=== PATIENT | female | born 1955 | race Caucasian/White ===

== ENCOUNTER → 2016-07-22 | Outpatient (CLI) | payer MEDICARE ==
[2016-03-20 11:00] VITALS: BP 94/52
[~2016-07-22] MED LIST: ASPI81TA2 PO; BACL20TA PO; BUTA1TAB23 PO; BUTA1TAB28 PO; CELE200C PO; CHOL5000 PO; DIAZEPAM10 MG PO; DOCU100C PO; FLUO40CA2 PO; FLUT16SP NS; GABA600T2 PO; GUAI-42 PO; IBUP-1060 PO; MULT-98 PO; MV-M1TAB8 PO; OXYB10TA PO; OXYB5TAB7 PO; OXYC15TA PO; VENTOLIN HFA18 GM INH; VIT1TABL65 PO; VIT1TABL81 PO; VIT500LI PO; Vitamin B 12; WARF-78 PO
--- NOTE | 2016-07-22 15:09 | EKG ---
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
[2016-07-22 15:57] LABS: BASO # 0.1 x10^3/uL (0.0-0.2); BASO % 1 % (0-3); EOS % 2 % (0-3); LYMPH # 2.3 x10^3/uL (1.0-4.8); LYMPH % 26 % (24-48); MEAN CORPUSCULAR HEMOGLOBIN 27 pg (25-35); MEAN CORPUSCULAR HGB CONC 33 g/dL (31-37); MEAN CORPUSCULAR VOLUME 81 fL (79-100); MONO % 8 % (0-9); NEUT % 64 % (31-73); PLATELET COUNT 210 x10^3/uL (140-400); RED BLOOD COUNT 5.55 x10^6/uL (3.50-5.40); RED CELL DISTRIBUTION WIDTH 17.3 % (11.5-14.5); WHITE BLOOD COUNT 8.7 x10^3/uL (4.0-11.0)
[2016-07-22 15:58] LABS: BILIRUBIN,URINE NEGATIVE (NEG); GLUCOSE,URINE NEGATIVE (NEG); NITRITE,URINE NEGATIVE (NEG); PROTEIN,URINE NEGATIVE (NEG-TRACE); UROBILINOGEN,URINE 0.2 mg/dL (0.2 mg/dL)
[2016-07-22 16:06] LABS: BACTERIA,URINE 0 /HPF (0-FEW); RBC,URINE OCC /HPF (0-2); SQUAMOUS EPITHELIAL CELL,UR MOD /LPF
[2016-07-22 16:07] LABS: PROTHROMBIN TIME PATIENT 12.8 SEC (11.7-14.0)
--- NOTE | 2016-07-22 16:08 | RAD ---
Exam: PA and lateral chest radiograph History: Preoperative for hip surgery. Comparison: 05/30/2015. Findings: Cardiomediastinal silhouette is within normal limits for size. Bilateral lung [place] are free of focal infiltrate. No pleural effusion is seen. Again seen is mild accentuation of interstitial markings, may indicate mild fibrotic change. ACDF changes are seen involving the lower cervical spine. Impression: 1. No acute cortical pulmonary process. 2. Mild fibrotic change. 3. ACDF changes of lower cervical spine.
[2016-07-22 16:15] LABS: ALBUMIN 3.9 g/dL (3.4-5.0); CALCIUM 10.4 mg/dL (8.5-10.1); CREATININE 0.5 mg/dL (0.6-1.0); GFR 125.9; POTASSIUM 4.4 mmol/L (3.5-5.1)
== END | disposition home or self-care (01) ==
LOC: SURGPAT 13:18
PROVIDERS: ATTEND Orthopaedic Surgery
DX: S72.112A Displaced fracture of greater trochanter of left femur, initial encounter for closed fracture (principal); W19.XXXA Unspecified fall, initial encounter; Y93.89 Activity, other specified; Y92.89 Other specified places as the place of occurrence of the external cause; Y99.8 Other external cause status
CPT/HCPCS: 36415; 71020; 80048; 81001; 82040; 85027; 85610; 85651; 85730; 87086; 87641; 93005

== ENCOUNTER 2016-08-22 15:23 | Emergency (ER) | payer MEDICARE ==
[~2016-08-22] VITALS: Ht 165.1 cm; Wt 46.7 kg
[~2016-08-22 15:23] MED LIST changes: +ASCO10002 PO; +WARF3TAB7 PO
--- NOTE | 2016-08-22 15:41 | EKG ---
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
--- NOTE | 2016-08-22 16:18 | PHYS DOC ---
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 She arrives by EMS stating that she had fallen and she was tried to get herself to the bathroom. She states that he she hit her head. She denies any loss of consciousness. Patient states that she is having altered mental status where she has forgotten her name and for and some dates and things that are going on. She states that she is aware of this because the nursing staff has told her. Patient states she is having thoracic and lumbar spine pain as well as left hip pain and discomfort. Patient states she is over at the [facility] because she had left hip surgery, although I do not see any surgical incisions on the left hip. Review of Systems Review of Systems Constitutional: Denies fever or chills [] Eyes: Denies change in visual acuity, redness, or eye pain [] HENT: Denies nasal congestion or sore throat [] Respiratory: Denies cough or shortness of breath [] Cardiovascular: No additional information not addressed in HPI [] GI: Denies abdominal pain, nausea, vomiting, bloody stools or diarrhea [] : Denies dysuria or hematuria [] Musculoskeletal: back pain left joint pain [] Integument: Denies rash or skin lesions [] Neurologic: Denies headache, focal weakness or sensory changes [] Endocrine: Denies polyuria or polydipsia [] Allergies Allergies Allergies Coded Allergies Type Severity Reaction Last Updated Verified No Known Drug Allergies 08/02/16 No Physical Exam Physical Exam Constitutional: Well developed, well nourished, no acute distress, non-toxic appearance. [] HENT: Normocephalic, atraumatic, bilateral external ears normal, oropharynx moist, no oral exudates, nose normal. Bilateral tympanic membranes appear to be normal. Eyes: PERRLA, EOMI, conjunctiva normal, no discharge. [] Neck: Normal range of motion, no tenderness, supple, no stridor. [] Cardiovascular:Heart rate regular rhythm, no murmur [] Lungs & Thorax: Bilateral breath sounds clear to auscultation [] Abdomen: Bowel sounds normal, soft, no tenderness, no masses, no pulsatile masses. [] Skin: Warm, dry, no erythema, no rash. [] Back: No cervical spine tenderness no step-offs no deformities no crepitus noted. Patient does have tenderness noted on the thoracic and lumbar spine area. Crepitus no deformities or step-offs noted. Extremities: Left hip tenderness, no cyanosis, no clubbing, ROM intact, no edema. No deformities no bruising and no discoloration noted. Peripheral pulses are 2+ cap refill brisk less than 2 seconds. Right leg appears to be shorter than the left. Neurologic: Alert and oriented X 3, normal motor function, normal sensory function, no focal deficits noted. Pleasant oriented to person place and time. Psychologic: Affect normal, judgement normal, mood normal. [] Current Patient Data Vital Signs Vital Signs Date Time Temp Pulse Resp B/P (MAP) Pulse Ox O2 Delivery O2 Flow Rate FiO2 08/22/16 18:14 72 18 144/90 (108) 95 Room Air 08/22/16 15:23 97.6 97.6 Lab Values Laboratory Tests Test 08/22/16 17:07 08/22/16 17:14 White Blood Count 9.2 x10^3/uL (4.0-11.0) Red Blood Count 4.20 x10^6/uL (3.50-5.40) Hemoglobin 11.3 g/dL (12.0-15.5) L Hematocrit 34.6 % (36.0-47.0) L Mean Corpuscular Volume 82 fL (79-100) Mean Corpuscular Hemoglobin 27 pg (25-35) Mean Corpuscular Hemoglobin Concent 33 g/dL (31-37) Red Cell Distribution Width 17.3 % (11.5-14.5) H Platelet Count 350 x10^3/uL (140-400) Neutrophils (%) (Auto) 71 % (31-73) Lymphocytes (%) (Auto) 19 % (24-48) L Monocytes (%) (Auto) 7 % (0-9) Eosinophils (%) (Auto) 3 % (0-3) Basophils (%) (Auto) 1 % (0-3) Neutrophils # (Auto) 6.5 x10^3uL (1.8-7.7) Lymphocytes # (Auto) 1.7 x10^3/uL (1.0-4.8) Monocytes # (Auto) 0.6 x10^3/uL (0.0-1.1) Eosinophils # (Auto) 0.3 x10^3/uL (0.0-0.7) Basophils # (Auto) 0.1 x10^3/uL (0.0-0.2) Prothrombin Time 24.3 SEC (11.7-14.0) H Prothrombin Time INR 2.4 (0.8-1.1) H Sodium Level 140 mmol/L (136-145) Potassium Level 4.5 mmol/L (3.5-5.1) Chloride Level 101 mmol/L (98-107) Carbon Dioxide Level 31 mmol/L (21-32) Anion Gap 8 (6-14) Blood Urea Nitrogen 17 mg/dL (7-20) Creatinine 0.7 mg/dL (0.6-1.0) Estimated GFR (Cockcroft-Gault) 85.4 BUN/Creatinine Ratio 24 (6-20) H Glucose Level 90 mg/dL (70-99) Calcium Level 9.5 mg/dL (8.5-10.1) Total Bilirubin 0.3 mg/dL (0.2-1.0) Aspartate Amino Transferase (AST) 25 U/L (15-37) Alanine Aminotransferase (ALT) 19 U/L (14-59) Alkaline Phosphatase 111 U/L (46-116) Troponin I Quantitative < 0.017 ng/mL (0.000-0.055) Total Protein 6.4 g/dL (6.4-8.2) Albumin 3.1 g/dL (3.4-5.0) L Albumin/Globulin Ratio 0.9 (1.0-1.7) L Urine Collection Type Unknown Urine Color Yellow Urine Clarity Clear Urine pH 6.5 Urine Specific [place] 1.010 Urine Protein Negative mg/dL (NEG-TRACE) Urine Glucose (UA) Negative mg/dL (NEG) Urine Ketones (Stick) Negative mg/dL (NEG) Urine Blood Negative (NEG) Urine Nitrite Negative (NEG) Urine Bilirubin Negative (NEG) Urine Urobilinogen Dipstick 1.0 mg/dL (0.2 mg/dL) Urine Leukocyte Esterase Trace (NEG) Urine RBC 0 /HPF (0-2) Urine WBC 0 /HPF (0-4) Urine Squamous Epithelial Cells Few /LPF Urine Transitional Epithelial Cells Few /LPF Urine Amorphous Sediment Present /HPF Urine Bacteria Moderate /HPF (0-FEW) Laboratory Tests 08/22/16 17:07 Laboratory Tests 08/22/16 17:07 EKG EKG [] Radiology/Procedures Radiology/Procedures [] Thoracic and lumbar x-rays reviewed by myself. Hip x-rays reviewed by radiology. Head neck CT negative for acute pathology. Course & Med Decision Making Course & Med Decision Making Pertinent Labs and Imaging studies reviewed. (See chart for details) Dr. Almeida is aware of the assessment obtained. He will also be assisting with patient's care. [] 60-year-old female presenting to the emergency department for reported confusion and reported low blood pressure however on arrival here the patient is GCS of 15 with a normal blood pressure. Her respiratory rate was recorded at 10 however during my examination the patient's respiratory rate was 20 and believe this to be an error. A loved one is here with the patient today and reports intermittent confusion over the past few days. Head CT unremarkable. GCS 15. Patient is nontoxic appearing. Normal vital signs. X-rays of the spine are unremarkable for acute pathology. Head CT unremarkable. A Shantz warfarin is within therapeutic range. Urine analysis showed moderate bacteriuria. We'll give the patient Keflex given the patient is on warfarin currently and have the patient recheck her INR over the next 2 days with her primary care doctor. The patient was in discharged back to her long-term care facility. They were to return if their symptoms worsened or if they were concerned for any reason. Face -to-face discharge instructions and return precautions were given. Patient's questions were answered to their satisfaction. Patient is comfortable plan. Dragon Disclaimer Dragon Disclaimer This electronic medical record was generated, in whole or in part, using a voice recognition dictation system. Departure Departure Impression: Primary Impression: Fatigue Additional Impression: Malaise Disposition: HOME, SELF-CARE Condition: STABLE Referrals: WILLOW GANDHI MD (PCP) Patient Instructions: Warfarin, Bacz-[id number] Additional Instructions: Thank you for allowing us to participate in your care today. 1. You will need your INR checked in 2 days. This will be done through your primary care doctor 2. Come back for any new or concerning findings. Followup with your primary care physician in 2 days if your symptoms do not improve. If you do not have a primary care provider you can ask for a list of our primary care providers. Return to the emergency department you have any new or concerning findings. This should be evaluated by the primary care physician and any necessary consulting services for continued management within a few days after discharge. Return to emergency room if you have any new or concerning symptoms including but not limited to fever, chills, nausea, vomiting, intractable pain, any new rashes, chest pain, shortness of air, uncontrolled bleeding, difficulty breathing, and/or vision loss. You may have been prescribed medication that can change in your level of thinking and ability to operate machinery. These medications include hydrocodone and Ativan. Also, Benadryl has been known to do this as well. Be sure to check with your pharmacist and ask if the medications you've prescribed can affect your level of consciousness. I recommend not operating heavy machinery or driving while on medication such as these. Scripts Cephalexin (KEFLEX) 250 Mg Capsule 1 CAP PO QID, #28 CAP Prov: CINDY ALMEIDA MD 08/22/16 Problem Qualifiers ZONIA NORRIS APRN August 22, 2016 16:18 CINDY ALMEIDA MD August 22, 2016 18:12
--- NOTE | 2016-08-22 16:45 | RAD ---
EXAM: Head and cervical spine CT without contrast. HISTORY: Fall. TECHNIQUE: Computed tomography head and cervical spine were obtained without contrast. One or more of the following individualized dose reduction techniques were utilized for this examination: 1. Automated exposure control. 2. Adjustment of the mA and/or kV according to patient size. 3. Use of iterative reconstruction technique. COMPARISON: 10/03/2006. FINDINGS: Head: There is no acute or subacute hemorrhage. There is no mass effect or midline shift. There is no hydrocephalus. There are scattered areas of hypodensity within the cerebral white matter, likely due to chronic small vessel disease. There is mild age-appropriate cerebral volume loss. There is no fracture. There is moderate ethmoid sinus mucosal thickening. There is complete opacification of the right frontal sinus with associated wall thickening due to chronic sinusitis. There are findings consistent with maxillary antrostomy/uncinectomy surgery and turbinate resection. The mastoid air cells are clear. Cervical spine: There is instrumented anterior spinal fusion and interbody fusion and C4-C6. There is posterior spinal fusion instrumentation traversing the right C3 and C4 lamina. There is mild anterolisthesis of C7 on T1. There is bulky osteophyte formation at the craniocervical junction. There is surrounding pannus which may be due to the sequela of rheumatoid arthritis. There is no suspicious lytic or sclerotic osseous lesion. No fracture is seen. There is calcified plaque within the carotid bifurcations. The thyroid is enlarged. No discrete thyroid lesion is seen. At C2-C3, there is a disc bulge and endplate remodeling. There is no stenosis. At C3-C4, there is a broad-based posterior central disc osteophyte complex bulge and a disc bulge and endplate remodeling. There is uncovertebral arthropathy. There is mild bilateral foraminal stenosis. There is mild central canal stenosis. At C4-C5, there is a right paracentral disc osteophyte complex. There is instrumented fusion. There is mild right foraminal stenosis. There is mild central canal stenosis. At C5-C6, there is a broad-based posterior central to right paracentral osteophyte superimposed on endplate remodeling. There is mild right foraminal stenosis. There is mild central canal stenosis. At C6-C7, there is a disc bulge and endplate remodeling. There is bilateral uncovertebral arthropathy. There is moderate right and mild left foraminal stenosis. There is mild central canal stenosis. IMPRESSION: 1. No acute intracranial finding or evidence of acute cervical spine trauma. 2. Decreased attenuation within the cerebral white matter, a nonspecific finding likely due to chronic small vessel disease. 3. Multilevel degenerative changes involving the cervical spine, described in detail above. 4. Instrumented fusion at C4-C6 and involving the right C3 and C4 lamina.
[2016-08-22 17:15] LABS: BASO # 0.1 x10^3/uL (0.0-0.2); BASO % 1 % (0-3); EOS % 3 % (0-3); HEMATOCRIT 34.6 % (36.0-47.0); HEMOGLOBIN 11.3 g/dL (12.0-15.5); LYMPH # 1.7 x10^3/uL (1.0-4.8); LYMPH % 19 % (24-48); MEAN CORPUSCULAR HEMOGLOBIN 27 pg (25-35); MEAN CORPUSCULAR HGB CONC 33 g/dL (31-37); MEAN CORPUSCULAR VOLUME 82 fL (79-100); MONO % 7 % (0-9); NEUT % 71 % (31-73); PLATELET COUNT 350 x10^3/uL (140-400); RED CELL DISTRIBUTION WIDTH 17.3 % (11.5-14.5); WHITE BLOOD COUNT 9.2 x10^3/uL (4.0-11.0)
[2016-08-22 17:20] LABS: BILIRUBIN,URINE NEGATIVE (NEG); GLUCOSE,URINE NEGATIVE (NEG); NITRITE,URINE NEGATIVE (NEG); PH,URINE 6.5; PROTEIN,URINE NEGATIVE (NEG-TRACE)
[2016-08-22 17:22] LABS: CALCIUM 9.5 mg/dL (8.5-10.1); CREATININE 0.7 mg/dL (0.6-1.0); GFR 85.4; POTASSIUM 4.5 mmol/L (3.5-5.1)
[2016-08-22 17:24] LABS: INR 2.4 (0.8-1.1); PROTHROMBIN TIME PATIENT 24.3 SEC (11.7-14.0)
[2016-08-22 17:28] LABS: ALBUMIN 3.1 g/dL (3.4-5.0); ALBUMIN/GLOBULIN RATIO 0.9 (1.0-1.7); TOTAL BILIRUBIN 0.3 mg/dL (0.2-1.0); TOTAL PROTEIN 6.4 g/dL (6.4-8.2)
--- NOTE | 2016-08-22 17:33 | RAD ---
EXAM: Pelvis and lateral hips, 5 views. HISTORY: Pain. COMPARISON: 08/17/2016. FINDINGS: A frontal view of the pelvis and frontal and frog-leg views of both hips are obtained. There is a left hip arthroplasty in expected position. There is a lateral plate and cerclage wires traversing the femoral stem component likely due to a prior periprosthetic fracture. The right hip is unremarkable. There is degenerative change at the lower lumbar levels, incompletely a vaginal the current exam. There is bone demineralization. IMPRESSION: 1. Left hip arthroplasty with lateral femoral internal fixation and cerclage wires. 2. Degenerative change involving the lumbar spine. 3. Bone demineralization.
--- NOTE | 2016-08-22 17:33 | RAD ---
EXAM: Lumbar spine, 3 views; thoracic spine, 3 views. HISTORY: Pain. COMPARISON: MRI dated 11/05/2015. FINDINGS: Lumbar spine: There is mild lumbar levoscoliosis. There is a mild anterior wedge compression deformity of L1, chronic in appearance. There is endplate remodeling and facet arthropathy at all levels, predominantly L4-L5 and L5-S1. There is bone demineralization. There is partial visual lesion of the left hip arthroplasty. Thoracic spine: There is no listhesis. The vertebral bodies are normal in height and the disc spaces are preserved. There is partial visualization of anterior cervical spinal fusion instrumentation. IMPRESSION: 1. No acute osseous finding. 2. Mild chronic anterior wedge compression deformity of L1, stable compared to the prior MRI dated 11/05/2015. 3. Multilevel degenerative change throughout the lumbar spine, predominantly at the lower lumbar levels. 4. Lumbar scoliosis.
[2016-08-22 17:36] LABS: BACTERIA,URINE MODERATE /HPF (0-FEW); RBC,URINE 0 /HPF (0-2); SQUAMOUS EPITHELIAL CELL,UR FEW /LPF; WBC,URINE 0 /HPF (0-4)
[2016-08-22 18:14] VITALS: BP 144/90
[2016-08-22] MEDS ORDERED: CEPH-263 PO (18:14)
== END 2016-08-22 18:33 | disposition home or self-care (01) ==
LOC: ER 16:59
DX: R53.83 Other fatigue (principal); R53.81 Other malaise; M54.6 Pain in thoracic spine; M54.5 Low back pain; R41.82 Altered mental status, unspecified; M25.552 Pain in left hip; I95.9 Hypotension, unspecified; F41.9 Anxiety disorder, unspecified; J44.9 Chronic obstructive pulmonary disease, unspecified; F32.9 Major depressive disorder, single episode, unspecified; G62.9 Polyneuropathy, unspecified; F17.200 Nicotine dependence, unspecified, uncomplicated; Z98.890 Other specified postprocedural states; W18.39XA Other fall on same level, initial encounter; Y93.89 Activity, other specified; Y92.89 Other specified places as the place of occurrence of the external cause; Y99.8 Other external cause status
CPT/HCPCS: 36415; 70450; 72072; 72100; 72125; 73521; 80053; 81001; 84484; 85027; 85610; 87086; 93005; 99285-25

== ENCOUNTER → 2016-11-16 | Outpatient (CLI) | payer MEDICARE ==
[~2016-11-16] MED LIST changes: +ASPI-630 PO; -ASPI81TA2 PO; +CEPH-263 PO; +DOCU-150 PO; -DOCU100C PO; +GUAI-107 PO; -GUAI-42 PO
--- NOTE | 2016-11-16 12:42 | KCIC ---
Bone mineral density exam History: Postmenopausal, takes calcium supplement, hysterectomy, history of eating disorder Comparison: None Findings: Bone mineral density examination utilizing DEXA was performed. Right hip bone mineral density of 0.503 g/cm2 corresponds with a T score -3.6, Z score -2.6. The bone mineral density of the lumbar spine was 0.662 g/cm2 which corresponds with a T-score of -3.5, Z score -2.0. By World Congress on Osteoporosis criteria, a T score of 0 to-1 SD is considered to be within normal limits. A T score of -1 to -2.5 SD is considered osteopenia. A T score less than -2.5 SD is considered osteoporosis Impression: 1. There is osteoporosis of the lumbar spine and the right hip. Electronically signed by: Júnior Valentino MD (11/16/2016 12:39 PM) [facility]-KC[facility]
== END | disposition home or self-care (01) ==
LOC: KCIC DEXA 10:37
PROVIDERS: ATTEND Family Medicine
DX: M81.0 Age-related osteoporosis without current pathological fracture (principal); Z78.0 Asymptomatic menopausal state
CPT/HCPCS: 77080

== ENCOUNTER → 2016-11-25 | Outpatient (CLI) | payer MEDICARE ==
--- NOTE | 2016-11-25 11:22 | KCIC ---
Examination: MRI of the left ankle without contrast HISTORY: History of left ankle stress fracture, Comparison: None available TECHNIQUE: Multiplanar, multisequence MR imaging of the left ankle is performed without contrast FINDINGS: The attachment of the Achilles tendon to the calcaneus grossly appears intact. The attachment of the plantar fascia to inferior aspect of the calcaneus grossly appears intact. Fat is present within the sinus tarsi. The ankle mortise appears intact. Mild degenerative changes identified in the ankle joint. The visualized flexor tendons, anterior extensor compartment tendons, peroneal tendons grossly appears unremarkable. The visualized anterior talofibular ligament, superior talofibular ligament, anterior tibiofibular ligament and posterior tibiofibular ligament grossly appears intact. The deltoid ligament is intact. The visualized skeleton fibular ligament is intact. There is mild trabecular edema identified in the distal tip of the lateral malleolus. Minimal soft tissue edema identified posterior to the calcaneus in the soft tissue. No acute fracture identified. Minimal fluid identified in the posterior subtalar joint. IMPRESSION: 1. Mild trabecular edema identified in the distal tip of the lateral malleolus, nonspecific could be stress reactive change. 2. Mild degenerative changes ankle joint. 3. Minimal amount of fluid identified in the posterior subtalar joint, nonspecific. Electronically signed by: Ray Hayden MD (11/25/2016 11:19 AM) [facility]-KC[facility]
== END | disposition home or self-care (01) ==
LOC: KCIC MRI 08:58
PROVIDERS: ATTEND Orthopaedic Surgery Foot and Ankle Surgery
DX: M19.072 Primary osteoarthritis, left ankle and foot (principal)
CPT/HCPCS: 73721

== ENCOUNTER 2017-09-05 16:47 | Emergency (ER) | payer MEDICARE ==
[2017-09-05] MEDS: HYDROcodone/APAP 5/325MG 1 TAB TABLET PO (17:43)
== END 2017-09-05 19:09 | disposition home or self-care (01) ==
LOC: ER 16:47
DX: S09.90XA Unspecified injury of head, initial encounter (principal); S43.401A Unspecified sprain of right shoulder joint, initial encounter; M54.2 Cervicalgia; J44.9 Chronic obstructive pulmonary disease, unspecified; M81.0 Age-related osteoporosis without current pathological fracture; R42 Dizziness and giddiness; Z90.710 Acquired absence of both cervix and uterus; W18.39XA Other fall on same level, initial encounter; Y93.89 Activity, other specified; Y92.89 Other specified places as the place of occurrence of the external cause; Y99.8 Other external cause status
CPT/HCPCS: 70450; 70486; 72125; 73030; 99284

== ENCOUNTER → 2018-01-17 | Outpatient (CLI) | payer MEDICARE ==
[2017-09-05 17:16] VITALS: BP 178/106
[~2018-01-17] MED LIST changes: +ACET-704 PO; +ALEN70TA5 PO; +AMLO2.5T3 PO; -GUAI-107 PO; +GUAI-108 PO; +HYDR-971 PO; +IOHEXOL 180 MG/ML 10 ML VIAL. ONE; +LIDOCAINE 1% PF 2 ML VIAL. ONE; +ONDA4TAB11 PO; +POLY2500 PO; +SERT100T PO; +WARF3TAB50 PO; -WARF3TAB7 PO; +methylPREDNISolone ACETATE 40 MG/ML VIAL. ONE; +methylPREDNISolone ACETATE 80 MG/ML VIAL. ONE; +vitamin b 6 PO
--- NOTE | 2018-01-17 13:25 | PAIN ---
DATE OF SERVICE: 01/17/2018 DIAGNOSES: Lumbar radiculopathy with lumbar degenerative disk disease, does wake up. HISTORY OF PRESENT ILLNESS: The patient is a 62-year-old female who returns for followup, last seen 01/21/2016, underwent lumbar epidural steroid injections at that time. The patient did well, but only temporarily for about 3-4 weeks following the injections. The patient reports it is only about 50% better at that time. The patient has been [facility] since this time with a foot surgery on her left foot since her last visit and also revision of her left hip surgery with new instrumentation. The patient reports significant pain in the low back, bilateral lower extremities, mostly in the left leg, mostly at lateral anterior aspect of the thigh, anterior medial thigh, medial lower leg, posterior lower leg into the left foot, aching, sharp, tight, tingling, cramping and becoming radiating more constant, more unbearable, worse with walking, standing, changing positions, also wakens her from sleep on and off, but not every night. The patient reports pain is 7 on a scale of 10 at all times, worst, average and its least and is a 7 today. The patient reports no new motor or sensory deficits, but significant pain, which has been managed recently with oxycodone as well as tramadol and then most recently Tylenol No. 3, which she is taking currently and also taking gabapentin, meloxicam, Celebrex. The patient reports still significant pain despite the medicine management that she has been undergoing and was not happy with the management that she is receiving and returns here on the recommendation of her orthopedic surgeon to consider other options and possible even a spinal cord stimulator in the future. PHYSICAL EXAMINATION: VITAL SIGNS: The patient's blood pressure 192/105, pulse 69, respirations 18, temperature 98.8 degrees Fahrenheit, weight is 98 pounds. GENERAL: The patient is awake, alert, oriented, appropriate, very pleasant demeanor. HEENT: Head is normocephalic, atraumatic. Extraocular movements are intact, symmetrical. Oral cavity: Mucous membranes moist and pink. Dentition is intact. NECK: Shows anterior throat supple without palpable lymphadenopathy noted. Swallow reflex is symmetrical. CHEST: Shows normal with inspection. Breath sounds are clear to auscultation bilaterally. HEART: Shows S1, S2 clear. No murmurs auscultated. ABDOMEN: Soft, nontender, nondistended. No palpable organomegaly is noted. No rebound or guarding demonstrated. BACK: Shows spine grossly in the midline. Normal appearing thoracic kyphosis and minor flattening of lumbar lordotic curvature. Lumbar paraspinous muscle shows symmetrical on inspection and palpation shows some moderate tenderness diffusely bilaterally, but only diffusely without radiation. The patient has good rotational motion of the lumbar spine, both laterally as well as extension and flexion without significant difficulty. EXTREMITIES: Lower extremities show deep tendon reflexes at 1+ in the patellar and tendo calcaneus tendons. Motor is approximately 3-4 on a scale of 5 on the left and 4/5 on the right with dorsiflexion, extension, quadriceps and hamstring flexion. The patient has well-healed surgical scarring over the left hip as well as the left anterior aspect of the foot. Peripheral pulses are 1+, however, about posteriorly in the posterior tibial without any edema that is bilaterally. Straight leg raising noted to be positive on the left, but it is difficult to establish secondary to the patient's recent extensive hip surgery. Options were discussed with the patient. The patient's old chart was reviewed as her medication regimen updated. Current review of systems updated today as well. We will proceed with a lumbar epidural steroid injection today with fluoroscopic guidance. She has done fairly well with these in the past. Risks were again discussed including, but not limited to bleeding, infection, possibility of epidural hematoma, subsequent neurologic compromise, dural puncture, headaches, spinal cord and/or nerve damage, side effects of steroid medication and poor results regarding pain control. The patient understands and wished to proceed. The patient will return to clinic in approximately 2 weeks for followup, was counseled on return appointment, activity level and side effects to be aware of. The patient also given information regarding spinal cord stimulator to look into this as well. DIAGNOSES: Lumbar radiculopathy with lumbar degenerative disk disease. PROCEDURE: Lumbar epidural steroid injection, translaminar approach L4-L5 level using C-arm fluoroscopic guidance under sterile prep and drape using local anesthetic. MEDICATION INJECTED: A total of 120 mg of Depo-Medrol plus 10 mL of preservative-free normal saline and 2 mL of Isovue for contrast. CONDITION AT DISCHARGE: Stable. The patient tolerated the procedure well, had no complications. ELLIS NEWMAN MD DR: John JOB#: [id number] / [id number]
== END | disposition home or self-care (01) ==
LOC: PNCL 09:55
PROVIDERS: ATTEND Anesthesiology
DX: M51.16 Intervertebral disc disorders with radiculopathy, lumbar region (principal); Z79.899 Other long term (current) drug therapy; Z90.710 Acquired absence of both cervix and uterus; J44.9 Chronic obstructive pulmonary disease, unspecified; Z98.49 Cataract extraction status, unspecified eye; Z90.721 Acquired absence of ovaries, unilateral; M19.90 Unspecified osteoarthritis, unspecified site; Z96.642 Presence of left artificial hip joint; F41.9 Anxiety disorder, unspecified; F32.9 Major depressive disorder, single episode, unspecified; F17.210 Nicotine dependence, cigarettes, uncomplicated; Z98.890 Other specified postprocedural states; Z80.8 Family history of malignant neoplasm of other organs or systems
CPT/HCPCS: 62323; J1030; J1040; Q9965

== ENCOUNTER → 2018-02-01 | Outpatient (CLI) | payer MEDICARE ==
[2017-09-05 17:16] VITALS: BP 178/106
[~2018-02-01] MED LIST changes: -LIDOCAINE 1% PF 2 ML VIAL. ONE
--- NOTE | 2018-02-02 01:38 | PAIN ---
DATE OF SERVICE: 02/01/2018 PROGRESS NOTE FOR PAIN CLINIC DIAGNOSIS: Lumbar radiculopathy with lumbar degenerative disk disease. HISTORY OF PRESENT ILLNESS: The patient is a 62-year-old female who returns for followup status post lumbar epidural steroid injection x 1. The patient reports about 50% improvement overall with pain in the low back and bilateral lower extremities, left greater than right. The patient reports it is tingling, cramping, aching, sharp, shooting, radiating, becoming more constant with time. It was much better initially, was increasing her distance walking and activity around the house, traveling with greater ease and comfort. The patient reports sporadically it awakens her from sleep, but not every night. The patient reports pain is 9 on a scale of 10 at its worst average and at its least it is 9 today. The patient reports no new motor or sensory deficits, no new bowel or bladder incontinence or other complaints. PHYSICAL EXAMINATION: VITAL SIGNS: The patient's blood pressure is 180/103, pulse 96, respirations 16, temperature 98.3 degrees Fahrenheit, height is 5 feet 4 inches, weight is 99 pounds. GENERAL: The patient is awake, alert, oriented, appropriate, very pleasant demeanor. HEENT: Head is normocephalic, atraumatic. Extraocular movements are intact and symmetrical. Oral cavity: Mucous membranes moist and pink. Dentition intact. NECK: Shows anterior throat supple without palpable lymphadenopathy noted. Swallow reflex is symmetrical. CHEST: Shows normal with inspection. Breath sounds clear to auscultation bilaterally. HEART: Shows S1, S2 clear. No murmurs auscultated. ABDOMEN: Soft, nontender, nondistended. No palpable organomegaly is noted. No rebound or guarding demonstrated. BACK: The patient's back shows spine grossly in the midline. Normal-appearing thoracic kyphosis and some slight flattening of lumbar lordotic curvature. Lumbar paraspinous muscle shows symmetrical on inspection; with palpation moderate tenderness bilaterally, but only diffusely in the upper, middle and lower distribution of the paraspinous muscles. EXTREMITIES: Lower extremities show deep tendon reflexes 1+ in the patella and tendo calcaneus tendons. Motor exam is 3/4 on a scale of 5 on the left and 4/5 on the right. Peripheral pulses are 1+ posterior tibia. No peripheral edema is noted bilaterally. Options were discussed with the patient, the patient's old chart was reviewed and her current medication regimen updated, current review of systems updated today as well and we will proceed with a second lumbar epidural steroid injection in this series with fluoroscopic guidance. Risks were again discussed including, but not limited to bleeding, infection, possibility of epidural hematoma, subsequent neurological compromise, dural puncture, headaches, spinal cord and/or nerve damage, side effects of steroid medication and poor results regarding pain control. The patient understands and wished to proceed. The patient to return to clinic in approximately 2 weeks for followup, was counseled on return appointment, activity level and side effects to be aware of. DIAGNOSIS: Lumbar radiculopathy with lumbar degenerative disk disease. PROCEDURE: Lumbar epidural steroid injection, translaminar approach at L4-L5 level using C-arm fluoroscopic under sterile prep and drape using local anesthetic. MEDICATION INJECTED: A total of 120 mg Depo-Medrol plus 10 mL of preservative-free normal saline and 2 mL of Isovue for contrast. CONDITION AT DISCHARGE: Stable. The patient tolerated the procedure well, had no complications. ELLIS NEWMAN MD DR: LINDEN/vianca JOB#: [id number] / [id number]
== END | disposition home or self-care (01) ==
LOC: PNCL 10:36
PROVIDERS: ATTEND Anesthesiology
DX: M51.16 Intervertebral disc disorders with radiculopathy, lumbar region (principal); F41.9 Anxiety disorder, unspecified; J44.9 Chronic obstructive pulmonary disease, unspecified; F32.9 Major depressive disorder, single episode, unspecified; F17.210 Nicotine dependence, cigarettes, uncomplicated; M19.90 Unspecified osteoarthritis, unspecified site; Z98.49 Cataract extraction status, unspecified eye; Z85.89 Personal history of malignant neoplasm of other organs and systems; Z98.890 Other specified postprocedural states; Z79.899 Other long term (current) drug therapy; Z90.710 Acquired absence of both cervix and uterus; Z90.721 Acquired absence of ovaries, unilateral; Z96.642 Presence of left artificial hip joint
CPT/HCPCS: 62323; J1030; J1040; Q9965

== ENCOUNTER → 2018-02-15 | Outpatient (CLI) | payer MEDICARE ==
[2017-09-05 17:16] VITALS: BP 178/106
[~2018-02-15] MED LIST changes: +HYDR-3164 PO; -HYDR-971 PO; +LIDOCAINE 1% PF 2 ML VIAL. ONE
--- NOTE | 2018-02-15 20:34 | PAIN ---
DATE OF SERVICE: 02/15/2018 PROGRESS NOTE FOR PAIN CLINIC DIAGNOSIS: Lumbar radiculopathy with lumbar degenerative disk disease. HISTORY OF PRESENT ILLNESS: The patient is a 62-year-old female who returns for followup status post lumbar epidural steroid injection x 2. The patient reports only about 20% improvement after the last injection with about 50% improvement from the first injection and still pain in the low back, bilateral lower extremities, somewhat worse on the left lower extremity with some numbness and tingling as well. The patient reports it is aching, dull across the low back, sharp and shooting, also burning and tingling in the lower extremities, radiating, becoming more unbearable, more severe. The patient reports it is an 8 on a scale of 10 at all times, worst, average and at its least and is an 8 on a scale of 10 today. The patient reports it awakens her from sleep at night at least once or twice and reports no new motor or sensory deficits and no bowel or bladder incontinence or other complaints. PHYSICAL EXAMINATION: VITAL SIGNS: The patient's blood pressure 155/78, pulse 73, respirations 16 and temperature is 98.3 degrees Fahrenheit. Height is 5 feet 4 inches and weight is 97 pounds. GENERAL: The patient is awake, alert, oriented, appropriate and very pleasant demeanor. HEENT: Head shows normocephalic and atraumatic. The patient wears eye glasses. Extraocular movements are intact and symmetrical. Oral cavity, mucous membranes are moist and pink. Dentition is intact. NECK: Shows anterior throat supple without palpable lymphadenopathy noted. Swallow reflex is symmetrical. CHEST: Shows normal on inspection. Breath sounds clear to auscultation bilaterally. HEART: Shows S1 and S2 clear. No murmurs auscultated. ABDOMEN: Soft, nontender and nondistended. No palpable organomegaly is noted. No rebound or guarding demonstrated. BACK: Shows spine grossly in the midline. Slight exaggeration of the thoracic kyphosis and flattening of lumbar lordotic curvature. Lumbar paraspinous muscle shows symmetrical on inspection, on palpation shows very firm tenderness throughout the upper, middle and lower distribution of the paraspinous muscles diffusely bilaterally without specific radiation. The patient has good rotational motion of lumbar spine, both laterally as well as extension and flexion with only minor tenderness in all planes of rotation and extension and flexion. EXTREMITIES: The patient's lower extremities show deep tendon reflexes at 1+ in the patellar and tendo-calcaneus tendons. Motor exam is approximately 3-4 on a scale 5 on the left, 4/5 on the right with dorsiflexion, extension, quadriceps and hamstring flexion. Peripheral pulses are 1+ posterior tibial. No peripheral edema is noted bilaterally. Options were discussed with the patient and the patient's who accompanies her to visit today and her old chart was reviewed as well as her current medication regimen updated. Current review of systems updated today as well. We will proceed with a third in the series of the lumbar epidural steroid injection today with fluoroscopic guidance. Risks were again discussed including, but not limited to bleeding, infection, possibility of epidural hematoma, subsequent neurologic compromise, dural puncture, headaches, spinal cord and/or nerve damage, side effects of steroid medication and poor results regarding pain control. The patient understands and wished to proceed. The patient will return to the clinic in approximately 2 weeks for followup, was counseled as to return appointment, activity level and side effects to be aware of. Also discussed spinal cord stimulation. The patient was given information regarding this and would like to proceed. We will make the arrangements for a psychiatric evaluation and preauthorization as well. DIAGNOSIS: Lumbar radiculopathy with lumbar degenerative disk disease. PROCEDURE: Lumbar epidural steroid injection, translaminar approach, L4-L5 level using C-arm fluoroscopic guidance under sterile prep and drape using local anesthetic. MEDICATION INJECTED: A total of 120 mg Depo-Medrol plus 10 mL of preservative-free normal saline and 2 mL of Isovue for contrast. CONDITION AT DISCHARGE: Stable. The patient tolerated the procedure well and had no complications. ELLIS NEWMAN MD DR: LINDEN/vianca JOB#: [id number] / [id number]
== END | disposition home or self-care (01) ==
LOC: PNCL 10:46
PROVIDERS: ATTEND Anesthesiology
DX: M51.16 Intervertebral disc disorders with radiculopathy, lumbar region (principal)
CPT/HCPCS: 62323; J1030; J1040; Q9965

== ENCOUNTER → 2018-05-17 | Outpatient (CLI) | payer MEDICARE ==
[2017-09-05 17:16] VITALS: BP 178/106
[~2018-05-17] MED LIST changes: -ALEN70TA5 PO; +ALEN70TA6 PO; -AMLO2.5T3 PO; +AMLO2.5T5 PO; -GABA600T2 PO; +GABA600T7 PO; -IOHEXOL 180 MG/ML 10 ML VIAL. ONE; -LIDOCAINE 1% PF 2 ML VIAL. ONE; -methylPREDNISolone ACETATE 40 MG/ML VIAL. ONE; -methylPREDNISolone ACETATE 80 MG/ML VIAL. ONE
--- NOTE | 2018-05-17 12:30 | PAIN ---
DATE OF SERVICE: 05/17/2018 DIAGNOSES: Lumbar radiculopathy with lumbar degenerative disk disease. HISTORY OF PRESENT ILLNESS: The patient is a 62-year-old female who returns for followup status post lumbar epidural steroid injections x 3, most recently on 02/15/2018. The patient reports about 70% improvement for about 6 weeks after that, with pain still returning in the low back, bilateral lower extremities, posterior gluteus, posterior thighs, posterior calf, lateral thigh, lateral anterior medial calf and feet. The patient reports the pain is getting worse now with time, rated 9 on a scale of 10 at its worst, average and at its least and is a 9 today. The patient reports it is a sharp pain, tingling, cramping, radiating, becoming more constant, more unbearable in the lower extremities. The patient reports it is better with sitting or lying down, but awakens her from sleep occasionally, not every night. The patient reports no new motor or sensory deficits, no new bowel or bladder incontinence or other complaints. Initially, she was doing better with distance walking and doing household activities and work activities at home and traveling with greater ease and comfort, now is returning to his baseline. PHYSICAL EXAMINATION: VITAL SIGNS: The patient's blood pressure 150/100, pulse 101, respirations 18, temperature 98.2 degrees Fahrenheit. Height is 5 feet 4 inches, weight is 91 pounds. GENERAL: The patient is awake, alert, oriented, appropriate, very pleasant demeanor. The patient is accompanied by her spouse. HEENT: Shows normocephalic, atraumatic. Extraocular movements intact and symmetrical. Oral cavity: Mucous membranes moist and pink. Dentition is intact. NECK: Shows anterior throat supple without palpable lymphadenopathy noted. Swallow reflex symmetrical. CHEST: Shows normal with inspection. Breath sounds clear to auscultation bilaterally. HEART: Shows S1, S2 clear. No murmurs auscultated. ABDOMEN: Soft, nontender, nondistended. No palpable organomegaly is noted. No rebound or guarding demonstrated. BACK: Shows spine grossly in the midline. Normal appearing thoracic kyphosis and flattened lumbar lordotic curvature. Lumbar paraspinous muscle shows well-healed surgical scar in the midline. With palpation shows some moderate tenderness diffusely bilaterally with bilateral upper, middle and lower distribution of the paraspinous muscles. The patient's back shows good rotation of motion, however, both laterally as well as extension and flexion without significant difficulty. EXTREMITIES: The patient's lower extremities show deep tendon reflexes 1+ in the patellar and tendo-calcaneus tendons. Motor exam is approximately 3-4 on a scale of 5 with left dorsiflexion, extension, 5/5 on the right. Peripheral pulses are 1+ posterior tibial. No peripheral edema is noted bilaterally. Options were discussed with the patient. The patient's old chart was reviewed as her current medication regimen updated. Current review of systems updated today as well. We will plan on the spinal cord stimulator temporary lead placement. The patient is pending psychiatric evaluation with Dr. Fabby Garsia which is scheduled for 1 week from today. We asked her to inform us when this is completed, and we will get a spinal cord stimulator trial scheduled. The patient will try Medrol Dosepak in the meantime, was given prescription as well as instructions and side effects to be aware of discussed with the patient, and we will follow up as scheduled. ELLIS NEWMAN MD DR: LINDEN/vianca JOB#: [id number] / [id number]
== END | disposition home or self-care (01) ==
LOC: PNCL 08:22
PROVIDERS: ATTEND Anesthesiology
DX: M51.16 Intervertebral disc disorders with radiculopathy, lumbar region (principal)
CPT/HCPCS: G0463

== ENCOUNTER → 2018-06-06 | Outpatient (CLI) | payer MEDICARE ==
[2017-09-05 17:16] VITALS: BP 178/106
--- NOTE | 2018-06-07 05:55 | PAIN ---
DATE OF SERVICE: 06/06/2018 DIAGNOSES: Lumbar radiculopathy with lumbar degenerative disk disease. HISTORY OF PRESENT ILLNESS: The patient is a 62-year-old female who returns for followup status post preauthorization for a spinal cord stimulator temporary lead placement. The patient has obtained this and would like to proceed now as well as psychiatric evaluation, which she was put in a good category for implantable devices and spinal surgeries. The patient reports still significant pain in the low back, bilateral lower extremities, posterior lateral anterior aspect of the thighs and lower legs into the ankles and feet, described as sharp and tight, tingling, becoming more constant, worse with walking, standing, changing positions, especially with stooping and lying on her left side. The patient reports it is a 9 on a scale of 10 at its average, worst and its least and is a 9 on a scale of 10 today. The patient reports no new motor or sensory deficits, no new changes and would like to proceed. PHYSICAL EXAMINATION: VITAL SIGNS: The patient's blood pressure 126/74, pulse 79, respirations are 18, temperature 98.3 degrees Fahrenheit, weight is 90.6 pounds. GENERAL: The patient is awake, alert, oriented, appropriate, very pleasant demeanor. The patient is accompanied by her spouse. HEENT: Exam shows normocephalic, atraumatic. Extraocular movements are intact and symmetrical. Oral cavity: Mucous membranes moist and pink. Dentition is intact. NECK: Shows anterior throat supple without palpable lymphadenopathy noted. Swallow reflex symmetrical. CHEST: Shows normal on inspection. Breath sounds clear to auscultation bilaterally. HEART: Shows S1, S2 clear. No murmurs auscultated. ABDOMEN: Soft, nontender, nondistended. No palpable organomegaly is noted. No rebound or guarding demonstrated. BACK: Shows spine grossly in the midline, normal appearing thoracic kyphosis and lumbar lordotic curvature is slightly flattened. Lumbar paraspinous musculature shows symmetrical on inspection, very tender with palpation in the low lumbar distribution, only moderately so in the upper and middle distribution of paraspinous muscles. The patient has good rotational motion of lumbar spine as well as extension and flexion without exacerbation of pain. EXTREMITIES: Lower extremities show deep tendon reflexes 1+ in the patellar and tendo calcaneus tendons. Motor exam is approximately 3/4 on a scale of 5 with left dorsiflexion and extension and 5/5 on the right. Peripheral pulses are 1+ posterior tibia. No peripheral edema is noted. Options were discussed with the patient. The patient's old chart was reviewed as was her current medication regimen updated. Current review of systems is updated today as well and we will proceed with a spinal cord stimulator temporary lead placement x 2 with fluoroscopic guidance today. Risks were again discussed including, but not limited to bleeding, infection, possibility of epidural hematoma, subsequent neurologic compromise, dural puncture, headaches, spinal cord and/or nerve damage, side effects of steroid medication and poor results regarding pain control. The patient understands and wished to proceed. The patient will return to the clinic in approximately 1 week for removal of the temporary leads and assessment of the pain level with stimulation at that time. DIAGNOSES: Lumbar radiculopathy with lumbar degenerative disk disease. PROCEDURE: Temporary spinal cord stimulator lead placement x 2 under sterile prep and drape using local anesthetic and fluoroscopic guidance under local infiltration of lidocaine. The patient's spine was identified and external marker placed at the T8 vertebral level under sterile prep and drape and then fluoroscopic guidance insertion of the spinal cord stimulator leads was accomplished through insertion site at the L1-L2 interspace, both right and left and midline, right side first using a 14-gauge Tachyus curved epidural needle with stylet for each wire using preservative-free normal saline loss of resistance technique with negative aspiration. Spinal cord stimulator leads were then threaded under direct visualization with both AP and lateral views without difficulty or significant resistance with the right-sided paramedian stimulator lead to lie with the superior tip of the lead at the superior endplate of the T8 vertebral level and the left more paramedian to lie with the superior tip of the lead at the superior endplate of T9 and juxtaposed each wire as well. Lateral radiographs were taken to verify posterior placement in the epidural space and this indeed was verified with each lead. At this time, the needles were removed, stylets were removed. Suture was used to secure the leads x 2 and sterile Tegaderm and bandages were then placed. The patient tolerated the procedure well, had no complications in the immediate postop period. Stimulation programming was carried out with Mr. Stuart Hernandez with [employer]. The patient will follow up throughout the week if any concerns or conditions arise and we will have her back in 1 week for removal and assessment of the stimulation at that time. ELLIS NEWMAN MD DR: LINDEN/vianca JOB#: [id number] / [id number]
== END | disposition home or self-care (01) ==
LOC: PNCL 12:42
PROVIDERS: ATTEND Anesthesiology
DX: M51.16 Intervertebral disc disorders with radiculopathy, lumbar region (principal)
CPT/HCPCS: 63650; C1897

== ENCOUNTER → 2018-06-13 | Outpatient (CLI) | payer MEDICARE ==
[2017-09-05 17:16] VITALS: BP 178/106
--- NOTE | 2018-06-13 18:56 | PAIN ---
DATE OF SERVICE: 06/13/2018 PROGRESS NOTE FOR PAIN CLINIC DIAGNOSES: Lumbar radiculopathy with lumbar degenerative disk disease. HISTORY OF PRESENT ILLNESS: The patient is a 62-year-old female who returns for followup status post spinal cord stimulator temporary lead placement x 1 week. 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 The patient reports she really was not certain that she would like to keep this and would like to think about it further; however, was not getting good significant decrease in pain from the stimulator over the past week. The patient reports it is an aching, sharp, shooting, stabbing, cramping, burning, tingling, radiating pain in the low back and the legs as it was previously the patient reports the pain still on the last week was a 9 on a scale of 9, on average, at worst and at its least and is a 9 today. The patient reports also she has been having difficulty with nausea, has been eating as well and has had some balance issues over the past week and feels that she is still not quite doing well. She did just with some epidural injections. The patient reports no new motor or sensory deficits, no new changes. PHYSICAL EXAMINATION: VITAL SIGNS: The patient's blood pressure is 85/56, pulse 93, respirations 18, temperature 98.2 degrees Fahrenheit. GENERAL: The patient is awake, alert, oriented, appropriate, very pleasant demeanor. The patient is accompanied by her spouse. HEENT: Shows normocephalic, atraumatic. Extraocular movements are intact and symmetrical. The patient wears eye glasses. Oral cavity: Mucous membranes moist and pink. Dentition is intact. NECK: Shows anterior throat supple without palpable lymphadenopathy noted. Swallow reflex is symmetrical. CHEST: Shows normal with inspection. Breath sounds clear to auscultation bilaterally. HEART: Shows S1, S2 clear. No murmurs auscultated. ABDOMEN: Soft, nontender, nondistended. BACK: Shows spine grossly in the midline. Well-healed and well-bandaged area of spinal cord stimulator insertion. Tape was then taken down and bandages. She did have some apparent fecal staining from her depends undergarments on the inferior aspect of the bandages posteriorly. This was taken down and indeed that seem to be some stool contamination underneath the bandages. The sutures were cut under sterile prep and drape and spinal cord stimulator leads were removed with tips intact x 2 with some induration around the area of the insertion site bilaterally with each spinal cord stimulator lead without significant purulence or fluctuance, but raised and somewhat erythematous around the area of the stimulator leads and mildly tender with palpation, but only very mildly. The patient's wound sites were cleaned with sterile alcohol prep and sterile bandage was applied. Options were discussed with the patient and patient's spouse and we will have her follow up in approximately 3 days with a progress report at that time, but again not doing significantly well with the spinal cord stimulator temporary leads and the patient at this time is not interested in pursuing a permanent implant. We will also have the patient take Keflex 500 mg twice daily for the next 10 days as she did have some mild erythema and induration around the areas of the spinal cord stimulator lead insertions potentially from fecal contamination from the bandages over the week. The patient was given instruction as well as side effects to be aware of with the medication and again will follow up in about 3 days with a progress report at that time or sooner as necessary. ELLIS NEWMAN MD DR: LINDEN/nts JOB#: [id number] / [id number]
== END | disposition home or self-care (01) ==
LOC: PNCL 10:32
PROVIDERS: ATTEND Anesthesiology
DX: M51.16 Intervertebral disc disorders with radiculopathy, lumbar region (principal); R11.0 Nausea
CPT/HCPCS: G0463

== ENCOUNTER 2018-06-14 18:18 | Inpatient (IN) | payer MEDICARE ==
[~2018-06-14] VITALS: Ht 162.6 cm; Wt 43.7 kg
[2018-06-14] MEDS ORDERED: VANCOMYCIN PER PHARMACY MC ONE (19:45)
[2018-06-14] MEDS ORDERED: PIPERACILLIN/TAZOBACTAM 4.5 GM in IV NORMAL SALINE 100ML 100 ML IV ONE (20:00)
[2018-06-14] MEDS ORDERED: VANCOMYCIN 1GM IVPB FOR OMNI 250 ML IV ONE (20:30)
[2018-06-14] MEDS: IV NORMAL SALINE 1000ML BAG 1,000 ML IV SCH ×2 (20:50→22:18)
[2018-06-14 20:54] LABS: BASO # 0.1 x10^3/uL (0.0-0.2); BASO % 1 % (0-3); EOS % 0 % (0-3); HEMATOCRIT 45.4 % (36.0-47.0); HEMOGLOBIN 15.1 g/dL (12.0-15.5); LYMPH # 1.6 x10^3/uL (1.0-4.8); LYMPH % 15 % (24-48); MEAN CORPUSCULAR HEMOGLOBIN 30 pg (25-35); MEAN CORPUSCULAR HGB CONC 33 g/dL (31-37); MEAN CORPUSCULAR VOLUME 90 fL (79-100); MONO # 1.1 x10^3/uL (0.0-1.1); MONO % 10 % (0-9); NEUT # 8.2 x10^3uL (1.8-7.7); NEUT % 74 % (31-73); PLATELET COUNT 308 x10^3/uL (140-400); RED BLOOD COUNT 5.04 x10^6/uL (3.50-5.40); RED CELL DISTRIBUTION WIDTH 15.7 % (11.5-14.5)
[2018-06-14 21:04] LABS: BILIRUBIN,URINE MODERATE (NEG); CLARITY,URINE CLEAR; COLOR,URINE AMBER; NITRITE,URINE NEGATIVE (NEG); PH,URINE 6.5; PROTEIN,URINE 30 mg/dL (NEG-TRACE)
[2018-06-14 21:04] LABS: PROTHROMBIN TIME PATIENT 13.3 SEC (11.7-14.0)
[2018-06-14] MEDS: MORPHINE SULFATE 4 MG/ML VIAL. IV/SQ PRN ×2 (21:06→23:15)
[2018-06-14 21:07] LABS: CALCIUM 10.6 mg/dL (8.5-10.1); CREATININE 0.7 mg/dL (0.6-1.0); GFR 84.8; POTASSIUM 3.2 mmol/L (3.5-5.1)
[2018-06-14 21:10] LABS: HYALINE CASTS, URINE FEW /HPF; SQUAMOUS EPITHELIAL CELL,UR MOD /LPF
[2018-06-14 21:12] LABS: BACTERIA,URINE 0 /HPF (0-FEW)
[2018-06-14] MEDS ORDERED: CONTRAST GIVEN. MC PRN (21:15)
[2018-06-14] MEDS ORDERED: POTASSIUM CHLORIDE 20 MEQ TABLET.ER. PO ONE (21:15)
[2018-06-14] MEDS ORDERED: IOHEXOL 300 MG/ML 100ML VIAL. IV ONE (21:15)
[2018-06-14 21:17] LABS: ALBUMIN 3.7 g/dL (3.4-5.0); TOTAL BILIRUBIN 0.9 mg/dL (0.2-1.0); TOTAL PROTEIN 7.4 g/dL (6.4-8.2)
--- NOTE | 2018-06-14 22:44 | RAD ---
CT thoracic and lumbar spine exam with contact History:severe back pain and abscess, s/p temporary spine stimulator was placed and removed within one week Technique: Postcontrast CT imaging was performed of the thoracic and lumbar spine. Multiplanar reconstruction images are submitted. Exposure: One or more of the following individualized dose reduction techniques were utilized for this examination: 1. Automated exposure control 2. Adjustment of the mA and/or kV according to patient size 3. Use of iterative reconstruction technique. Comparison: MRI lumbar spine exam November 05, 2015 Thoracic spine: FINDINGS: Evaluation for spinal abscess is limited by CT. There are likely some nonspecific vessels along the surface of the more inferior thoracic cord. There is questionable tiny posterior epidural collection at the T11 level, greatest dimension about 0.2 to 0.3 cm AP if this is a real finding. Thoracic vertebral body AP alignment is maintained. There is very mild superior height loss of T12 anteriorly and also L1 superior L1 compression deformity as seen on previous lumbar spine MRI exam. Facet degenerative change contributes to fairly severe narrowing of the left T7-8 neural foramen, lesser degree of narrowing such as on the left at T2-3 and on the right at T1-T2 and T7-T8. There is hypodense lesion of the right aspect of the isthmus of the thyroid gland about 1.3 cm. There are some other smaller hypodense foci of the bilateral thyroid gland. There is emphysema of the visualized lungs. IMPRESSION: 1. There are nonspecific vessels along the surface of the more inferior thoracic cord. There could be a very small posterior epidural fluid collection at the T11-12 level otherwise difficult to characterize, tiny epidural fluid collection/abscess not excluded. Findings would be better characterized with MRI if patient is able to perform. 2. There is old compression deformity of L1 and to lesser degree of T12. 3. There is more significant narrowing of the left T7-8 neural foramen by facet degenerative change. 4. There is emphysema. 5. There are hypodense thyroid lesions, largest of the right isthmus, better characterized with nonemergent ultrasound. Lumbar spine: FINDINGS: There is again old L1 compression deformity. There may be dural enhancement more eccentric to the right lateral recess at the L3-4 level, also possible bulge/protrusion at the L3-4 level more eccentric to the right lateral recess, difficult to further characterize as no precontrast images available. There is at least mild narrowing of the far right lateral recess at L3-4. No acute lumbar spine fracture is identified. There is facet degenerative change greater inferiorly of the lumbar spine. There is atherosclerotic calcification of the abdominal aorta as well as iliac arteries. Impression: 1. There is possible nonspecific dural enhancement more eccentric to the right lateral recess at L3-4 level although difficult to characterize without any precontrast images, would be more accurately characterized with MRI if patient is able to perform. There is at least mild narrowing of the right lateral recess at L3-4. 3. There is old L1 compression deformity. Electronically signed by: Júnior Valentino MD (06/14/2018 10:41 PM) [facility]
[2018-06-15] VITALS (24 sets, daily range): BP systolic 103–175; BP diastolic 63–92
[2018-06-15] MEDS ORDERED: diazePAM 5 MG TABLET PO ONE (00:15)
[2018-06-15] MEDS ORDERED: MORPHINE SULFATE 4 MG/ML VIAL. IV ONE (00:15)
--- NOTE | 2018-06-15 01:17 | PHYS DOC ---
Past Medical History Past Medical History: Anxiety, COPD, Depression, Other Additional Past Medical Histor: Neuropathic pain,Cervical Myelopathy Balance disturbance,SPINAL STENOSIS Past Surgical History: Hysterectomy Additional Past Surgical Histo: Spinal surgery, left shoulder repair,L HIP X 3 Alcohol Use: None Drug Use: None Adult General Chief Complaint Chief Complaint: LOWER BACK PAIN OR INJURY HPI HPI Patient is a 62 year old female with history of anxiety, depression, COPD, who presents to the ED today complaining of a possible abscess to the thoracic spine. Patient states she had a spinal cord stimulator placed on June 06, [address] [facility], patient states she felt they spinal stimulator was not giving her any relief for her chronic back pain, she states she went back to the clinic yesterday and they took the stimulator. She states they noted the area was red and were concerned it could be getting infected and started on cephalexin. Patient presents today stating she is feeling more pain and warmth to the area and is concerned she could be developing an abscess. Denies any fever, denies any nausea vomiting. She is able to move her extremities with no difficulties. Denies any loss of bowel bladder function. Denies any new numbness or tingling to bilateral lower extremities Review of Systems Review of Systems Constitutional: Denies fever or chills [] Eyes: Denies change in visual acuity, redness, or eye pain [] HENT: Denies nasal congestion or sore throat [] Respiratory: Denies cough or shortness of breath [] Cardiovascular: No additional information not addressed in HPI [] GI: Denies abdominal pain, nausea, vomiting, bloody stools or diarrhea [] : Denies dysuria or hematuria [] Musculoskeletal: Reports thoracic infection Integument: Denies rash or skin lesions [] Neurologic: Denies headache, focal weakness or sensory changes [] All other systems were reviewed and found to be within normal limits, except as documented in this note. Current Medications Current Medications Current Medications Medications (Trade) Dose Ordered Sig/Jeanine Start Time Stop Time Status Last Admin Dose Admin Diazepam (Valium) 5 mg 1X ONCE 06/15/18 00:15 06/15/18 00:16 DC Info (CONTRAST GIVEN -- Rx MONITORING) 1 each PRN DAILY PRN 06/14/18 21:15 06/16/18 21:14 Iohexol (Omnipaque 300 Mg/ml) 75 ml 1X ONCE 06/14/18 21:15 06/14/18 21:16 DC 06/14/18 21:15 75 ML Morphine Sulfate (Morphine Sulfate) 4 mg 1X ONCE 06/15/18 00:15 06/15/18 00:16 DC Piperacillin Sod/ Tazobactam Sod 4.5 gm/Sodium Chloride 100 ml @ 200 mls/hr 1X ONCE 06/14/18 20:00 06/14/18 20:29 DC 06/14/18 21:06 200 MLS/HR Potassium Chloride (Klor-Con) 40 meq 1X ONCE 06/14/18 21:15 06/14/18 21:16 DC 06/14/18 22:18 40 MEQ Sodium Chloride 1,000 ml @ 1,200 mls/hr Q50M 06/14/18 20:00 06/14/18 20:59 DC 06/14/18 22:18 1,200 MLS/HR Vancomycin HCl 250 ml @ 250 mls/hr 1X ONCE 06/14/18 20:30 06/14/18 21:29 DC 06/14/18 22:19 250 MLS/HR Vancomycin HCl (Vanco Per Pharmacy) 1 each 1X ONCE 06/14/18 19:45 06/14/18 19:46 DC Allergies Allergies Allergies Coded Allergies Type Severity Reaction Last Updated Verified No Known Drug Allergies 08/02/16 No Physical Exam Physical Exam Constitutional: Well developed, well nourished, no acute distress, non-toxic appearance. [] HENT: Normocephalic, atraumatic, bilateral external ears normal, oropharynx moist, no oral exudates, nose normal. [] Eyes: PERRLA, EOMI, conjunctiva normal, no discharge. [] Neck: Normal range of motion, no tenderness, supple, no stridor. [] Cardiovascular:Heart rate regular rhythm, no murmur [] Lungs & Thorax: Bilateral breath sounds clear to auscultation [] Abdomen: Bowel sounds normal, soft, no tenderness, no masses, no pulsatile masses. [] Skin: Warm, dry, no erythema, no rash. [] Back: Thoracic spine with 2 open wounds 1 laying directly on the spine, is approximately 0.3 x 0.3 cm, there is another one the same side on the left side of this wound. Both of them are surrounded with approximately 4 cm of cellulitis. There is yellow drainage from the area. The area feels warm and is tender to touch. No CVA tenderness. [] Extremities: No tenderness, no cyanosis, no clubbing, ROM intact, no edema. [] Neurologic: Alert and oriented X 3, normal motor function, normal sensory function, no focal deficits noted. [] Psychologic: Affect normal, judgement normal, mood normal. [] Current Patient Data Vital Signs Vital Signs Date Time Temp Pulse Resp B/P (MAP) Pulse Ox O2 Delivery O2 Flow Rate FiO2 06/14/18 23:17 71 145/72 (96) 98 Room Air 06/14/18 19:00 98.9 16 98.9 Lab Values Laboratory Tests Test 06/14/18 20:40 06/14/18 20:55 White Blood Count 11.0 x10^3/uL (4.0-11.0) Red Blood Count 5.04 x10^6/uL (3.50-5.40) Hemoglobin 15.1 g/dL (12.0-15.5) Hematocrit 45.4 % (36.0-47.0) Mean Corpuscular Volume 90 fL (79-100) Mean Corpuscular Hemoglobin 30 pg (25-35) Mean Corpuscular Hemoglobin Concent 33 g/dL (31-37) Red Cell Distribution Width 15.7 % (11.5-14.5) H Platelet Count 308 x10^3/uL (140-400) Neutrophils (%) (Auto) 74 % (31-73) H Lymphocytes (%) (Auto) 15 % (24-48) L Monocytes (%) (Auto) 10 % (0-9) H Eosinophils (%) (Auto) 0 % (0-3) Basophils (%) (Auto) 1 % (0-3) Neutrophils # (Auto) 8.2 x10^3uL (1.8-7.7) H Lymphocytes # (Auto) 1.6 x10^3/uL (1.0-4.8) Monocytes # (Auto) 1.1 x10^3/uL (0.0-1.1) Eosinophils # (Auto) 0.0 x10^3/uL (0.0-0.7) Basophils # (Auto) 0.1 x10^3/uL (0.0-0.2) Prothrombin Time 13.3 SEC (11.7-14.0) Prothrombin Time INR 1.0 (0.8-1.1) PTT 39 SEC (24-38) H Sodium Level 140 mmol/L (136-145) Potassium Level 3.2 mmol/L (3.5-5.1) L Chloride Level 97 mmol/L (98-107) L Carbon Dioxide Level 30 mmol/L (21-32) Anion Gap 13 (6-14) Blood Urea Nitrogen 23 mg/dL (7-20) H Creatinine 0.7 mg/dL (0.6-1.0) Estimated GFR (Cockcroft-Gault) 84.8 BUN/Creatinine Ratio 33 (6-20) H Glucose Level 107 mg/dL (70-99) H Lactic Acid Level 1.1 mmol/L (0.4-2.0) Calcium Level 10.6 mg/dL (8.5-10.1) H Total Bilirubin 0.9 mg/dL (0.2-1.0) Aspartate Amino Transferase (AST) 26 U/L (15-37) Alanine Aminotransferase (ALT) 25 U/L (14-59) Alkaline Phosphatase 110 U/L (46-116) Total Protein 7.4 g/dL (6.4-8.2) Albumin 3.7 g/dL (3.4-5.0) Albumin/Globulin Ratio 1.0 (1.0-1.7) Procalcitonin < 0.10 ng/mL (0.00-0.10) Urine Collection Type U cath Urine Color Freda Urine Clarity Clear Urine pH 6.5 Urine Specific [place] 1.020 Urine Protein 30 mg/dL (NEG-TRACE) Urine Glucose (UA) Negative mg/dL (NEG) Urine Ketones (Stick) 40 mg/dL (NEG) Urine Blood Negative (NEG) Urine Nitrite Negative (NEG) Urine Bilirubin Moderate (NEG) Urine Urobilinogen Dipstick 1.0 mg/dL (0.2 mg/dL) Urine Leukocyte Esterase Trace (NEG) Urine RBC 11-20 /HPF (0-2) Urine WBC 1-4 /HPF (0-4) Urine Squamous Epithelial Cells Mod /LPF Urine Transitional Epithelial Cells Mod /LPF Urine Bacteria 0 /HPF (0-FEW) Urine Hyaline Casts Few /HPF Urine Mucus Marked /LPF Laboratory Tests 3/20/19 20:40 Laboratory Tests 06/14/18 20:40 EKG EKG [] Radiology/Procedures Radiology/Procedures []PROCEDURE: CT LUMBAR SPINE W/CONTRAST CT thoracic and lumbar spine exam with contact History:severe back pain and abscess, s/p temporary spine stimulator was placed and removed within one week Technique: Postcontrast CT imaging was performed of the thoracic and lumbar spine. Multiplanar reconstruction images are submitted. Exposure: One or more of the following individualized dose reduction techniques were utilized for this examination: 1. Automated exposure control 2. Adjustment of the mA and/or kV according to patient size 3. Use of iterative reconstruction technique. Comparison: MRI lumbar spine exam November 05, 2015 Thoracic spine: FINDINGS: Evaluation for spinal abscess is limited by CT. There are likely some nonspecific vessels along the surface of the more inferior thoracic cord. There is questionable tiny posterior epidural collection at the T11 level, greatest dimension about 0.2 to 0.3 cm AP if this is a real finding. Thoracic vertebral body AP alignment is maintained. There is very mild superior height loss of T12 anteriorly and also L1 superior L1 compression deformity as seen on previous lumbar spine MRI exam. Facet degenerative change contributes to fairly severe narrowing of the left T7-8 neural foramen, lesser degree of narrowing such as on the left at T2-3 and on the right at T1-T2 and T7-T8. There is hypodense lesion of the right aspect of the isthmus of the thyroid gland about 1.3 cm. There are some other smaller hypodense foci of the bilateral thyroid gland. There is emphysema of the visualized lungs. IMPRESSION: 1. There are nonspecific vessels along the surface of the more inferior thoracic cord. There could be a very small posterior epidural fluid collection at the T11-12 level otherwise difficult to characterize, tiny epidural fluid collection/abscess not excluded. Findings would be better characterized with MRI if patient is able to perform. 2. There is old compression deformity of L1 and to lesser degree of T12. 3. There is more significant narrowing of the left T7-8 neural foramen by facet degenerative change. 4. There is emphysema. 5. There are hypodense thyroid lesions, largest of the right isthmus, better characterized with nonemergent ultrasound. Lumbar spine: FINDINGS: There is again old L1 compression deformity. There may be dural enhancement more eccentric to the right lateral recess at the L3-4 level, also possible bulge/protrusion at the L3-4 level more eccentric to the right lateral recess, difficult to further characterize as no precontrast images available. There is at least mild narrowing of the far right lateral recess at L3-4. No acute lumbar spine fracture is identified. There is facet degenerative change greater inferiorly of the lumbar spine. There is atherosclerotic calcification of the abdominal aorta as well as iliac arteries. Impression: 1. There is possible nonspecific dural enhancement more eccentric to the right lateral recess at L3-4 level although difficult to characterize without any precontrast images, would be more accurately characterized with MRI if patient is able to perform. There is at least mild narrowing of the right lateral recess at L3-4. 3. There is old L1 compression deformity. Electronically signed by: Carson Cee MD (06/14/2018 10:41 PM) [facility] DICTATED and SIGNED BY: CARSON CEE MD DATE: 06/14/182240 Course & Med Decision Making Course & Med Decision Making Pertinent Labs and Imaging studies reviewed. (See chart for details) This is a 62-year-old female patient presenting to the ED today with possible abscess to the thoracic spine, she had a spinal cord stimulator placed on June 06, 2018 and removed yesterday, the pain clinic doctor noted the area was starting to get infected and placed patient on cephalexin. Patient was started on sepsis protocol on arrival to the ED. Temperature 98.8 on arrival, blood pressure 123/80, heart rate 98, respirations 16 on room air. O2 sats 98% on room air. CBC with a normal WBC neutrophils 8.2%. Lactic is normal. CMP with potassium of 3.2, patient was given oral potassium replacement. Wound cultures were obtained. Patient was already started on Zosyn and vancomycin on arrival. CT of the thoracic spine FINDINGS: There is again old L1 compression deformity. There may be dural enhancement more eccentric to the right lateral recess at the L3-4 level, also possible bulge/protrusion at the L3-4 level more eccentric to the right lateral recess, difficult to further characterize as no precontrast images available. There is at least mild narrowing of the far right lateral recess at L3-4. No acute lumbar spine fracture is identified. There is facet degenerative change greater inferiorly of the lumbar spine. Initially consulted with Dr. Hernandez for admission then found out later this patient belongs to Dr. Hernandez, spoke to Dr. pruitt who accepted patient for admission. Consulted with Kaycee OLIVERA for neurosurgery, she requested we consult infectious disease. Put patient in ICU. Informed nursing staff to do neuro checks every hour. She also requested we order an MRI of the thoracic spine with and without contrast and it has to be done stat because Dr. Saab was concerned about spinal cord injury, she also requested we consult infectious disease Spoke with Dr. Long infectious disease who requested we don't give patient any antibiotics and ensure we obtain wound cultures and blood cultures. Patient was admitted in stable condition. Dragon Disclaimer Dragon Disclaimer This electronic medical record was generated, in whole or in part, using a voice recognition dictation system. Departure Departure Impression: Primary Impression: Thoracic abscess Disposition: ADMITTED INPATIENT Condition: STABLE Referrals: WILLOW HERNANDEZ MD (PCP) PORFIRIO ORTIZ APRN Jun 15, 2018 01:17
[2018-06-15] MEDS ORDERED: IV NORMAL SALINE 1000ML BAG 1,000 ML IV ONE (01:30)
[2018-06-15] MEDS ORDERED: ONDANSETRON PF 4 MG/2 ML VIAL. IV PRN (01:30)
[2018-06-15] MEDS ORDERED: MORPHINE SULFATE 4 MG/ML VIAL. IV PRN (01:30)
[2018-06-15] MEDS ORDERED: GADOBUTROL 7.5 MMOL/7.5 ML VIAL IV ONE (02:00)
--- NOTE | 2018-06-15 02:30 | NUR ---
Patient arrived to room 104 via gurney accompanied by ED RN. Patient hooked up to ICU monitors. Patient A&Ox4/talkative, febrile, SR on monitor, complaining of 10/10 pain in back, IV patent and fluids started. Abcess on back photographed for chart--oozing pus. Patient attempted to use bedpan but was unsuccessful. Patient oriented to unit routines, activity (BR), diet (NPO), call light, bed controls, and tv controls. Will continue to monitor. Reassessments of NS, vanc, zosyn, and morphine not completed by ED RN--documented as "not done" by this RN.
--- NOTE | 2018-06-15 02:44 | RAD ---
INDICATION: LOWER THORACIC ABCESS, HX OF SPINAL STIMULATOR IMLANT WITH REMOVAL 2 DAYS AGO, INCREASED BACK PAIN, PRIOR CT, 4ML GADAVIST COMPARISON: CT from June 14, 2018 TECHNIQUE: Axial CT images obtained through the thoracic spine with and without intravenous contrast. One or more of the following individualized dose reduction techniques were utilized for this examination: 1. Automated exposure control; 2. Adjustment of the mA and/or kV according to patient size; 3. Use of iterative reconstruction technique. FINDINGS: At the partially visualized cervical spine there is suspicion of central canal stenosis with disc protrusion at C3-4 but not formally evaluated. There may be some high T2 signal within the cord at this region but not well evaluated. Motion degrades some of the sequences. There is some enhancement of the soft tissues within the central canal posteriorly within the mid to lower thoracic spine. This region measures up to approximately 7 mm anterior to posterior with craniocaudal extent of approximately 10-11 cm. This region appears predominantly high T2 signal. There is some enhancement also seen within the adjacent soft tissues as well. IMPRESSION: 1. Along the posterior aspect of the central canal there is a region of enhancement identified within the mid to lower thoracic region which appears predominantly high T2 signal. This can be seen with some inflammatory changes postoperatively which could be reactive to the patient's regions recent surgery with sterile edema and inflammation to the region but infectious causes are within the differential given this finding and it may be helpful to obtain a follow-up examination to ensure that there is no increase in this finding given that infectious causes are within the differential. This does not appear very organized at this point however infectious etiology with early phlegmon is not excluded. 2. At the partially visualized cervical spine on the chain offbearer images there is apparent narrowing of central canal with questionable high T2 signal within the spinal cord which could be artifactual but a region of gliosis or edema is not excluded. Electronically signed by: Juan Hernandez MD (06/15/2018 2:41 AM) [facility]
--- NOTE | 2018-06-15 08:01 | PDOC ---
Infectious Disease Note Vital Sign Vital Signs Vital Signs Date Time Temp Pulse Resp B/P (MAP) Pulse Ox O2 Delivery O2 Flow Rate FiO2 06/15/18 06:00 67 20 163/87 (112) 94 Room Air 06/15/18 02:15 100.4 100.4 Labs Lab Laboratory Tests Test 06/14/18 20:40 06/14/18 20:55 White Blood Count 11.0 x10^3/uL (4.0-11.0) Red Blood Count 5.04 x10^6/uL (3.50-5.40) Hemoglobin 15.1 g/dL (12.0-15.5) Hematocrit 45.4 % (36.0-47.0) Mean Corpuscular Volume 90 fL (79-100) Mean Corpuscular Hemoglobin 30 pg (25-35) Mean Corpuscular Hemoglobin Concent 33 g/dL (31-37) Red Cell Distribution Width 15.7 % (11.5-14.5) Platelet Count 308 x10^3/uL (140-400) Neutrophils (%) (Auto) 74 % (31-73) Lymphocytes (%) (Auto) 15 % (24-48) Monocytes (%) (Auto) 10 % (0-9) Eosinophils (%) (Auto) 0 % (0-3) Basophils (%) (Auto) 1 % (0-3) Neutrophils # (Auto) 8.2 x10^3uL (1.8-7.7) Lymphocytes # (Auto) 1.6 x10^3/uL (1.0-4.8) Monocytes # (Auto) 1.1 x10^3/uL (0.0-1.1) Eosinophils # (Auto) 0.0 x10^3/uL (0.0-0.7) Basophils # (Auto) 0.1 x10^3/uL (0.0-0.2) Prothrombin Time 13.3 SEC (11.7-14.0) Prothromb Time International Ratio 1.0 (0.8-1.1) Activated Partial Thromboplast Time 39 SEC (24-38) Sodium Level 140 mmol/L (136-145) Potassium Level 3.2 mmol/L (3.5-5.1) Chloride Level 97 mmol/L (98-107) Carbon Dioxide Level 30 mmol/L (21-32) Anion Gap 13 (6-14) Blood Urea Nitrogen 23 mg/dL (7-20) Creatinine 0.7 mg/dL (0.6-1.0) Estimated GFR (Cockcroft-Gault) 84.8 BUN/Creatinine Ratio 33 (6-20) Glucose Level 107 mg/dL (70-99) Lactic Acid Level 1.1 mmol/L (0.4-2.0) Calcium Level 10.6 mg/dL (8.5-10.1) Total Bilirubin 0.9 mg/dL (0.2-1.0) Aspartate Amino Transf (AST/SGOT) 26 U/L (15-37) Alanine Aminotransferase (ALT/SGPT) 25 U/L (14-59) Alkaline Phosphatase 110 U/L (46-116) Total Protein 7.4 g/dL (6.4-8.2) Albumin 3.7 g/dL (3.4-5.0) Albumin/Globulin Ratio 1.0 (1.0-1.7) Procalcitonin < 0.10 ng/mL (0.00-0.10) Urine Collection Type U cath Urine Color Freda Urine Clarity Clear Urine pH 6.5 Urine Specific [place] 1.020 Urine Protein 30 mg/dL (NEG-TRACE) Urine Glucose (UA) Negative mg/dL (NEG) Urine Ketones (Stick) 40 mg/dL (NEG) Urine Blood Negative (NEG) Urine Nitrite Negative (NEG) Urine Bilirubin Moderate (NEG) Urine Urobilinogen Dipstick 1.0 mg/dL (0.2 mg/dL) Urine Leukocyte Esterase Trace (NEG) Urine RBC 11-20 /HPF (0-2) Urine WBC 1-4 /HPF (0-4) Urine Squamous Epithelial Cells Mod /LPF Urine Transitional Epithelial Cells Mod /LPF Urine Bacteria 0 /HPF (0-FEW) Urine Hyaline Casts Few /HPF Urine Mucus Marked /LPF Objective Assessment Spinal cord stimulator infection s/p removal on 06/13/18 Fever N/V Leukocytosis Spinal stenosis COPD Plan Plan of Care vanc and zosyn check cultures Dr Salazar input pending BRANT VERNON MD Jun 15, 2018 08:01
[2018-06-15] MEDS ORDERED: VANCOMYCIN 1 GM in IV NORMAL SALINE 250ML 250 ML IV SCH (08:15)
--- NOTE | 2018-06-15 08:17 | PDOC1 ---
H & P. HPI: Ms. Michele is a 62-year-old female with past medical history of COPD, degenerative lumbar spinal stenosis, nicotine dependence, depression, anxiety, peripheral artery disease, hypertension, osteoporosis, and chronic pain disorder. She presented to the emergency room yesterday evening for concern of a possible thoracic spine infection/abscess. She reportedly had a spinal stimulator placed on June 06, 2018 and was seen yesterday in clinic with Dr. Robb Sarabia and noted to have increased pain, redness around the placement site and concern for possible infection. Stability was removed and the patient was placed on Keflex. She presented to the emergency room for increased pain. Imaging is concerning for possible thoracic spine abscess. Labs are significant for normal white blood cell count with moderate left shift, mild hypokalemia that has been replaced orally, normal lactic acid and normal peripheral calcitonin. She was pancultured including wound site cultures and was given a dose of Vanco and Zosyn. Infectious disease and neurosurgery were consulted and the patient was admitted to the ICU for close monitoring with neuro checks every hour. ROS: Constitutional: Admits fever, fatigue, chills HEENT: Denies sore throat, vision changes Cardio: Denies chest pain, edema Pulmonary: Admits some shortness of breath at baseline, denies cough, wheezing GI: Denies nausea, vomiting MSK: Admits back pain : Denies dysuria, frequency, urgency, incontinence Skin: Purulent drainage from spinal stimulator placement site with surrounding redness Neuro: Denies weakness, paresthesias, change in bowel/bladder function PMH: As above. FAMILY HX: Father and mother . Father had emphysema. Mother had cancer, unknown primary source. Otherwise noncontributory. SOCIAL HX: 1/2-1 ppd smoker for many years. No significant alcohol or drug use. SURGICAL HX: Reports a cervical fusion May 2004 as well as surgery to C6 and C7 in September 2006. She is also had a R hip replacement, tonsillectomy, hysterectomy with bilateral salpingo-oophorectomy. MEDS: Reviewed and reconciled ALLERGIES: Reviewed PE: Alert, oriented, no acute distress EOMI, sclera non-icteric Neck supple RRR Decreased to auscultation, but otherwise CTAB, no wheezes, crackles or rhonchi ~3-4 cm of erythema and swelling noted on the lower thoracic spine with purulent drainage from two puncture sites Grossly normal sensation/motor of lower extremities No edema, cyanosis. Calm, cooperative, mood/affect within normal limits ASSESSMENT & PLAN: Sepsis secondary to cellulitis/concern for thoracic spine abscess Chronic back pain and degenerative lumbar spinal stenosis Mild hypercalcemia, worked up previously with normal PTH, improved from previous COPD Nicotine dependence Peripheral artery disease Hypertension Osteoporosis Depression Anxiety Cachexia Neurosurgery and infectious disease have been consulted Abx per ID Await cultures Possible intervention pending neurosurg DYLLAN Roy MD Jun 15, 2018 08:17
[2018-06-15] MEDS: ALBUTEROL SULFATE 2.5 MG/3 ML NEBU. NEB SCH ×3 (08:30→15:32)
[2018-06-15] MEDS: amLODIPine BESYLATE 5 MG TABLET PO SCH (09:07)
[2018-06-15] MEDS: SERTRALINE 50 MG TABLET. PO SCH (09:07)
[2018-06-15] MEDS: GABAPENTIN 300 MG CAPSULE. PO SCH ×3 (09:08→20:30)
[2018-06-15] MEDS: FLUTICASONE 50MCG/NASAL SPRAY 16GM BOTTLE. NS SCH (09:08)
[2018-06-15] MEDS: PIPERACILLIN/TAZOBACTAM 3.375 GM in IV NORMAL SALINE 50ML 50 ML IV SCH ×4 (09:15→23:39)
[2018-06-15] MEDS: VANCOMYCIN 750 MG in IV NORMAL SALINE 250ML 250 ML IV SCH ×2 (09:15→21:32)
[2018-06-15] MEDS: diazePAM 5 MG TABLET PO PRN (09:47)
[2018-06-15] MEDS: MORPHINE SULFATE 4 MG/ML VIAL. IV PRN ×5 (09:48→23:40)
--- NOTE | 2018-06-15 09:59 | PDOC ---
Provider Note Provider Note Patient seen and examined in ICU recent SCS trial c/o thoracic back pain neuro intact Thoracic MRI with some enhancement of the soft tissues within the central canal posteriorly within the mid to lower thoracic spine. This region measures up to approximately 7 mm anterior to posterior with craniocaudal extent of approximately 10-11 cm. This region appears predominantly high T2 signal. There is some enhancement also seen within the adjacent soft tissues as well. keep in ICU today with neuro checks ID consulted D/W RN D/W Dr. Sarabia ok to be out of bed with PT will follow full consult to follow LUCILLE ROMERO MD Jun 15, 2018 09:58
[2018-06-15] MEDS ORDERED: ACETAMINOPHEN 325 MG TABLET. PO PRN (10:30)
--- NOTE | 2018-06-15 11:53 | CONS ---
DATE OF CONSULTATION: 06/15/2018 REQUESTING PHYSICIAN: Dr. Hernandez. REASON FOR CONSULTATION: Spinal stimulator infection. HISTORY OF PRESENT ILLNESS: This is a 62-year-old female with multiple surgeries and multiple problems who has been disabled for quite some time, had a spinal stimulator put in about 10 days ago and then she had severe pain at the site and says stimulator was taken out on . The patient had stimulator in for 1 week. The patient then started having severe weakness, unable to stand, some nausea, vomiting. Hence, the brought her in and the patient was admitted. The patient had extensive CAT scan and MRI done. The patient had fever and the CAT scan and MRI showed an infection. The patient has a pocket infection with the purulence coming out. All the wires and the stimulator has been removed now as my understanding. The patient was given vancomycin and Zosyn in the ER. The patient is in the ICU now, she is feeling okay. Denies any nausea, vomiting. Denies any chest pain, shortness of breath, abdominal pain, urinary symptoms or bowel symptoms. Denies any headache or visual symptoms. PAST MEDICAL HISTORY: Positive for multiple hip surgeries done after the fracture, spinal stenosis, neuropathy pain, cervical myelopathy, COPD, anxiety disorder, depression, spinal surgery done, shoulder surgery done. SOCIAL HISTORY: Negative for alcohol use or drug use. The patient continues to smoke. ALLERGIES: No known drug allergies. CURRENT MEDICATIONS: Reviewed. REVIEW OF SYSTEMS: As per HPI. All other systems reviewed are negative. PHYSICAL EXAMINATION: GENERAL: Alert, oriented female, not in distress. VITAL SIGNS: Stable with T-max 100.4. HEENT: NAD. NECK: Supple, no JVP, no lymphadenopathy. LUNGS: Clear. HEART: S1, S2 regular. ABDOMEN: Benign. EXTREMITIES: No edema, cyanosis. SKIN: Unremarkable. The patient's backside, patient's mid thoracic area besides the spine, where the pocket is draining purulent stuff. Rest of the skin examination is unremarkable. NEUROLOGIC: The patient is neurologically alert, awake, able to move all the extremities. No focal deficit. LABORATORY DATA: White count is 11,000. BUN and creatinine is 23 and 0.7. Lactic acid 1.1. Urinalysis unremarkable for infection. Thoracic spine, lumbar spine CT and thoracic spine MRI reviewed, appears to have some fluid collection and infection/abscess, although probably very small at around T11, epidural fluid collection at T11-T12 level. IMPRESSION: 1. Spinal cord stimulator infection, status post removal. 2. Small T11-T12 epidural abscess. 3. Fever. 4. Leukocytosis. 5. Chronic obstructive pulmonary disease. 6. Spinal stenosis. RECOMMENDATIONS: Blood cultures have been taken. Wound culture has been taken. We will use vancomycin and Zosyn, supportive care. We will check the cultures and neurosurgery input is pending. Supportive care and we will continue to follow. Thank you very much, Dr. Hernandez, for giving me the opportunity to participate in this patient's care. BRANT VERNON MD DR: ABIGAIL/vianca JOB#: [id number] / [id number]
[2018-06-15] MEDS ORDERED: NON FORMULARY ITEM (Albuterol Sulfate (Ventolin Hfa Inhaler) 2 PUFF) INH SCH (12:00)
--- NOTE | 2018-06-15 12:47 | NUR ---
Wound Care Note Pt has abscess on back along spine. WC team had no Aquacel AG on hand and ICU has none on unit. WC team dressed wound with ABD and covered with hypafix. WC team asked floor nurse to dress with Aquacel Ag (and cover with foam) once [facility] delivers to unit. WC called down to ICU to ensure AG has arrived. RN states that they did get it. Wound can be dressed with Aquacel AG and covered with a foam. No other wounds found in head to toe assessment. [place] recommendation paper filled out and left in pt's room.
--- NOTE | 2018-06-15 13:06 | NUR ---
SS following up with discharge planning. SS reviewed pt chart. Pt is from home with spouse and is currently on room air. No discharge needs noted at this time. SS will continue to follow for pending discharge needs.
--- NOTE | 2018-06-15 14:10 | NUR ---
Pharmacy Vancomycin Dosing Note S:Consulted to monitor and dose vancomycin started 06/14/18. O:BERTHA ZUÑIGA is a 62 year old F with a thoracic epidural abscess. Height: 5 feet, 4 inches Weight: 43.2 kg Dosing Weight: Actual Other Antibiotics: ZOSYN 3.375G IV Q6HRS LABS: Last BUN: 23 Last Creatinine: 0.7 Creatinine Clearance: 56 mL/min Last WBC: 11 Tmax (past 24 hours): 102 Microbiology: BLOOD, URINE, ABSCESS CX PENDING I/O: 1550/800 A: Patient requires vancomycin for an epidural abscess, aim for higher trough goal of 15-20 mcg/ml. Patient's SCr is 0.7 with an eCrCl of 56 ml/min. Patient receivine a loading dose of vancomycin 1000 mg IV x 1 dose in the ER. Due to higher trough goal, will initiate patient on q12hr dosing. P: 1. Initiate Vancomycin 750 mg IV q12h 2. Follow up Trough level on 06/16/18 at 0930 3. Pharmacy will continue to monitor, follow and adjust therapy as needed. [facility], 06/15/18 0587
--- NOTE | 2018-06-15 14:22 | PDOC ---
SUBJECTIVE Subjective back pain OBJECTIVE Objective 62 yo female c/o/mid low back pain seen and examined in ICU recent SCS trial c/o back pain neuro intact Thoracic MRI with some enhancement of the soft tissues within the central canal posteriorly within the mid to lower thoracic spine. There is some enhancement also seen within the adjacent soft tissues as well. Vital Signs Vital Signs Date Time Temp Pulse Resp B/P (MAP) Pulse Ox O2 Delivery O2 Flow Rate FiO2 06/15/18 14:12 18 93 Room Air 06/15/18 13:00 94 18 151/80 (103) 93 Room Air 06/15/18 12:00 Room Air 06/15/18 12:00 75 18 137/77 (97) 96 Room Air 06/15/18 11:00 72 18 137/78 (97) 92 Room Air 06/15/18 10:20 16 94 Room Air 06/15/18 10:00 102.0 88 18 132/81 (98) 94 Room Air 102.0 06/15/18 09:48 16 94 Room Air 06/15/18 09:07 81 170/84 06/15/18 09:00 83 16 175/88 (117) 94 Room Air 06/15/18 08:00 82 20 172/88 (116) 95 Room Air 06/15/18 07:50 Room Air 06/15/18 07:00 100.8 81 18 170/84 (112) 94 Room Air 100.8 06/15/18 06:00 67 20 163/87 (112) 94 Room Air 06/15/18 05:00 66 26 157/81 (106) 95 Room Air 06/15/18 04:00 64 22 157/78 (104) 92 Room Air 06/15/18 03:00 60 20 144/74 (97) 97 Room Air 06/15/18 02:45 58 20 146/77 (100) 96 Room Air 06/15/18 02:30 66 18 123/90 (101) 98 Room Air 06/15/18 02:30 Room Air 06/15/18 02:15 100.4 70 18 165/92 (116) 97 Room Air 100.4 06/15/18 00:47 70 138/88 (105) Room Air 06/15/18 00:17 69 142/81 (101) Room Air 06/14/18 23:47 70 138/78 (98) Room Air 06/14/18 23:17 71 145/72 (96) 98 Room Air 06/14/18 23:15 97 Room Air 06/14/18 22:47 71 166/84 (111) 97 Room Air 06/14/18 22:17 89 114/75 (88) 98 Room Air 06/14/18 21:38 77 122/78 (93) Room Air 06/14/18 21:13 86 123/76 (92) 98 Room Air 06/14/18 21:06 Room Air 06/14/18 20:38 83 123/83 (96) 97 Room Air 06/14/18 20:08 94 114/76 (89) 94 Room Air 06/14/18 19:38 92 119/70 (86) 95 Room Air 06/14/18 19:10 98 123/80 (94) Room Air 06/14/18 19:00 98.9 98 16 123/80 (94) 98 Room Air 98.9 I & O Intake and Output 06/15/18 07:00 Intake Total 1550 ml Output Total 800 ml Balance 750 ml IV Total 1550 ml Output Urine Total 800 ml ASSESSMENT/PLAN Assessment/Plan Post temporary SCS leads removal and infection Neurologically intact, currently afebrile Appreciate Dr. Lnog, and Dr. Saab input and expertise COMMENT Lab Laboratory Tests Test 06/14/18 20:40 06/14/18 20:55 White Blood Count 11.0 x10^3/uL (4.0-11.0) Red Blood Count 5.04 x10^6/uL (3.50-5.40) Hemoglobin 15.1 g/dL (12.0-15.5) Hematocrit 45.4 % (36.0-47.0) Mean Corpuscular Volume 90 fL (79-100) Mean Corpuscular Hemoglobin 30 pg (25-35) Mean Corpuscular Hemoglobin Concent 33 g/dL (31-37) Red Cell Distribution Width 15.7 % (11.5-14.5) Platelet Count 308 x10^3/uL (140-400) Neutrophils (%) (Auto) 74 % (31-73) Lymphocytes (%) (Auto) 15 % (24-48) Monocytes (%) (Auto) 10 % (0-9) Eosinophils (%) (Auto) 0 % (0-3) Basophils (%) (Auto) 1 % (0-3) Neutrophils # (Auto) 8.2 x10^3uL (1.8-7.7) Lymphocytes # (Auto) 1.6 x10^3/uL (1.0-4.8) Monocytes # (Auto) 1.1 x10^3/uL (0.0-1.1) Eosinophils # (Auto) 0.0 x10^3/uL (0.0-0.7) Basophils # (Auto) 0.1 x10^3/uL (0.0-0.2) Prothrombin Time 13.3 SEC (11.7-14.0) Prothromb Time International Ratio 1.0 (0.8-1.1) Activated Partial Thromboplast Time 39 SEC (24-38) Sodium Level 140 mmol/L (136-145) Potassium Level 3.2 mmol/L (3.5-5.1) Chloride Level 97 mmol/L (98-107) Carbon Dioxide Level 30 mmol/L (21-32) Anion Gap 13 (6-14) Blood Urea Nitrogen 23 mg/dL (7-20) Creatinine 0.7 mg/dL (0.6-1.0) Estimated GFR (Cockcroft-Gault) 84.8 BUN/Creatinine Ratio 33 (6-20) Glucose Level 107 mg/dL (70-99) Lactic Acid Level 1.1 mmol/L (0.4-2.0) Calcium Level 10.6 mg/dL (8.5-10.1) Total Bilirubin 0.9 mg/dL (0.2-1.0) Aspartate Amino Transf (AST/SGOT) 26 U/L (15-37) Alanine Aminotransferase (ALT/SGPT) 25 U/L (14-59) Alkaline Phosphatase 110 U/L (46-116) Total Protein 7.4 g/dL (6.4-8.2) Albumin 3.7 g/dL (3.4-5.0) Albumin/Globulin Ratio 1.0 (1.0-1.7) Procalcitonin < 0.10 ng/mL (0.00-0.10) Urine Collection Type U cath Urine Color Freda Urine Clarity Clear Urine pH 6.5 Urine Specific [place] 1.020 Urine Protein 30 mg/dL (NEG-TRACE) Urine Glucose (UA) Negative mg/dL (NEG) Urine Ketones (Stick) 40 mg/dL (NEG) Urine Blood Negative (NEG) Urine Nitrite Negative (NEG) Urine Bilirubin Moderate (NEG) Urine Urobilinogen Dipstick 1.0 mg/dL (0.2 mg/dL) Urine Leukocyte Esterase Trace (NEG) Urine RBC 11-20 /HPF (0-2) Urine WBC 1-4 /HPF (0-4) Urine Squamous Epithelial Cells Mod /LPF Urine Transitional Epithelial Cells Mod /LPF Urine Bacteria 0 /HPF (0-FEW) Urine Hyaline Casts Few /HPF Urine Mucus Marked /LPF Nutrition Consultation Dietary Evaluation: Recommendations by RD: Protein supplementation Comments: Recommend cardiac diet per pt PMHx Recommend Ensure TID Expected Outcomes/Goals: P.O. intake to meet >75% estimated needs Interpretation of weight loss: >10% in 6 months Malnutrition Findings: Muscle Mass (Severe): Severe Depletion Food and Nutrition Intake (Sev: <50% est energy req 5days Body Fat Depletion (Non Severe: Mod to Severe Weight Status: Underweight ELLIS NEWMAN MD Jun 15, 2018 14:22
--- NOTE | 2018-06-15 15:32 | NUR ---
pt wants albuterokl tx prn
--- NOTE | 2018-06-15 17:45 | NUR ---
pt given morphine iv 4mg as ordered for lower back pain at 1720. pt currently sitting up in bed at 90 degree position eating supper. pt now rating pain a 5/10. t max of day 102 degrees F orally. temp now 99.3 degrees F orally.
[2018-06-15] MEDS: LACTOBACILLUS RHAMNOSUS GG 1 CAPSULE. PO SCH (20:30)
[2018-06-16] VITALS (14 sets, daily range): BP systolic 107–168; BP diastolic 69–92
[2018-06-16] MEDS: MORPHINE SULFATE 4 MG/ML VIAL. IV PRN ×4 (06:13→21:21)
[2018-06-16] MEDS: PIPERACILLIN/TAZOBACTAM 3.375 GM in IV NORMAL SALINE 50ML 50 ML IV SCH ×4 (06:13→23:59)
--- NOTE | 2018-06-16 08:06 | PDOC ---
Infectious Disease Note Subjective Subjective pt is feeling ok, cont back pain ROS ROS no n/v/d/sob/fever Vital Sign Vital Signs Vital Signs Date Time Temp Pulse Resp B/P (MAP) Pulse Ox O2 Delivery O2 Flow Rate FiO2 06/16/18 07:41 Room Air 06/16/18 07:02 74 20 128/76 (93) 97 06/16/18 04:00 99.8 99.8 Physical Exam PHYSICAL EXAM GENERAL: Alert, oriented female, not in distress. VITAL SIGNS: Stable HEENT: NAD. NECK: Supple, no JVP, no lymphadenopathy. LUNGS: Clear. HEART: S1, S2 regular. ABDOMEN: Benign. EXTREMITIES: No edema, cyanosis. SKIN: Unremarkable. The patient's backside, patient's mid thoracic area besides the spine, where the pocket is draining purulent stuff. Rest of the skin examination is unremarkable. NEUROLOGIC: The patient is neurologically alert, awake, able to move all the extremities. No focal deficit. Labs Micro ANAEROBIC-AEROBIC CULTURE PENDING ANAEROBIC RES 1 PENDING AEROBIC CULT PENDING AEROBIC RES 1 PENDING GRAM STAIN Final Final report GRAM STAIN RES 1 Final Comment No white blood cells seen. GRAM STAIN RES 2 Final Comment Few gram positive cocci Performed at: [facility] - [facility] [address], [place], [place] [id number] [employer] Systems Engineer: GEMMA Munguia MD, Phone: [phone] Objective Assessment Spinal cord stimulator infection s/p removal on 06/13/18 Fever N/V Leukocytosis Spinal stenosis COPD Plan Plan of Care vanc and zosyn check cultures supportive care BRANT VERNON MD Jun 16, 2018 08:06
[2018-06-16] MEDS: diazePAM 5 MG TABLET PO PRN ×3 (08:33→21:20)
[2018-06-16] MEDS: LACTOBACILLUS RHAMNOSUS GG 1 CAPSULE. PO SCH ×2 (08:33→21:20)
[2018-06-16] MEDS: GABAPENTIN 300 MG CAPSULE. PO SCH ×3 (08:33→21:20)
[2018-06-16] MEDS: amLODIPine BESYLATE 5 MG TABLET PO SCH (08:33)
[2018-06-16] MEDS: SERTRALINE 50 MG TABLET. PO SCH (08:33)
--- NOTE | 2018-06-16 08:33 | PDOC ---
SUBJECTIVE Subjective Doing better this AM. Afebrile since 1000 06/15. Denies nausea. Pain adequately controlled. OBJECTIVE Objective Reviewed Vital Signs Vital Signs Date Time Temp Pulse Resp B/P (MAP) Pulse Ox O2 Delivery O2 Flow Rate FiO2 06/16/18 08:00 65 20 107/71 (83) 97 Room Air 06/16/18 07:41 Room Air 06/16/18 07:02 74 20 128/76 (93) 97 Room Air 06/16/18 06:00 79 22 167/92 (117) 92 Room Air 06/16/18 05:00 71 19 166/80 (108) 90 Room Air 06/16/18 04:00 Room Air 06/16/18 04:00 99.8 73 22 168/80 (109) 90 Room Air 99.8 06/16/18 03:00 70 21 157/73 (101) 94 Room Air 06/16/18 02:00 71 20 150/74 (99) 93 Room Air 06/16/18 01:00 66 18 159/80 (106) 91 Room Air 06/16/18 00:00 99.6 67 19 150/75 (100) 92 Room Air 99.6 06/15/18 23:57 Room Air 06/15/18 23:00 64 17 148/75 (99) 93 Room Air 06/15/18 22:00 69 18 139/81 (100) 95 Room Air 06/15/18 21:00 79 19 103/65 (78) 96 Room Air 06/15/18 20:00 Room Air 06/15/18 20:00 99.4 70 16 109/70 (83) 93 Room Air 99.4 06/15/18 19:00 78 20 127/86 (100) 95 Room Air 06/15/18 18:03 85 18 140/77 (98) 93 Room Air 06/15/18 17:54 16 94 Room Air 06/15/18 17:18 16 94 Room Air 06/15/18 17:00 82 18 137/73 (94) 93 Room Air 06/15/18 16:00 99.3 73 18 118/74 (89) 94 Room Air 99.3 06/15/18 16:00 Room Air 06/15/18 15:00 79 18 119/63 (81) 94 Room Air 06/15/18 14:12 18 93 Room Air 06/15/18 14:00 99.5 90 18 133/79 (97) 95 Room Air 99.5 06/15/18 13:00 94 18 151/80 (103) 93 Room Air 06/15/18 12:00 Room Air 06/15/18 12:00 75 18 137/77 (97) 96 Room Air 06/15/18 11:00 72 18 137/78 (97) 92 Room Air 06/15/18 10:00 102.0 88 18 132/81 (98) 94 Room Air 102.0 06/15/18 09:48 16 94 Room Air 06/15/18 09:07 81 170/84 06/15/18 09:00 83 16 175/88 (117) 94 Room Air I & O Intake and Output 06/16/18 07:00 Intake Total 2330 ml Output Total 1815 ml Balance 515 ml Intake Oral 580 ml IV Total 1750 ml Output Urine Total 1815 ml # Bowel Movements 1 PHYSICAL EXAM Physical Exam Alert, oriented, no acute distress EOMI, sclera non-icteric Neck supple RRR Decreased to auscultation, but otherwise CTAB, no wheezes, crackles or rhonchi ~3-4 cm of erythema and swelling noted on the lower thoracic spine with purulent drainage from two puncture sites Grossly normal sensation/motor of lower extremities No edema, cyanosis. Calm, cooperative, mood/affect within normal limits ASSESSMENT/PLAN Assessment/Plan Sepsis secondary to cellulitis/concern for thoracic spine abscess Chronic back pain and degenerative lumbar spinal stenosis Mild hypercalcemia, worked up previously with normal PTH, improved from previous COPD Nicotine dependence Peripheral artery disease Hypertension Osteoporosis Depression Anxiety Cachexia Neurosurgery and infectious disease following Abx per ID Await cultures and AM labs OK to transfer to floor if ok with Neurosurg Nutrition Consultation Dietary Evaluation: Recommendations by RD: Protein supplementation Comments: Recommend cardiac diet per pt PMHx Recommend Ensure TID Expected Outcomes/Goals: P.O. intake to meet >75% estimated needs Interpretation of weight loss: >10% in 6 months Malnutrition Findings: Muscle Mass (Severe): Severe Depletion Food and Nutrition Intake (Sev: <50% est energy req 5days Body Fat Depletion (Non Severe: Mod to Severe Weight Status: Underweight DYLLAN RUBALCAVA MD Jun 16, 2018 08:33
[2018-06-16] MEDS: FLUTICASONE 50MCG/NASAL SPRAY 16GM BOTTLE. NS SCH (08:35)
[2018-06-16] MEDS: HYDROcodone/APAP 5/325MG 1 TAB TABLET PO PRN (09:30)
--- NOTE | 2018-06-16 09:45 | NUR ---
PT/OT request for orders: Screen indicates possible need for PT and OT. Please order if you agree. Thanks, Will Jiménez PT
[2018-06-16] MEDS: VANCOMYCIN 750 MG in IV NORMAL SALINE 250ML 250 ML IV SCH (10:00)
[2018-06-16 10:22] LABS: BASO # 0.1 x10^3/uL (0.0-0.2); BASO % 1 % (0-3); EOS # 0.1 x10^3/uL (0.0-0.7); EOS % 1 % (0-3); HEMATOCRIT 39.3 % (36.0-47.0); HEMOGLOBIN 13.2 g/dL (12.0-15.5); LYMPH # 1.4 x10^3/uL (1.0-4.8); LYMPH % 15 % (24-48); MEAN CORPUSCULAR HEMOGLOBIN 30 pg (25-35); MEAN CORPUSCULAR HGB CONC 34 g/dL (31-37); MEAN CORPUSCULAR VOLUME 90 fL (79-100); MONO # 0.8 x10^3/uL (0.0-1.1); MONO % 8 % (0-9); NEUT # 6.7 x10^3uL (1.8-7.7); NEUT % 74 % (31-73); PLATELET COUNT 273 x10^3/uL (140-400); RED BLOOD COUNT 4.36 x10^6/uL (3.50-5.40); RED CELL DISTRIBUTION WIDTH 15.8 % (11.5-14.5); WHITE BLOOD COUNT 9.1 x10^3/uL (4.0-11.0)
[2018-06-16 10:38] LABS: CALCIUM 9.1 mg/dL (8.5-10.1); CREATININE 0.5 mg/dL (0.6-1.0); POTASSIUM 3.2 mmol/L (3.5-5.1)
[2018-06-16 10:44] LABS: VANC TR 6.7 mcg/mL (10.0-20.0)
[2018-06-16] MEDS ORDERED: VANCOMYCIN 1 GM in IV NORMAL SALINE 250ML 250 ML IV ONE (11:00)
[2018-06-16] MEDS: VANCOMYCIN PER PHARMACY MC PRN ×3 (13:21→13:24)
--- NOTE | 2018-06-16 13:22 | NUR ---
Pharmacy Vancomycin Dosing Note S: Consulted to monitor and dose vancomycin started 06/14/18. O: BERTHA ZUÑIGA is a 62 year old F with a thoracic epidural abscess. Other Antibiotics: ZOSYN 3.375G IV Q6HRS LABS: Last BUN: 9 Last Creatinine: 0.5 Creatinine Clearance: 80 mL/min Last WBC: 9.1 Last Procalcitonin: - Tmax (past 24 hours): 99.8 Microbiology: BLOOD CX(06/14): NGTD ABSCESS CX (06/14):GPC URINE CX (06/14): IN PROCESS I/O: 2330/1815 Drug Levels: Last Trough level: 6.7 on 06/16/18 at 1000 Last dose given 06/15/18 at 2133 Vancomycin Dosing: Dosing Weight: Actual Target Trough: 15-20 A: Patient is receiving vancomycin 750 mg IV q8hrs. A trough of 6.7 is below goal range. Currently aiming for a higher trough goal due to location of abscess. Patient's SCr is improved from admission with an eCrCl of 80 ml/min. Change to the following: P: 1. Change to Vancomycin 1000 mg IV q8h 2. Follow up Trough level on 06/17/18 at 1130 3. Pharmacy will continue to monitor, follow and adjust therapy as needed. [facility], 06/16/18 [id number]
[2018-06-16] MEDS ORDERED: POTASSIUM CHLORIDE 20 MEQ TABLET.ER. PO ONE (14:00)
--- NOTE | 2018-06-16 14:15 | NUR ---
SS following for discharge planning. SS reviewed pt chart. Pt is from home with spouse and is currently on room air. No discharge needs noted at this time. SS will continue to follow for pending discharge needs.
--- NOTE | 2018-06-16 15:50 | PDOC ---
PROGRESS NOTES Subjective Subjective Patient was seen at 1215 resting in bed, easily awakens back pain, controlled with medication Objective Objective Vital Signs Date Time Temp Pulse Resp B/P (MAP) Pulse Ox O2 Delivery O2 Flow Rate FiO2 06/16/18 15:27 Room Air 06/16/18 15:00 99.1 56 16 145/77 (99) 94 99.1 Intake and Output 06/16/18 07:00 Intake Total 2330 ml Output Total 1815 ml Balance 515 ml Intake Oral 580 ml IV Total 1750 ml Output Urine Total 1815 ml # Bowel Movements 1 Physical Exam General: Oriented X3, Cooperative MUSCULOSKELETAL: Other (HAWKINS) Neuro: Other (strength 5/5 in BLE) Plan Plan of Care 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 Labs Laboratory Tests Test 06/14/18 20:40 06/14/18 20:55 06/15/18 03:30 06/16/18 10:04 White Blood Count 11.0 x10^3/uL (4.0-11.0) 9.1 x10^3/uL (4.0-11.0) Red Blood Count 5.04 x10^6/uL (3.50-5.40) 4.36 x10^6/uL (3.50-5.40) Hemoglobin 15.1 g/dL (12.0-15.5) 13.2 g/dL (12.0-15.5) Hematocrit 45.4 % (36.0-47.0) 39.3 % (36.0-47.0) Mean Corpuscular Volume 90 fL (79-100) 90 fL (79-100) Mean Corpuscular Hemoglobin 30 pg (25-35) 30 pg (25-35) Mean Corpuscular Hemoglobin Concent 33 g/dL (31-37) 34 g/dL (31-37) Red Cell Distribution Width 15.7 % (11.5-14.5) 15.8 % (11.5-14.5) Platelet Count 308 x10^3/uL (140-400) 273 x10^3/uL (140-400) Neutrophils (%) (Auto) 74 % (31-73) 74 % (31-73) Lymphocytes (%) (Auto) 15 % (24-48) 15 % (24-48) Monocytes (%) (Auto) 10 % (0-9) 8 % (0-9) Eosinophils (%) (Auto) 0 % (0-3) 1 % (0-3) Basophils (%) (Auto) 1 % (0-3) 1 % (0-3) Neutrophils # (Auto) 8.2 x10^3uL (1.8-7.7) 6.7 x10^3uL (1.8-7.7) Lymphocytes # (Auto) 1.6 x10^3/uL (1.0-4.8) 1.4 x10^3/uL (1.0-4.8) Monocytes # (Auto) 1.1 x10^3/uL (0.0-1.1) 0.8 x10^3/uL (0.0-1.1) Eosinophils # (Auto) 0.0 x10^3/uL (0.0-0.7) 0.1 x10^3/uL (0.0-0.7) Basophils # (Auto) 0.1 x10^3/uL (0.0-0.2) 0.1 x10^3/uL (0.0-0.2) Prothrombin Time 13.3 SEC (11.7-14.0) Prothromb Time International Ratio 1.0 (0.8-1.1) Activated Partial Thromboplast Time 39 SEC (24-38) Sodium Level 140 mmol/L (136-145) 136 mmol/L (136-145) Potassium Level 3.2 mmol/L (3.5-5.1) 3.2 mmol/L (3.5-5.1) Chloride Level 97 mmol/L (98-107) 99 mmol/L (98-107) Carbon Dioxide Level 30 mmol/L (21-32) 30 mmol/L (21-32) Anion Gap 13 (6-14) 7 (6-14) Blood Urea Nitrogen 23 mg/dL (7-20) 9 mg/dL (7-20) Creatinine 0.7 mg/dL (0.6-1.0) 0.5 mg/dL (0.6-1.0) Estimated GFR (Cockcroft-Gault) 84.8 125.0 BUN/Creatinine Ratio 33 (6-20) Glucose Level 107 mg/dL (70-99) 133 mg/dL (70-99) Lactic Acid Level 1.1 mmol/L (0.4-2.0) Calcium Level 10.6 mg/dL (8.5-10.1) 9.1 mg/dL (8.5-10.1) Total Bilirubin 0.9 mg/dL (0.2-1.0) Aspartate Amino Transf (AST/SGOT) 26 U/L (15-37) Alanine Aminotransferase (ALT/SGPT) 25 U/L (14-59) Alkaline Phosphatase 110 U/L (46-116) Total Protein 7.4 g/dL (6.4-8.2) Albumin 3.7 g/dL (3.4-5.0) Albumin/Globulin Ratio 1.0 (1.0-1.7) Procalcitonin < 0.10 ng/mL (0.00-0.10) Urine Collection Type U cath Urine Color Freda Urine Clarity Clear Urine pH 6.5 Urine Specific Eugene 1.020 Urine Protein 30 mg/dL (NEG-TRACE) Urine Glucose (UA) Negative mg/dL (NEG) Urine Ketones (Stick) 40 mg/dL (NEG) Urine Blood Negative (NEG) Urine Nitrite Negative (NEG) Urine Bilirubin Moderate (NEG) Urine Urobilinogen Dipstick 1.0 mg/dL (0.2 mg/dL) Urine Leukocyte Esterase Trace (NEG) Urine RBC 11-20 /HPF (0-2) Urine WBC 1-4 /HPF (0-4) Urine Squamous Epithelial Cells Mod /LPF Urine Transitional Epithelial Cells Mod /LPF Urine Bacteria 0 /HPF (0-FEW) Urine Hyaline Casts Few /HPF Urine Mucus Marked /LPF Nasal Screen MRSA (PCR) Negative (Negative) Vancomycin Level Trough 6.7 mcg/mL (10.0-20.0) Vancomycin Last Dose Date 06/15/18 Vancomycin Last Dose Time 2100 Laboratory Tests Test 06/16/18 10:04 White Blood Count 9.1 x10^3/uL (4.0-11.0) Red Blood Count 4.36 x10^6/uL (3.50-5.40) Hemoglobin 13.2 g/dL (12.0-15.5) Hematocrit 39.3 % (36.0-47.0) Mean Corpuscular Volume 90 fL (79-100) Mean Corpuscular Hemoglobin 30 pg (25-35) Mean Corpuscular Hemoglobin Concent 34 g/dL (31-37) Red Cell Distribution Width 15.8 % (11.5-14.5) Platelet Count 273 x10^3/uL (140-400) Neutrophils (%) (Auto) 74 % (31-73) Lymphocytes (%) (Auto) 15 % (24-48) Monocytes (%) (Auto) 8 % (0-9) Eosinophils (%) (Auto) 1 % (0-3) Basophils (%) (Auto) 1 % (0-3) Neutrophils # (Auto) 6.7 x10^3uL (1.8-7.7) Lymphocytes # (Auto) 1.4 x10^3/uL (1.0-4.8) Monocytes # (Auto) 0.8 x10^3/uL (0.0-1.1) Eosinophils # (Auto) 0.1 x10^3/uL (0.0-0.7) Basophils # (Auto) 0.1 x10^3/uL (0.0-0.2) Sodium Level 136 mmol/L (136-145) Potassium Level 3.2 mmol/L (3.5-5.1) Chloride Level 99 mmol/L (98-107) Carbon Dioxide Level 30 mmol/L (21-32) Anion Gap 7 (6-14) Blood Urea Nitrogen 9 mg/dL (7-20) Creatinine 0.5 mg/dL (0.6-1.0) Estimated GFR (Cockcroft-Gault) 125.0 Glucose Level 133 mg/dL (70-99) Calcium Level 9.1 mg/dL (8.5-10.1) Vancomycin Level Trough 6.7 mcg/mL (10.0-20.0) Vancomycin Last Dose Date 06/15/18 Vancomycin Last Dose Time 2100 Microbiology 06/14/18 Blood Culture - Preliminary, Resulted NO GROWTH AFTER 1 DAY 06/15/18 Anaerobic/Aerobic Culture, Resulted Pending 06/15/18 Anaerobic Culture Result 1 (PALLAVI), Resulted Pending 06/15/18 Aerobic Culture, Resulted Pending 06/15/18 Aerobic Culture Result 1 (PALLAVI), Resulted Pending 06/15/18 Gram Stain - Final, Resulted 06/15/18 Gram Stain Result 1 (PALLAVI) - Final, Resulted 06/15/18 Gram Stain Result 2 (PALLAVI) - Final, Resulted Medications Current Medications Sodium Chloride 1,000 ml @ 1,200 mls/hr Q50M IV Last administered on at 22:18; Start 06/14/18 at 20:00; Stop 06/14/18 at 20:59; Status DC Piperacillin Sod/ Tazobactam Sod 4.5 gm/Sodium Chloride 100 ml @ 200 mls/hr 1X ONCE IV Last administered on 06/14/18at 21:06; Start 06/14/18 at 20:00; Stop 06/14/18 at 20:29; Status DC Vancomycin HCl (Vanco Per Pharmacy) 1 each 1X ONCE MC Last administered on at 19:45; Start 06/14/18 at 19:45; Stop 06/14/18 at 19:46; Status DC Morphine Sulfate (Morphine Sulfate) 4 mg PRN Q15MIN PRN IV/SQ PAIN GREATER THAN 3/10 Last administered on 06/14/18at 23:15; Start 06/14/18 at 19:45; Stop at 03:36; Status DC Vancomycin HCl 250 ml @ 250 mls/hr 1X ONCE IV Last administered on 06/14/18at 22:19; Start 06/14/18 at 20:30; Stop 06/14/18 at 21:29; Status DC Iohexol (Omnipaque 300 Mg/ml) 75 ml 1X ONCE IV Last administered on 06/14/18at 21:15; Start 06/14/18 at 21:15; Stop 06/14/18 at 21:16; Status DC Info (CONTRAST GIVEN -- Rx MONITORING) 1 each PRN DAILY PRN MC SEE COMMENTS; Start 06/14/18 at 21:15; Stop 06/16/18 at 21:14 Potassium Chloride (Klor-Con) 40 meq 1X ONCE PO Last administered on at 22:18; Start 06/14/18 at 21:15; Stop 06/14/18 at 21:16; Status DC Diazepam (Valium) 5 mg 1X ONCE PO Last administered on 06/15/18at 01:00; Start 06/15/18 at 00:15; Stop 06/15/18 at 00:16; Status DC Morphine Sulfate (Morphine Sulfate) 4 mg 1X ONCE IV ; Start 06/15/18 at 00:15; Stop 06/15/18 at 00:16; Status DC Gadobutrol (Gadavist) 4 mmol 1X ONCE IV Last administered on 06/15/18at 01:52; Start 06/15/18 at 02:00; Stop 06/15/18 at 02:01; Status DC Ondansetron HCl (Zofran) 4 mg PRN Q8HRS PRN IV NAUSEA/VOMITING; Start 06/15/18 at 01:30; Stop 06/17/18 at 01:28 Morphine Sulfate (Morphine Sulfate) 4 mg PRN Q2HR PRN IV PAIN Last administered on 06/15/18at 02:13; Start 06/15/18 at 01:30; Stop 06/15/18 at 09:30 ; Status DC Sodium Chloride 1,000 ml @ 100 mls/hr 1X ONCE IV Last administered on at 02:32; Start 06/15/18 at 01:30; Stop 06/15/18 at 11:29; Status DC Vancomycin HCl 1 gm/Sodium Chloride 250 ml @ 250 mls/hr Q12H IV ; Start at 08:15; Status UNV Piperacillin Sod/ Tazobactam Sod 3.375 gm/Sodium Chloride 50 ml @ 100 mls/hr Q6HRS IV Last administered on 06/16/18at 11:04; Start 06/15/18 at 09:00 Vancomycin HCl 750 mg/Sodium Chloride 250 ml @ 250 mls/hr Q12H IV Last administered on 06/15/18at 21:32; Start 06/15/18 at 10:00; Stop 06/16/18 at 10:58 ; Status DC Vancomycin HCl (Vanco Per Pharmacy) 1 each PRN DAILY PRN MC SEE COMMENTS Last administered on 06/16/18at 13:24; Start 06/15/18 at 08:15 Fluticasone Propionate (Flonase) 2 spray DAILY NS Last administered on at 08:35; Start 06/15/18 at 09:00 Non-Formulary Medication (Albuterol Sulfate (Ventolin Hfa Inhaler)) 2 puff Q4HRS INH ; Start 06/15/18 at 12:00; Status UNV Amlodipine Besylate (Norvasc) 5 mg DAILY PO Last administered on 06/16/18 08: 33; Start 06/15/18 at 09:00 Gabapentin (Neurontin) 600 mg TID PO Last administered on 06/16/18 12:21; Start 06/15/18 at 09:00 Sertraline HCl (Zoloft) 100 mg DAILY PO Last administered on 06/16/18 08:33; Start 06/15/18 at 09:00 Diazepam (Valium) 10 mg TID PRN PRN PO ANXIETY Last administered on 06/16/18 14:55; Start 06/15/18 at 08:15 Albuterol Sulfate (Ventolin Neb Soln) 2.5 mg Q4HRS NEB ; Start 06/15/18 at 08:30 ; Stop 06/15/18 at 16:52; Status DC Morphine Sulfate (Morphine Sulfate) 4 mg PRN Q2HR PRN IV PAIN Last administered on 06/16/18 14:55; Start 06/15/18 at 09:15 Vancomycin HCl (Vancomycin Trough Level) 1 each 1X ONCE MC ; Start 06/16/18 at 09:30; Stop 06/16/18 at 09:31; Status DC Lactobacillus Rhamnosus (Culturelle) 1 cap BID PO Last administered on 08:33; Start 06/15/18 at 21:00 Acetaminophen (Tylenol) 650 mg PRN Q4HRS PRN PO FEVER > 100.5'F Last administered on 06/15/18at 10:26; Start 06/15/18 at 10:30 Albuterol Sulfate (Ventolin Neb Soln) 2.5 mg PRN Q4HRS PRN NEB WHEEZING; Start 06/15/18 at 17:00 Acetaminophen/ Hydrocodone Bitart (Lortab 5/325) 1 tab PRN Q4HRS PRN PO PAIN Last administered on 06/16/18 09:30; Start 06/16/18 at 09:00 Vancomycin HCl 1 gm/Sodium Chloride 250 ml @ 250 mls/hr 1X ONCE IV Last administered on 06/16/18at 12:22; Start 06/16/18 at 11:00; Stop 06/16/18 at 11:59 ; Status DC Vancomycin HCl 1 gm/Sodium Chloride 250 ml @ 250 mls/hr Q8H IV ; Start at 20:00 Vancomycin HCl (Vancomycin Trough Level) 1 each 1X ONCE MC ; Start 06/17/18 at 11:30; Stop 06/17/18 at 11:31 Potassium Chloride (Klor-Con) 40 meq 1X ONCE PO Last administered on at 13:45; Start 06/16/18 at 14:00; Stop 06/16/18 at 14:01; Status DC Active Scripts Active Reported [vitamin b 6] PO Polyethylene Glycol 3350 2,500 Gm Powder 17 Gm PO DAILY Ondansetron Hcl 4 Mg Tablet 1 Tab PO PRN Q4HRS PRN Zoloft (Sertraline Hcl) 100 Mg Tablet 1 Tab PO DAILY Amlodipine Besylate 2.5 Mg Tablet 5 Mg PO DAILY Vitamin C (Ascorbic Acid) 1,000 Mg Tablet 1,000 Mg PO Oxybutynin Chloride Er (Oxybutynin Chloride) 10 Mg Tab.er.24 1 Tab PO DAILY Celebrex (Celecoxib) 200 Mg Capsule 1 Cap PO ONCE Vitamin D3 (Cholecalciferol (Vitamin D3)) 5,000 Unit Capsule 5,000 Unit PO DAILY [Vitamin B 12] 5,000 Mg DAILY Women's Daily Formula (Multivit With Calcium,Iron,Min) 1 Each Tablet 1 Each PO DAILY Aspirin 81 Mg Tab.chew 1 Tab PO DAILY Fluticasone Propionate Nasal [place] (Fluticasone Propionate) 16 Gm [place].susp 2 [place] NS DAILY Gabapentin 600 Mg Tablet 600 Mg PO TID Diazepam 10 Mg Tablet 10 Mg PO TID Ventolin Hfa Inhaler (Albuterol Sulfate) 18 Gm Hfa.aer.ad 2 Puff INH Q4HRS Vitals/I & O Vital Sign - Last 24 Hours 06/15/18 06/15/18 06/15/18 06/15/18 16:00 16:00 17:00 17:18 Temp 99.3 99.3 Pulse 73 82 Resp 18 18 16 B/P (MAP) 118/74 (89) 137/73 (94) Pulse Ox 94 93 94 O2 Delivery Room Air Room Air Room Air Room Air 06/15/18 06/15/18 06/15/18 06/15/18 18:03 19:00 20:00 20:00 Temp 99.4 99.4 Pulse 85 78 70 Resp 18 20 16 B/P (MAP) 140/77 (98) 127/86 (100) 109/70 (83) Pulse Ox 93 95 93 O2 Delivery Room Air Room Air Room Air Room Air 06/15/18 06/15/18 06/15/18 06/15/18 21:00 22:00 23:00 23:57 Pulse 79 69 64 Resp 19 18 17 B/P (MAP) 103/65 (78) 139/81 (100) 148/75 (99) Pulse Ox 96 95 93 O2 Delivery Room Air Room Air Room Air Room Air 06/16/18 06/16/18 06/16/18 06/16/18 00:00 01:00 02:00 03:00 Temp 99.6 99.6 Pulse 67 66 71 70 Resp 19 18 20 21 B/P (MAP) 150/75 (100) 159/80 (106) 150/74 (99) 157/73 (101) Pulse Ox 92 91 93 94 O2 Delivery Room Air Room Air Room Air Room Air 06/16/18 06/16/18 06/16/18 06/16/18 04:00 04:00 05:00 06:00 Temp 99.8 99.8 Pulse 73 71 79 Resp 22 19 22 B/P (MAP) 168/80 (109) 166/80 (108) 167/92 (117) Pulse Ox 90 90 92 O2 Delivery Room Air Room Air Room Air Room Air 06/16/18 06/16/18 06/16/18 06/16/18 07:02 07:41 08:00 08:33 Pulse 74 65 65 Resp 20 20 B/P (MAP) 128/76 (93) 107/71 (83) 107/71 Pulse Ox 97 97 O2 Delivery Room Air Room Air Room Air 06/16/18 06/16/18 06/16/18 06/16/18 09:00 09:01 09:30 09:30 Temp 99.1 99.1 Pulse 79 Resp 20 16 16 B/P (MAP) 134/79 (97) Pulse Ox 97 94 93 O2 Delivery Room Air Room Air Room Air 06/16/18 06/16/18 06/16/18 06/16/18 10:00 10:21 11:00 14:55 Temp 99.2 99.2 Pulse 68 Resp 16 16 20 B/P (MAP) 138/69 (92) Pulse Ox 93 93 94 O2 Delivery Room Air Room Air Room Air 06/16/18 06/16/18 15:00 15:27 Temp 99.1 99.1 Pulse 56 Resp 16 B/P (MAP) 145/77 (99) Pulse Ox 94 O2 Delivery Room Air Room Air Intake and Output 06/15/18 06/15/18 06/16/18 15:00 23:00 07:00 Intake Total 640 ml 1340 ml 350 ml Output Total 1010 ml 250 ml 555 ml Balance -370 ml 1090 ml -205 ml Nutrition Consultation Dietary Evaluation: Recommendations by RD: Protein supplementation Comments: Recommend cardiac diet per pt PMHx Recommend Ensure TID Expected Outcomes/Goals: P.O. intake to meet >75% estimated needs Interpretation of weight loss: >10% in 6 months Malnutrition Findings: Muscle Mass (Severe): Severe Depletion Food and Nutrition Intake (Sev: <50% est energy req 5days Body Fat Depletion (Non Severe: Mod to Severe Weight Status: Underweight DEVORA GONZALEZ BUNDLE SHAKER Jun 16, 2018 15:50
[2018-06-16] MEDS: ALBUTEROL SULFATE 2.5 MG/3 ML NEBU. NEB PRN ×2 (19:58→20:01)
[2018-06-16] MEDS: VANCOMYCIN 1 GM in IV NORMAL SALINE 250ML 250 ML IV SCH (20:18)
[2018-06-17] MEDS: MORPHINE SULFATE 4 MG/ML VIAL. IV PRN ×3 (00:04→09:28)
[2018-06-17 03:00] VITALS: BP 113/68
[2018-06-17] MEDS: VANCOMYCIN 1 GM in IV NORMAL SALINE 250ML 250 ML IV SCH ×3 (04:05→20:59)
[2018-06-17] MEDS: PIPERACILLIN/TAZOBACTAM 3.375 GM in IV NORMAL SALINE 50ML 50 ML IV SCH ×3 (05:53→18:08)
[2018-06-17 07:00] VITALS: BP 137/77
[2018-06-17] MEDS: FLUTICASONE 50MCG/NASAL SPRAY 16GM BOTTLE. NS SCH (09:00)
[2018-06-17] MEDS: amLODIPine BESYLATE 5 MG TABLET PO SCH (09:29)
[2018-06-17] MEDS: SERTRALINE 50 MG TABLET. PO SCH (09:29)
[2018-06-17] MEDS: LACTOBACILLUS RHAMNOSUS GG 1 CAPSULE. PO SCH ×2 (09:29→20:58)
[2018-06-17] MEDS: diazePAM 5 MG TABLET PO PRN ×2 (09:29→18:08)
[2018-06-17] MEDS: HYDROcodone/APAP 5/325MG 1 TAB TABLET PO PRN ×2 (09:29→20:58)
[2018-06-17] MEDS: GABAPENTIN 300 MG CAPSULE. PO SCH ×3 (09:29→20:58)
[2018-06-17] MEDS ORDERED: POTASSIUM CHLORIDE 20 MEQ TABLET.ER. PO ONE (09:30)
--- NOTE | 2018-06-17 10:46 | PDOC ---
PROGRESS NOTES Subjective Subjective up ambulating continued back pain Objective Objective Vital Signs Date Time Temp Pulse Resp B/P (MAP) Pulse Ox O2 Delivery O2 Flow Rate FiO2 06/17/18 09:29 92 Room Air 06/17/18 09:29 63 137/77 06/17/18 07:00 98.8 18 98.8 Intake and Output 06/17/18 07:00 Intake Total 660 ml Output Total 1775 ml Balance -1115 ml Intake Oral 360 ml IV Total 300 ml Output Urine Total 1775 ml Physical Exam General: Alert, Oriented X3, Cooperative MUSCULOSKELETAL: Other (HAWKINS) Plan Plan of Care continue antibiotics per ID increase activity as tolerated will follow Comment Review of Relevant I have reviewed the following items willam (where applicable) has been applied. Labs Laboratory Tests Test 06/16/18 10:04 White Blood Count 9.1 x10^3/uL (4.0-11.0) Red Blood Count 4.36 x10^6/uL (3.50-5.40) Hemoglobin 13.2 g/dL (12.0-15.5) Hematocrit 39.3 % (36.0-47.0) Mean Corpuscular Volume 90 fL (79-100) Mean Corpuscular Hemoglobin 30 pg (25-35) Mean Corpuscular Hemoglobin Concent 34 g/dL (31-37) Red Cell Distribution Width 15.8 % (11.5-14.5) Platelet Count 273 x10^3/uL (140-400) Neutrophils (%) (Auto) 74 % (31-73) Lymphocytes (%) (Auto) 15 % (24-48) Monocytes (%) (Auto) 8 % (0-9) Eosinophils (%) (Auto) 1 % (0-3) Basophils (%) (Auto) 1 % (0-3) Neutrophils # (Auto) 6.7 x10^3uL (1.8-7.7) Lymphocytes # (Auto) 1.4 x10^3/uL (1.0-4.8) Monocytes # (Auto) 0.8 x10^3/uL (0.0-1.1) Eosinophils # (Auto) 0.1 x10^3/uL (0.0-0.7) Basophils # (Auto) 0.1 x10^3/uL (0.0-0.2) Sodium Level 136 mmol/L (136-145) Potassium Level 3.2 mmol/L (3.5-5.1) Chloride Level 99 mmol/L (98-107) Carbon Dioxide Level 30 mmol/L (21-32) Anion Gap 7 (6-14) Blood Urea Nitrogen 9 mg/dL (7-20) Creatinine 0.5 mg/dL (0.6-1.0) Estimated GFR (Cockcroft-Gault) 125.0 Glucose Level 133 mg/dL (70-99) Calcium Level 9.1 mg/dL (8.5-10.1) Vancomycin Level Trough 6.7 mcg/mL (10.0-20.0) Vancomycin Last Dose Date 06/15/18 Vancomycin Last Dose Time 2100 Microbiology 06/14/18 Blood Culture - Preliminary, Resulted NO GROWTH AFTER 2 DAYS 06/14/18 Urine Culture - Final, Complete 06/14/18 Urine Culture Result 1 (PALLAVI) - Final, Complete 06/15/18 Anaerobic/Aerobic Culture, Resulted Pending 06/15/18 Anaerobic Culture Result 1 (PALLAVI), Resulted Pending 06/15/18 Aerobic Culture, Resulted Pending 06/15/18 Aerobic Culture Result 1 (PALLAVI), Resulted Pending 06/15/18 Gram Stain - Final, Resulted 06/15/18 Gram Stain Result 1 (PALLAVI) - Final, Resulted 06/15/18 Gram Stain Result 2 (PALLAVI) - Final, Resulted Medications Current Medications Sodium Chloride 1,000 ml @ 1,200 mls/hr Q50M IV Last administered on at 22:18; Start 06/14/18 at 20:00; Stop 06/14/18 at 20:59; Status DC Piperacillin Sod/ Tazobactam Sod 4.5 gm/Sodium Chloride 100 ml @ 200 mls/hr 1X ONCE IV Last administered on 06/14/18at 21:06; Start 06/14/18 at 20:00; Stop 06/14/18 at 20:29; Status DC Vancomycin HCl (Vanco Per Pharmacy) 1 each 1X ONCE MC Last administered on at 19:45; Start 06/14/18 at 19:45; Stop 06/14/18 at 19:46; Status DC Morphine Sulfate (Morphine Sulfate) 4 mg PRN Q15MIN PRN IV/SQ PAIN GREATER THAN 3/10 Last administered on 06/14/18at 23:15; Start 06/14/18 at 19:45; Stop at 03:36; Status DC Vancomycin HCl 250 ml @ 250 mls/hr 1X ONCE IV Last administered on 06/14/18at 22:19; Start 06/14/18 at 20:30; Stop 06/14/18 at 21:29; Status DC Iohexol (Omnipaque 300 Mg/ml) 75 ml 1X ONCE IV Last administered on 06/14/18at 21:15; Start 06/14/18 at 21:15; Stop 06/14/18 at 21:16; Status DC Info (CONTRAST GIVEN -- Rx MONITORING) 1 each PRN DAILY PRN MC SEE COMMENTS; Start 06/14/18 at 21:15; Stop 06/16/18 at 21:14; Status DC Potassium Chloride (Klor-Con) 40 meq 1X ONCE PO Last administered on at 22:18; Start 06/14/18 at 21:15; Stop 06/14/18 at 21:16; Status DC Diazepam (Valium) 5 mg 1X ONCE PO Last administered on 06/15/18at 01:00; Start 06/15/18 at 00:15; Stop 06/15/18 at 00:16; Status DC Morphine Sulfate (Morphine Sulfate) 4 mg 1X ONCE IV ; Start 06/15/18 at 00:15; Stop 06/15/18 at 00:16; Status DC Gadobutrol (Gadavist) 4 mmol 1X ONCE IV Last administered on 06/15/18at 01:52; Start 06/15/18 at 02:00; Stop 06/15/18 at 02:01; Status DC Ondansetron HCl (Zofran) 4 mg PRN Q8HRS PRN IV NAUSEA/VOMITING; Start 06/15/18 at 01:30; Stop 06/17/18 at 01:28; Status DC Morphine Sulfate (Morphine Sulfate) 4 mg PRN Q2HR PRN IV PAIN Last administered on 06/15/18at 02:13; Start 06/15/18 at 01:30; Stop 06/15/18 at 09:30 ; Status DC Sodium Chloride 1,000 ml @ 100 mls/hr 1X ONCE IV Last administered on at 02:32; Start 06/15/18 at 01:30; Stop 06/15/18 at 11:29; Status DC Vancomycin HCl 1 gm/Sodium Chloride 250 ml @ 250 mls/hr Q12H IV ; Start at 08:15; Status UNV Piperacillin Sod/ Tazobactam Sod 3.375 gm/Sodium Chloride 50 ml @ 100 mls/hr Q6HRS IV Last administered on 06/17/18 05:53; Start 06/15/18 at 09:00 Vancomycin HCl 750 mg/Sodium Chloride 250 ml @ 250 mls/hr Q12H IV Last administered on 06/15/18at 21:32; Start 06/15/18 at 10:00; Stop 06/16/18 at 10:58 ; Status DC Vancomycin HCl (Vanco Per Pharmacy) 1 each PRN DAILY PRN MC SEE COMMENTS Last administered on 06/16/18 13:24; Start 06/15/18 at 08:15 Fluticasone Propionate (Flonase) 2 spray DAILY NS Last administered on 09:00; Start 06/15/18 at 09:00 Non-Formulary Medication (Albuterol Sulfate (Ventolin Hfa Inhaler)) 2 puff Q4HRS INH ; Start 06/15/18 at 12:00; Status UNV Amlodipine Besylate (Norvasc) 5 mg DAILY PO Last administered on 06/17/18 09: 29; Start 06/15/18 at 09:00 Gabapentin (Neurontin) 600 mg TID PO Last administered on 06/17/18 09:29; Start 06/15/18 at 09:00 Sertraline HCl (Zoloft) 100 mg DAILY PO Last administered on 06/17/18 09:29; Start 06/15/18 at 09:00 Diazepam (Valium) 10 mg TID PRN PRN PO ANXIETY Last administered on 06/17/18 09:29; Start 06/15/18 at 08:15 Albuterol Sulfate (Ventolin Neb Soln) 2.5 mg Q4HRS NEB ; Start 06/15/18 at 08:30 ; Stop 06/15/18 at 16:52; Status DC Morphine Sulfate (Morphine Sulfate) 4 mg PRN Q2HR PRN IV PAIN Last administered on 3/23/19at 09:28; Start 06/15/18 at 09:15 Vancomycin HCl (Vancomycin Trough Level) 1 each 1X ONCE MC ; Start 06/16/18 at 09:30; Stop 06/16/18 at 09:31; Status DC Lactobacillus Rhamnosus (Culturelle) 1 cap BID PO Last administered on at 09:29; Start 06/15/18 at 21:00 Acetaminophen (Tylenol) 650 mg PRN Q4HRS PRN PO FEVER > 100.5'F Last administered on 06/15/18at 10:26; Start 06/15/18 at 10:30 Albuterol Sulfate (Ventolin Neb Soln) 2.5 mg PRN Q4HRS PRN NEB WHEEZING Last administered on 06/16/18at 20:01; Start 06/15/18 at 17:00 Acetaminophen/ Hydrocodone Bitart (Lortab 5/325) 1 tab PRN Q4HRS PRN PO PAIN Last administered on 06/17/18at 09:29; Start 06/16/18 at 09:00 Vancomycin HCl 1 gm/Sodium Chloride 250 ml @ 250 mls/hr 1X ONCE IV Last administered on 06/16/18at 12:22; Start 06/16/18 at 11:00; Stop 06/16/18 at 11:59 ; Status DC Vancomycin HCl 1 gm/Sodium Chloride 250 ml @ 250 mls/hr Q8H IV Last administered on 06/17/18at 04:05; Start 06/16/18 at 20:00 Vancomycin HCl (Vancomycin Trough Level) 1 each 1X ONCE MC ; Start 06/17/18 at 11:30; Stop 06/17/18 at 11:31 Potassium Chloride (Klor-Con) 40 meq 1X ONCE PO Last administered on at 13:45; Start 06/16/18 at 14:00; Stop 06/16/18 at 14:01; Status DC Oxycodone HCl (Roxicodone) 10 mg PRN Q4HRS PRN PO PAIN; Start 06/17/18 at 09:30 Potassium Chloride (Klor-Con) 20 meq 1X ONCE PO Last administered on at 09:36; Start 06/17/18 at 09:30; Stop 06/17/18 at 09:31; Status DC Albuterol Sulfate (Ventolin Neb Soln) 2.5 mg RTQID NEB ; Start 06/17/18 at 12:00 Active Scripts Active Reported [vitamin b 6] PO Polyethylene Glycol 3350 2,500 Gm Powder 17 Gm PO DAILY Ondansetron Hcl 4 Mg Tablet 1 Tab PO PRN Q4HRS PRN Zoloft (Sertraline Hcl) 100 Mg Tablet 1 Tab PO DAILY Amlodipine Besylate 2.5 Mg Tablet 5 Mg PO DAILY Vitamin C (Ascorbic Acid) 1,000 Mg Tablet 1,000 Mg PO Oxybutynin Chloride Er (Oxybutynin Chloride) 10 Mg Tab.er.24 1 Tab PO DAILY Celebrex (Celecoxib) 200 Mg Capsule 1 Cap PO ONCE Vitamin D3 (Cholecalciferol (Vitamin D3)) 5,000 Unit Capsule 5,000 Unit PO DAILY [Vitamin B 12] 5,000 Mg DAILY Women's Daily Formula (Multivit With Calcium,Iron,Min) 1 Each Tablet 1 Each PO DAILY Aspirin 81 Mg Tab.chew 1 Tab PO DAILY Fluticasone Propionate Nasal Cubero (Fluticasone Propionate) 16 Gm Cubero.susp 2 Cubero NS DAILY Gabapentin 600 Mg Tablet 600 Mg PO TID Diazepam 10 Mg Tablet 10 Mg PO TID Ventolin Hfa Inhaler (Albuterol Sulfate) 18 Gm Hfa.aer.ad 2 Puff INH Q4HRS Vitals/I & O Vital Sign - Last 24 Hours 06/16/18 06/16/18 06/16/18 06/16/18 11:00 14:55 15:00 19:00 Temp 99.2 99.1 99.3 99.2 99.1 99.3 Pulse 68 56 59 Resp 20 16 18 B/P (MAP) 138/69 (92) 145/77 (99) 160/77 (104) Pulse Ox 94 94 94 O2 Delivery Room Air Room Air Room Air Room Air 06/16/18 06/16/18 06/16/18 06/16/18 20:08 21:21 21:51 23:00 Temp 99.0 99.0 Pulse 71 Resp 18 18 B/P (MAP) 130/71 (90) Pulse Ox 94 94 O2 Delivery Room Air Room Air Room Air 06/17/18 06/17/18 06/17/18 06/17/18 00:04 02:54 03:00 03:24 Temp 98.1 98.1 Pulse 53 Resp 16 16 18 16 B/P (MAP) 113/68 (83) Pulse Ox 94 O2 Delivery Room Air Room Air Room Air 06/17/18 06/17/18 06/17/18 06/17/18 07:00 09:28 09:29 09:29 Temp 98.8 98.8 Pulse 63 63 Resp 18 B/P (MAP) 137/77 (97) 137/77 Pulse Ox 92 92 92 O2 Delivery Room Air Room Air Room Air Intake and Output 06/16/18 06/16/18 06/17/18 15:00 23:00 07:00 Intake Total 660 ml Output Total 225 ml 600 ml 950 ml Balance 435 ml -600 ml -950 ml Nutrition Consultation Dietary Evaluation: Recommendations by RD: Protein supplementation Comments: Recommend cardiac diet per pt PMHx Recommend Ensure TID Expected Outcomes/Goals: P.O. intake to meet >75% estimated needs Interpretation of weight loss: >10% in 6 months Malnutrition Findings: Muscle Mass (Severe): Severe Depletion Food and Nutrition Intake (Sev: <50% est energy req 5days Body Fat Depletion (Non Severe: Mod to Severe Weight Status: Underweight LUCILLE ROMERO MD Jun 17, 2018 10:46
[2018-06-17 11:00] VITALS: BP 137/70
[2018-06-17] MEDS: ALBUTEROL SULFATE 2.5 MG/3 ML NEBU. NEB SCH ×3 (11:03→20:00)
--- NOTE | 2018-06-17 11:19 | PDOC ---
Infectious Disease Note Subjective Subjective Back is sore, legs feel week and incontinent bowel and bladder Wearing depends and Kam in place Denies F/C/S/N/V/D ROS ROS per HPI Vital Sign Vital Signs Vital Signs Date Time Temp Pulse Resp B/P (MAP) Pulse Ox O2 Delivery O2 Flow Rate FiO2 06/17/18 09:29 92 Room Air 06/17/18 09:29 63 137/77 06/17/18 07:00 98.8 18 98.8 Physical Exam PHYSICAL EXAM GENERAL: Propped up in bed, alert, smiling NECK: Supple LUNGS: Clear. HEART: S1, S2 ABDOMEN: Soft and nontender EXTREMITIES: No edema, no cyanosis. SKIN: No rash. mid thoracic area swollen, tender, + drainage NEUROLOGIC: Alert and oriented, Humberto PIV ok Labs Micro 06/14/18 Blood Culture - Preliminary, Resulted NO GROWTH AFTER 2 DAYS URINE CULTURE RES 1 Final No growth Back abscess GRAM STAIN RES 2 Final Few gram positive cocci Objective Assessment Spinal cord stimulator infection s/p removal on 06/13/18. GPC -temporary stimulator was removed on 06/13 in pain clinic, then took Keflex OP Fever,,,improved N/V,,,improved Leukocytosis,,,improved Spinal stenosis COPD Plan Plan of Care Vancomycin and Zosyn Trough 6.7 f/u cultures supportive care Patient seen, examined, I agree with above. Assessment and plan was formulated with MERCHANDISING REPRESENTATIVE. JUANY PATTON APRN Jun 17, 2018 11:19 EKATERINA VERNON MD Jun 17, 2018 15:11
[2018-06-17 12:02] LABS: CALCIUM 9.2 mg/dL (8.5-10.1); CREATININE 0.6 mg/dL (0.6-1.0); GFR 101.3; POTASSIUM 3.7 mmol/L (3.5-5.1)
[2018-06-17 12:08] LABS: VANC TR 19.6 mcg/mL (10.0-20.0)
[2018-06-17] MEDS: VANCOMYCIN PER PHARMACY MC PRN (12:45)
--- NOTE | 2018-06-17 12:46 | NUR ---
Pharmacy Vancomycin Dosing Note S:Consulted to monitor and dose vancomycin started 06/14/18. O:BERTHA ZUÑIGA is a 62 year old F with thoracic epidural abscess . Height: 5 feet, 4 inches Weight: 43.979936 kg [place] Body Weight: 54.70 Adjusted Body Weight: 50.02 Dosing Weight: Actual Other Antibiotics: ZOSYN 3.375G IV Q6HRS LABS: Last BUN: 7 Last Creatinine: 0.6 Creatinine Clearance: 80 mL/min Last WBC: 9.1 Last Procalcitonin: - Tmax (past 24 hours): 99.8 Microbiology: BLOOD CX(06/14): NGTD ABSCESS CX (06/14):GPC URINE CX (06/14): NG I/O: 660/1775 Drug Levels: Last Trough level: 19.6 on 06/17/18 at 1135 Last dose given 06/17/18 at 0405 Vancomycin Dosing: Loading Dose: 1000 mg x1 Dosing Weight: Actual Target Trough: 15-20 A: Based on: trough within range, P: 1. Continue Vancomycin 1000 mg IV q8h 2. Follow up Trough level as needed. 3. Pharmacy will continue to monitor, follow and adjust therapy as needed. YAN MALDONADO [facility], 06/17/18 [id number]
[2018-06-17] MEDS: oxyCODONE IR 5 MG TABLET PO PRN ×3 (13:03→22:15)
[2018-06-17 15:00] VITALS: BP 146/81
[2018-06-17 19:15] VITALS: BP 129/79
--- NOTE | 2018-06-17 19:46 | PN ---
DATE: 06/17/2018 LOCATION: She is in room 432. SUBJECTIVE: The patient is awake, alert, does complain of pain throughout my visit. She described to me in detail all the events leading up to her being here. OBJECTIVE: VITAL SIGNS: Stable. She is afebrile. GENERAL: She does appear uncomfortable. CHEST: Clear. HEART: Regular. ABDOMEN: Benign. LABORATORY DATA: White count yesterday is 9100 with a relatively normal differential. Remarkable for potassium of 3.2, BUN and creatinine have decreased since admission. Blood and urine cultures are negative to date. Wound culture does show some Gram-positive cocci, but no ID's to date. IMPRESSION: 1. Infected spinal cord stimulator, on antibiotics. 2. Chronic pain. 3. Hypokalemia. PLAN: Replace potassium and adjust pain medicines. Await final culture results with ongoing antibiotics per ID. CARSON NOYOLA MD DR: MARIA TERESA/vianca JOB#: [id number] / [id number]
[2018-06-17 23:28] VITALS: BP 107/73
[2018-06-18 03:12] VITALS: BP 117/72
[2018-06-18] MEDS: oxyCODONE IR 5 MG TABLET PO PRN ×3 (04:49→21:20)
[2018-06-18] MEDS: VANCOMYCIN 1 GM in IV NORMAL SALINE 250ML 250 ML IV SCH ×3 (04:51→21:21)
[2018-06-18 05:26] LABS: CALCIUM 9.3 mg/dL (8.5-10.1); CREATININE 0.6 mg/dL (0.6-1.0); GFR 101.3; POTASSIUM 3.9 mmol/L (3.5-5.1)
[2018-06-18] MEDS: PIPERACILLIN/TAZOBACTAM 3.375 GM in IV NORMAL SALINE 50ML 50 ML IV SCH ×6 (06:15→23:20)
[2018-06-18 07:00] VITALS: BP 142/80
[2018-06-18] MEDS: ALBUTEROL SULFATE 2.5 MG/3 ML NEBU. NEB SCH ×5 (07:58→21:50)
--- NOTE | 2018-06-18 09:15 | PDOC ---
Infectious Disease Note Subjective Subjective Not feeling well this morning, c/o back pain Low-grade temp 100.9 Denies chills/N/V/D/constipation ROS ROS per HPI Vital Sign Vital Signs Vital Signs Date Time Temp Pulse Resp B/P (MAP) Pulse Ox O2 Delivery O2 Flow Rate FiO2 06/18/18 07:58 94 Room Air 06/18/18 07:00 98.2 80 16 142/80 (100) 98.2 Physical Exam PHYSICAL EXAM GENERAL: Propped up in bed, alert, tired appearance HENT: Oral cavity dry NECK: Supple LUNGS: Clear. HEART: S1, S2 ABDOMEN: Soft and nontender : Kam EXTREMITIES: No edema, no cyanosis. SKIN: No rash. mid thoracic area swollen, tender, + drainage NEUROLOGIC: Alert and oriented, Humberto PIV ok Labs Lab Laboratory Tests Test 06/17/18 11:35 06/18/18 04:15 Sodium Level 139 mmol/L (136-145) 140 mmol/L (136-145) Potassium Level 3.7 mmol/L (3.5-5.1) 3.9 mmol/L (3.5-5.1) Chloride Level 101 mmol/L (98-107) 103 mmol/L (98-107) Carbon Dioxide Level 31 mmol/L (21-32) 30 mmol/L (21-32) Anion Gap 7 (6-14) 7 (6-14) Blood Urea Nitrogen 7 mg/dL (7-20) 13 mg/dL (7-20) Creatinine 0.6 mg/dL (0.6-1.0) 0.6 mg/dL (0.6-1.0) Estimated GFR (Cockcroft-Gault) 101.3 101.3 Glucose Level 135 mg/dL (70-99) 100 mg/dL (70-99) Calcium Level 9.2 mg/dL (8.5-10.1) 9.3 mg/dL (8.5-10.1) Magnesium Level 1.8 mg/dL (1.8-2.4) Vancomycin Level Trough 19.6 mcg/mL (10.0-20.0) Vancomycin Last Dose Date 06/17/18 Vancomycin Last Dose Time 0400 Micro 06/14/18 Blood Culture - Preliminary, Resulted NO GROWTH AFTER 3 DAYS URINE CULTURE RES 1 Final No growth Back abscess AEROBIC RES 1 Preliminary Staphylococcus aureus Objective Assessment Spinal cord stimulator infection s/p removal on 06/13/18. Staph aureus - susceptibilities pending -temporary stimulator was removed on 06/13 in pain clinic, then took Keflex OP -h/o cervical fusion Fever N/V,,,improved Leukocytosis,,,improved Spinal stenosis COPD Plan Plan of Care Vancomycin and Zosyn Trough 19.6 f/u cultures CBC Pain management per primary Patient seen, examined, I agree with above. Assessment and plan was formulated with LEATHER GOODS ASSEMBLER. JUANY PATTON APRN Jun 18, 2018 09:15 EKATERINA VERNON MD Jun 18, 2018 16:27
[2018-06-18 09:28] LABS: BASO % 0 % (0-3); EOS # 0.2 x10^3/uL (0.0-0.7); EOS % 2 % (0-3); HEMATOCRIT 35.6 % (36.0-47.0); HEMOGLOBIN 11.8 g/dL (12.0-15.5); LYMPH # 1.4 x10^3/uL (1.0-4.8); LYMPH % 18 % (24-48); MEAN CORPUSCULAR HEMOGLOBIN 30 pg (25-35); MEAN CORPUSCULAR HGB CONC 33 g/dL (31-37); MEAN CORPUSCULAR VOLUME 91 fL (79-100); MONO # 0.8 x10^3/uL (0.0-1.1); MONO % 10 % (0-9); NEUT # 5.4 x10^3uL (1.8-7.7); NEUT % 70 % (31-73); PLATELET COUNT 292 x10^3/uL (140-400); RED BLOOD COUNT 3.93 x10^6/uL (3.50-5.40); WHITE BLOOD COUNT 7.8 x10^3/uL (4.0-11.0)
[2018-06-18 11:00] VITALS: BP 116/69
[2018-06-18] MEDS: LACTOBACILLUS RHAMNOSUS GG 1 CAPSULE. PO SCH ×2 (11:55→21:19)
[2018-06-18] MEDS: HYDROcodone/APAP 5/325MG 1 TAB TABLET PO PRN ×2 (11:55→23:12)
[2018-06-18] MEDS: GABAPENTIN 300 MG CAPSULE. PO SCH ×3 (11:56→21:19)
[2018-06-18] MEDS: SERTRALINE 50 MG TABLET. PO SCH (11:56)
[2018-06-18] MEDS: amLODIPine BESYLATE 5 MG TABLET PO SCH (11:56)
[2018-06-18] MEDS: FLUTICASONE 50MCG/NASAL SPRAY 16GM BOTTLE. NS SCH (11:57)
[2018-06-18] MEDS: VANCOMYCIN PER PHARMACY MC PRN (14:07)
[2018-06-18 15:00] VITALS: BP 114/66
[2018-06-18 19:15] VITALS: BP 158/66
--- NOTE | 2018-06-18 19:47 | PN ---
DATE: 06/18/2018 LOCATION: She is in room 432. SUBJECTIVE: The patient was found asleep and is examined without awakening. Nursing reports no concerns. OBJECTIVE: VITAL SIGNS: Stable. She did have a temperature of 100.9 in the last 24 hours. CHEST: Reveals decreased breath sounds, but clear. HEART: Regular. ABDOMEN: Benign. Nursing feels pain control is better. LABORATORY DATA: White count this morning 7800, hemoglobin 11.8 with resolution of her left shift. BMP is essentially completely within normal limits. She remains on IV antibiotics. Staphylococcus aureus is growing out of the wound culture at this point in time, but no ID or sensitivities available yet. ASSESSMENT: 1. Infected spinal cord stimulator with Staphylococcus aureus with sensitivities pending. 2. Leukocytosis, improving. 3. Fever. 4. Chronic obstructive pulmonary disease. 5. Spinal stenosis. PLAN: Continue present treatment per ID with scale back of antibiotics once ID and organisms is done. CARSON NOYOLA MD DR: MARIA TERESA/vianca JOB#: [id number] / [id number]
[2018-06-18] MEDS: diazePAM 5 MG TABLET PO PRN (23:15)
[2018-06-18 23:48] VITALS: BP 119/75
[2018-06-19 03:04] VITALS: BP 85/51
[2018-06-19] MEDS: oxyCODONE IR 5 MG TABLET PO PRN ×3 (05:00→17:03)
[2018-06-19] MEDS: VANCOMYCIN 1 GM in IV NORMAL SALINE 250ML 250 ML IV SCH (05:03)
[2018-06-19] MEDS: PIPERACILLIN/TAZOBACTAM 3.375 GM in IV NORMAL SALINE 50ML 50 ML IV SCH (06:33)
[2018-06-19] MEDS: ALBUTEROL SULFATE 2.5 MG/3 ML NEBU. NEB SCH ×5 (07:42→19:54)
[2018-06-19 08:00] VITALS: BP 135/76
[2018-06-19] MEDS: HYDROcodone/APAP 5/325MG 1 TAB TABLET PO PRN ×4 (08:24→21:32)
[2018-06-19] MEDS: FLUTICASONE 50MCG/NASAL SPRAY 16GM BOTTLE. NS SCH (08:24)
[2018-06-19] MEDS: amLODIPine BESYLATE 5 MG TABLET PO SCH (08:25)
[2018-06-19] MEDS: GABAPENTIN 300 MG CAPSULE. PO SCH ×3 (08:25→21:31)
[2018-06-19] MEDS: LACTOBACILLUS RHAMNOSUS GG 1 CAPSULE. PO SCH ×2 (08:25→21:31)
[2018-06-19] MEDS: SERTRALINE 50 MG TABLET. PO SCH (08:25)
--- NOTE | 2018-06-19 08:39 | PDOC ---
Provider Note Provider Note no more temp- vss- labs ok- cult shows mssa so will use ancef if ok w/ ID- going to mr per neuro surg- rest of meds same WILLOW GANDHI MD Jun 19, 2018 08:39
--- NOTE | 2018-06-19 09:32 | PDOC ---
Infectious Disease Note Subjective: Subjective Not feeling well this morning, c/o back pain tearful as she started missing her daughter who she lost from cancer and her mom who passed last year reassurance given Denies chills/N/V/D/constipation low grade fevers, t max 100 ROS: ROS Negative except for above. Vital Signs: Vital Signs Vital Signs Date Time Temp Pulse Resp B/P (MAP) Pulse Ox O2 Delivery O2 Flow Rate FiO2 06/19/18 09:30 93 Room Air 06/19/18 08:25 74 135/76 06/19/18 08:00 98.9 16 98.9 Physical Exam: PHYSICAL EXAM GENERAL: Propped up in bed, alert, tired appearance HENT: Oral cavity dry NECK: Supple LUNGS: Clear. HEART: S1, S2 ABDOMEN: Soft and nontender : Kam EXTREMITIES: No edema, no cyanosis. SKIN: No rash. mid thoracic area swollen, tender, + drainage NEUROLOGIC: Alert and oriented, Humberto PIV ok Medications: Inpatient Meds: Current Medications Medications (Trade) Dose Ordered Sig/Jeanine Start Time Stop Time Status Last Admin Dose Admin Acetaminophen (Tylenol) 650 mg PRN Q4HRS PRN 06/15/18 10:30 06/15/18 10:26 650 MG Acetaminophen/ Hydrocodone Bitart (Lortab 5/325) 1 tab PRN Q4HRS PRN 06/16/18 09:00 06/19/18 08:24 1 TAB Albuterol Sulfate (Ventolin Neb Soln) 2.5 mg RTQID 06/17/18 12:00 06/19/18 07:42 2.5 MG Amlodipine Besylate (Norvasc) 5 mg DAILY 06/15/18 09:00 06/19/18 08:25 5 MG Cefazolin Sodium 1 gm/Dextrose 50 ml @ 100 mls/hr Q8HRS 06/19/18 12:00 Diazepam (Valium) 10 mg TID PRN PRN 06/15/18 08:15 06/18/18 23:15 10 MG Fluticasone Propionate (Flonase) 2 spray DAILY 06/15/18 09:00 06/19/18 08:24 2 SPRAY Gabapentin (Neurontin) 600 mg TID 06/15/18 09:00 06/19/18 08:25 600 MG Gadobutrol (Gadavist) 4 mmol 1X ONCE 06/15/18 02:00 06/15/18 02:01 DC 06/15/18 01:52 4 MMOL Info (CONTRAST GIVEN -- Rx MONITORING) 1 each PRN DAILY PRN 06/14/18 21:15 06/16/18 21:14 DC Iohexol (Omnipaque 300 Mg/ml) 75 ml 1X ONCE 06/14/18 21:15 06/14/18 21:16 DC 06/14/18 21:15 75 ML Lactobacillus Rhamnosus (Culturelle) 1 cap BID 06/15/18 21:00 06/19/18 08:25 1 CAP Morphine Sulfate (Morphine Sulfate) 4 mg PRN Q2HR PRN 06/15/18 09:15 06/17/18 19:59 DC 06/17/18 09:28 4 MG Non-Formulary Medication (Albuterol Sulfate (Ventolin Hfa Inhaler)) 2 puff Q4HRS 06/15/18 12:00 UNV Ondansetron HCl (Zofran) 4 mg PRN Q8HRS PRN 06/15/18 01:30 06/17/18 01:28 DC Oxycodone HCl (Roxicodone) 10 mg PRN Q4HRS PRN 06/17/18 09:30 06/19/18 05:00 10 MG Piperacillin Sod/ Tazobactam Sod 3.375 gm/Sodium Chloride 50 ml @ 100 mls/hr Q6HRS 06/15/18 09:00 06/19/18 08:28 DC 06/19/18 06:33 100 MLS/HR Piperacillin Sod/ Tazobactam Sod 4.5 gm/Sodium Chloride 100 ml @ 200 mls/hr 1X ONCE 06/14/18 20:00 06/14/18 20:29 DC 06/14/18 21:06 200 MLS/HR Potassium Chloride (Klor-Con) 20 meq 1X ONCE 06/17/18 09:30 06/17/18 09:31 DC 06/17/18 09:36 20 MEQ Sertraline HCl (Zoloft) 100 mg DAILY 06/15/18 09:00 06/19/18 08:25 100 MG Sodium Chloride 1,000 ml @ 100 mls/hr 1X ONCE 06/15/18 01:30 06/15/18 11:29 DC 06/15/18 02:32 100 MLS/HR Vancomycin HCl (Vanco Per Pharmacy) 1 each PRN DAILY PRN 06/15/18 08:15 06/19/18 08:41 DC 06/18/18 14:07 1 EACH Vancomycin HCl (Vancomycin Trough Level) 1 each 1X ONCE 06/17/18 11:30 06/17/18 11:31 DC Vancomycin HCl 750 mg/Sodium Chloride 250 ml @ 250 mls/hr Q12H 06/15/18 10:00 06/16/18 10:58 DC 06/15/18 21:32 250 MLS/HR Vancomycin HCl 1 gm/Sodium Chloride 250 ml @ 250 mls/hr Q8H 06/16/18 20:00 06/19/18 08:28 DC 06/19/18 05:03 250 MLS/HR Labs: Micro RUN DATE: 06/18/18 PAGE 1 RUN TIME: 1708 [facility] [address] [place] [address] Jeremy Escamilla M.D., Programmable Logic Controller Assembler PATIENT: BERTHA ZUÑIGA ACCT: [id number] LOC: [address] [place] [address] U : [id number] AGE/SX: 62/F ROOM: 432 REG : 06/15/[address]: DYLLAN RUBALCAVA MD : 1955 BED: 1 DIS : STATUS: ADM IN TLOC: SPEC #: [id number] EMMETT: 06/15/18 STATUS: RES REQ #: [id number] RECD: 06/15/[address] [facility] [address]: PORFIRIO ORTIZ APRN SOURCE: BACK ENTR: 06/15/18 [facility] DR: WILLOW GANDHI MD [facility]: ABSCESS ORDERED: ANAER/AEROB/GS Procedure Result ANAEROBIC-AEROBIC CULTURE PENDING ANAEROBIC RES 1 PENDING AEROBIC CULT Final Final report AEROBIC RES 1 Final Staphylococcus aureus 4+ Based on susceptibility to oxacillin this isolate would be susceptible to: *Penicillinase-stable penicillins, such as: Cloxacillin, Dicloxacillin, Nafcillin *Beta-lactam combination agents, such as: Amoxicillin-clavulanic acid, Ampicillin-sulbactam, Piperacillin-tazobactam *Oral cephems, such as: Cefaclor, Cefdinir, Cefpodoxime, Cefprozil, Cefuroxime, Cephalexin, Loracarbef *Parenteral cephems, such as: Cefazolin, Cefepime, Cefotaxime, Cefotetan, Ceftaroline, Ceftizoxime, Ceftriaxone, Cefuroxime *Carbapenems, such as: Doripenem, Ertapenem, Imipenem, Meropenem ANTIMICROBIAL SUSCEPTIBILITY Final Comment S = Susceptible; I = Intermediate; R = Resistant P = Positive; N = Negative MICS are expressed in micrograms per mL Antibiotic RSLT#1 RSLT#2 RSLT#3 RSLT#4 Ciprofloxacin S<=0.5 Clindamycin S<=0.25 Erythromycin S<=0.25 CONTINUED ON NEXT PAGE RUN DATE: 06/18/18 PAGE 2 RUN TIME: 5523 [facility] [address] [place] [address] Jeremy Escamilla M.D., Programmable Logic Controller Assembler SPEC: [id number] PATIENT: EDDIECLAYBERTHA Fany [id number] ( Continued) Procedure Result ANTIMICROBIAL SUSCEPTIBILITY Final (continued) Gentamicin S<=0.5 Levofloxacin S<=0.12 Linezolid S =2 Moxifloxacin S<=0.25 Oxacillin S<=0.25 Penicillin R>=0.5 Quinupristin/Dalfopristin S<=0.25 Rifampin S<=0.5 Tetracycline S<=1 Trimethoprim/Sulfa S<=10 Vancomycin S =1 GRAM STAIN Final Final report GRAM STAIN RES 1 Final Comment No white blood cells seen. GRAM STAIN RES 2 Final Comment Few gram positive cocci Performed at: DA - [facility] [address], [place], [place] [id number] Egg Producer: GEMMA Munguia MD, Phone: [phone] Objective: Assessment: 1. Spinal cord stimulator infection, status post removal.cults positive for staph aureus, oxacillin sensitive 2. Small T11-T12 epidural abscess. 3. Fever. 4. Leukocytosis. 5. Chronic obstructive pulmonary disease. 6. Spinal stenosis. Plan: Plan of Care DC Vanc and zosyn f/u cults Change to cefazolin monitor fever pattern f/u MRI cervical spine local wound care Pain management per primary EKATERINA VERNON MD Jun 19, 2018 09:32
--- NOTE | 2018-06-19 09:45 | RAD ---
EXAMINATION: Magnetic resonance imaging (MRI) of the cervical spine without contrast 06/19/2018 8:54 AM HISTORY: Chronic neck pain, history of cervical fusion. TECHNIQUE: Multiplanar multi-weighted MRI of the cervical spine was performed without intravenous contrast using the standard cervical spine protocol. Contrast information: None administered COMPARISON: MRI cervical spine August 02, 2006 FINDINGS: There is minimal retrolisthesis of C3 on C4. Anterior cervical discectomy and fusion is identified from C4 through C6 with ventral plate and screws. Marrow signal intensity is normal in all sequences. Vertebral body heights are maintained. No acute fracture is identified. There is cord signal alteration with cortical volume loss at C4-C5 suggestive of myelomalacia. There is cord signal alteration with T2 signal hyperintensity at C3-C4 which may represent myelomalacia or cord edema. Posterior fossa is normal in appearance. Vertebral artery flow voids are maintained. There is no prevertebral soft tissue swelling. No paraspinal soft tissue abnormality is identified. Posterior hardware appears present at C4-C5. C2-C3: There is a posterior disc osteophyte complex. No significant facet arthropathy. No neuroforaminal or spinal canal stenosis. There is mild uncovertebral joint disease. C3-C4: There is a posterior disc osteophyte complex asymmetric to the right. There is ligamentum flavum infolding. There is mild to moderate facet arthropathy. There is severe right and moderate left neuroforaminal stenosis. There is moderate spinal canal stenosis with cord signal alteration which may represent cord edema or myelomalacia. C4-C5: This level is fused. There is a right posterior osteophyte resulting in mild spinal canal stenosis. No significant neuroforaminal stenosis. There is moderate facet arthropathy. C5-C6: This level is fused. There is a posterior osteophyte. There is mild facet arthropathy. Moderate uncovertebral joint disease. Mild right neuroforaminal stenosis. Mild spinal canal stenosis. C6-C7: There is a posterior disc osteophyte complex asymmetric to the right with a right foraminal disc protrusion. There is mild facet arthropathy. Moderate to severe right and moderate left neuroforaminal stenosis. Mild/moderate spinal canal stenosis. C7-T1: There is a disc bulge. There is mild facet and uncovertebral joint disease. Mild right neuroforaminal stenosis. No spinal canal stenosis. IMPRESSION: 1. Anterior cervical discectomy and fusion hardware is identified from C4 through C6 with myelomalacia at C4-C5. There is mild residual spinal canal stenosis at C5-C6. 2. There is a posterior disc osteophyte complex at C3-C4, asymmetric to the right. There is moderate to severe spinal canal stenosis exacerbated by ligamentum flavum infolding resulting in cord signal alteration which may represent myelomalacia or cord edema. Electronically signed by: Elidia Graves MD (06/19/2018 9:42 AM) [id number]
[2018-06-19] MEDS: diazePAM 5 MG TABLET PO PRN ×2 (10:23→21:36)
[2018-06-19 11:00] VITALS: BP 114/68
[2018-06-19] MEDS ORDERED: ceFAZolin SODIUM 1 GM in IV DEXTROSE 5% 50 ML IV SCH (12:00)
[2018-06-19] MEDS ORDERED: LIDOCAINE WITH 8.4% SOD BICARB 3 ML DISP.SYRIN. ONE (13:43)
--- NOTE | 2018-06-19 13:57 | NUR ---
SW following. Discussed with RN, possibility of picc line today. BRYAN met with pt to discuss discharge planning and PT/OT recommendation of SNU. Pt does not want to go to a facility as had bad experience in the past. Pt lives at home with , in a one level home with a couple of stairs down to the laundry, where she and her share the laundry chores. Pt uses a 4 pronged cane at home, and a walker when out. Pt reported she has had so many surgeries and become upset when discussion about picc line began, she just recently had a trial tx or procedure which is what she believes she got the infection from, and is now worried about putting anything in her body. Pt began crying when stating her mother used to be a support for her but she a year ago today. BRYAN discussed with pt the possibility of a [facility] referral, pt agreeable to having facesheet sent in order to determine eligibility for [facility]. BRYAN faxed face sheet to [facility]. RN notified.
[2018-06-19] MEDS ORDERED: LIDOCAINE WITH 8.4% SOD BICARB 3 ML DISP.SYRIN. INJ ONE (14:00)
--- NOTE | 2018-06-19 14:56 | RAD ---
Exam: Fluoroscopic and ultrasound guided right percutaneous inserted central venous catheter placement 06/19/2018 2:52 PM .Indication: [facility] ANTIBIOTICS Technique: Informed oral and written consent were obtained. The right upper extremity was prepped and draped using sterile barrier technique. All elements of maximal sterile barrier technique including the use of a cap, mask, sterile gown, sterile gloves, large sterile sheet, appropriate hand hygiene, and 2% chlorhexidine for cutaneous antisepsis (or acceptable alternative antiseptic per current guidelines) were followed for this procedure.. Real-time ultrasound demonstrated a patent right basilic vein. The right upper extremity was prepped and draped in usual sterile fashion. 1% lidocaine used for local anesthesia. Using real-time ultrasound guidance the access needle percutaneously punctured the selected vein. Reference ultrasound images were saved to the medical record. A guidewire was advanced through the needle to the cavoatrial junction, and a peel-away sheath placed. The catheter was cut to length and inserted through the peel-away sheath such that its tip is at the cavoatrial junction. The wire and sheath were removed, and the catheter secured in place, and a sterile dressing was applied. Catheter was found to flush and aspirate normally. No immediate complications are identified. FLUORO TIME: 0.96 minutes DOSE AREA PRODUCT: 1 Gycm2 Impression: Ultrasound and fluoroscopically guided placement of a right upper extremity PICC line.
[2018-06-19] MEDS: OXYBUTYNIN CHLORIDE 5 MG TABLET PO SCH ×2 (14:59→21:32)
[2018-06-19 15:00] VITALS: BP 119/68
[2018-06-19 19:00] VITALS: BP 145/80
[2018-06-19 23:00] VITALS: BP 108/65
[2018-06-20] MEDS: HYDROcodone/APAP 5/325MG 1 TAB TABLET PO PRN (02:21)
[2018-06-20 03:00] VITALS: BP 137/69
[2018-06-20] MEDS: oxyCODONE IR 5 MG TABLET PO PRN ×3 (06:34→15:45)
[2018-06-20 07:00] VITALS: BP 135/93
[2018-06-20] MEDS: ALBUTEROL SULFATE 2.5 MG/3 ML NEBU. NEB SCH ×3 (08:11→15:39)
--- NOTE | 2018-06-20 08:17 | PDOC ---
Provider Note Provider Note stable, vss , no new sxs- cults neg- will need rehab per iv ancef- discussed copd, anorexia, will try for more calories WILLOW GANDHI MD Jun 20, 2018 08:17
--- NOTE | 2018-06-20 08:52 | PDOC ---
Infectious Disease Note Subjective: Subjective pt says she is doing ok today still has pain at the spinal stimulator removal site no f/c/n/v/d/abdo pain po intake remains poor eager to go rehab ROS: ROS Negative except for above. Vital Signs: Vital Signs Vital Signs Date Time Temp Pulse Resp B/P (MAP) Pulse Ox O2 Delivery O2 Flow Rate FiO2 06/20/18 08:11 96 Room Air 06/20/18 06:34 16 06/20/18 03:00 98.0 73 137/69 (91) 98.0 Physical Exam: PHYSICAL EXAM GENERAL: Propped up in bed, alert, tired appearance HENT: Oral cavity dry NECK: Supple LUNGS: Clear. HEART: S1, S2 ABDOMEN: Soft and nontender : Kam EXTREMITIES: No edema, no cyanosis. SKIN: No rash. mid thoracic area swollen, tender, + drainage NEUROLOGIC: Alert and oriented, Humberto PIV ok Medications: Inpatient Meds: Current Medications Medications (Trade) Dose Ordered Sig/Jeanine Start Time Stop Time Status Last Admin Dose Admin Acetaminophen (Tylenol) 650 mg PRN Q4HRS PRN 06/15/18 10:30 06/15/18 10:26 650 MG Acetaminophen/ Hydrocodone Bitart (Lortab 5/325) 1 tab PRN Q4HRS PRN 06/16/18 09:00 06/20/18 08:16 DC 06/20/18 02:21 1 TAB Albuterol Sulfate (Ventolin Neb Soln) 2.5 mg RTQID 06/17/18 12:00 06/20/18 08:11 2.5 MG Amlodipine Besylate (Norvasc) 5 mg DAILY 06/15/18 09:00 06/19/18 08:25 5 MG Cefazolin Sodium 1 gm/Dextrose 50 ml @ 100 mls/hr Q8HRS 06/19/18 12:00 06/19/18 12:00 DC Cefazolin Sodium/ Dextrose 50 ml @ 100 mls/hr Q8HRS 06/19/18 12:00 06/20/18 05:45 100 MLS/HR Diazepam (Valium) 10 mg TID PRN PRN 06/15/18 08:15 06/19/18 21:36 10 MG Fluticasone Propionate (Flonase) 2 spray DAILY 06/15/18 09:00 06/19/18 08:24 2 SPRAY Gabapentin (Neurontin) 600 mg TID 06/15/18 09:00 06/19/18 21:31 600 MG Gadobutrol (Gadavist) 4 mmol 1X ONCE 06/15/18 02:00 06/15/18 02:01 DC 06/15/18 01:52 4 MMOL Info (CONTRAST GIVEN -- Rx MONITORING) 1 each PRN DAILY PRN 06/14/18 21:15 06/16/18 21:14 DC Iohexol (Omnipaque 300 Mg/ml) 75 ml 1X ONCE 06/14/18 21:15 06/14/18 21:16 DC 06/14/18 21:15 75 ML Lactobacillus Rhamnosus (Culturelle) 1 cap BID 06/15/18 21:00 06/19/18 21:31 1 CAP Lidocaine/Sodium Bicarbonate (Buffered Lidocaine 1%) 6 ml 1X ONCE 06/19/18 14:00 06/19/18 14:01 DC 06/19/18 14:20 6 ML Morphine Sulfate (Morphine Sulfate) 4 mg PRN Q2HR PRN 06/15/18 09:15 06/17/18 19:59 DC 06/17/18 09:28 4 MG Non-Formulary Medication (Albuterol Sulfate (Ventolin Hfa Inhaler)) 2 puff Q4HRS 06/15/18 12:00 UNV Ondansetron HCl (Zofran) 4 mg PRN Q8HRS PRN 06/15/18 01:30 06/17/18 01:28 DC Oxybutynin Chloride (Ditropan) 5 mg [id number] 06/19/18 15:00 06/19/18 21:32 5 MG Oxycodone HCl (Roxicodone) 10 mg PRN Q4HRS PRN 06/17/18 09:30 06/20/18 06:34 10 MG Piperacillin Sod/ Tazobactam Sod 3.375 gm/Sodium Chloride 50 ml @ 100 mls/hr Q6HRS 06/15/18 09:00 06/19/18 08:28 DC 06/19/18 06:33 100 MLS/HR Piperacillin Sod/ Tazobactam Sod 4.5 gm/Sodium Chloride 100 ml @ 200 mls/hr 1X ONCE 06/14/18 20:00 06/14/18 20:29 DC 06/14/18 21:06 200 MLS/HR Potassium Chloride (Klor-Con) 20 meq 1X ONCE 06/17/18 09:30 06/17/18 09:31 DC 06/17/18 09:36 20 MEQ Sertraline HCl (Zoloft) 100 mg DAILY 06/15/18 09:00 06/19/18 08:25 100 MG Sodium Chloride 1,000 ml @ 100 mls/hr 1X ONCE 06/15/18 01:30 06/15/18 11:29 DC 06/15/18 02:32 100 MLS/HR Vancomycin HCl (Vanco Per Pharmacy) 1 each PRN DAILY PRN 06/15/18 08:15 06/19/18 08:41 DC 06/18/18 14:07 1 EACH Vancomycin HCl (Vancomycin Trough Level) 1 each 1X ONCE 06/17/18 11:30 06/17/18 11:31 DC Vancomycin HCl 750 mg/Sodium Chloride 250 ml @ 250 mls/hr Q12H 06/15/18 10:00 06/16/18 10:58 DC 06/15/18 21:32 250 MLS/HR Vancomycin HCl 1 gm/Sodium Chloride 250 ml @ 250 mls/hr Q8H 06/16/18 20:00 06/19/18 08:28 DC 06/19/18 05:03 250 MLS/HR Labs: Micro RUN DATE: 06/18/18 PAGE 1 RUN TIME: 1708 [facility] [address] [place] [address] Jeremy Escamilla M.D., Salesperson [employer] PATIENT: BERTHA ZUÑIGA ACCT: [id number] LOC: [address] [place] [address] U : [id number] AGE/SX: 62/F ROOM: 432 REG : 06/15/[address]: DYLLAN RUBALCAVA MD : 1955 BED: 1 DIS : STATUS: ADM IN TLOC: SPEC #: [id number] EMMETT: 06/15/18 STATUS: RES REQ #: [id number] RECD: 06/15/[address]: PORFIRIO ORTIZ APRN SOURCE: BACK ENTR: 06/15/[address] [facility] [address]: WILLOW GANDHI MD SPDC: ABSCESS ORDERED: ANAER/AEROB/GS Procedure Result ANAEROBIC-AEROBIC CULTURE PENDING ANAEROBIC RES 1 PENDING AEROBIC CULT Final Final report AEROBIC RES 1 Final Staphylococcus aureus 4+ Based on susceptibility to oxacillin this isolate would be susceptible to: *Penicillinase-stable penicillins, such as: Cloxacillin, Dicloxacillin, Nafcillin *Beta-lactam combination agents, such as: Amoxicillin-clavulanic acid, Ampicillin-sulbactam, Piperacillin-tazobactam *Oral cephems, such as: Cefaclor, Cefdinir, Cefpodoxime, Cefprozil, Cefuroxime, Cephalexin, Loracarbef *Parenteral cephems, such as: Cefazolin, Cefepime, Cefotaxime, Cefotetan, Ceftaroline, Ceftizoxime, Ceftriaxone, Cefuroxime *Carbapenems, such as: Doripenem, Ertapenem, Imipenem, Meropenem ANTIMICROBIAL SUSCEPTIBILITY Final Comment S = Susceptible; I = Intermediate; R = Resistant P = Positive; N = Negative MICS are expressed in micrograms per mL Antibiotic RSLT#1 RSLT#2 RSLT#3 RSLT#4 Ciprofloxacin S<=0.5 Clindamycin S<=0.25 Erythromycin S<=0.25 CONTINUED ON NEXT PAGE RUN DATE: 06/18/18 PAGE 2 RUN TIME: 1701 [facility] [address] [place] [address] Jeremy Escamilla M.D., Salesperson [employer] SPEC: [id number] PATIENT: YOGESHBERTHA C [id number] ( Continued) Procedure Result ANTIMICROBIAL SUSCEPTIBILITY Final (continued) Gentamicin S<=0.5 Levofloxacin S<=0.12 Linezolid S =2 Moxifloxacin S<=0.25 Oxacillin S<=0.25 Penicillin R>=0.5 Quinupristin/Dalfopristin S<=0.25 Rifampin S<=0.5 Tetracycline S<=1 Trimethoprim/Sulfa S<=10 Vancomycin S =1 GRAM STAIN Final Final report GRAM STAIN RES 1 Final Comment No white blood cells seen. GRAM STAIN RES 2 Final Comment Few gram positive cocci Performed at: - [facility] [address], [place], [place] [id number] Lacquerer: GEMMA Munguia MD, Phone: [phone] Objective: Assessment: 1. Spinal cord stimulator infection, status post removal.cults positive for staph aureus, oxacillin sensitive 2. Possible Small T11-T12 epidural abscess.BC neg so far 3. Fever.resolved 4. Leukocytosis.resolved 5. Chronic obstructive pulmonary disease. 6. Spinal stenosis.Cervical MRI noted per Neurosurgery 7. Hypercalcemia Plan: Plan of Care cont cefazolin 2gm IV q8hrs picc line in place local wound care Pain management per primary Script given to RN for dc abx ,weekly labs picc back feeder plywood layup line SW to assist for dc antibiotics F/U ID Clinic in 2 weeks CBC/ESR/BUN/CREAT ALEXI VERNONHATI S MD Jun 20, 2018 08:52
--- NOTE | 2018-06-20 09:23 | NUR ---
SW following. Discussed with RN. BRYAN met with pt, pt spoke with her and believes she has been to [facility] before, and would like referral sent there for rehab and IV abx. At this time, abx will be Ancef Q8. [facility] will come to do a bedside assessment today. RN notified.
[2018-06-20] MEDS: GABAPENTIN 300 MG CAPSULE. PO SCH ×2 (09:27→13:14)
[2018-06-20] MEDS: FLUTICASONE 50MCG/NASAL SPRAY 16GM BOTTLE. NS SCH (09:27)
[2018-06-20] MEDS: OXYBUTYNIN CHLORIDE 5 MG TABLET PO SCH ×2 (09:27→13:14)
[2018-06-20] MEDS: LACTOBACILLUS RHAMNOSUS GG 1 CAPSULE. PO SCH (09:27)
[2018-06-20] MEDS: SERTRALINE 50 MG TABLET. PO SCH (09:27)
[2018-06-20] MEDS: amLODIPine BESYLATE 5 MG TABLET PO SCH (09:28)
[2018-06-20 10:09] LABS: ALBUMIN 2.7 g/dL (3.4-5.0); ALBUMIN/GLOBULIN RATIO 0.7 (1.0-1.7); C-REACTIVE PROTEIN 34.7 mg/L (0-3.3); CALCIUM 9.7 mg/dL (8.5-10.1); CREATININE 0.7 mg/dL (0.6-1.0); GFR 84.8; POTASSIUM 3.7 mmol/L (3.5-5.1); TOTAL BILIRUBIN 0.3 mg/dL (0.2-1.0); TOTAL PROTEIN 6.5 g/dL (6.4-8.2)
[2018-06-20 10:18] LABS: BASO # 0.1 x10^3/uL (0.0-0.2); BASO % 1 % (0-3); EOS # 0.3 x10^3/uL (0.0-0.7); EOS % 3 % (0-3); HEMATOCRIT 36.9 % (36.0-47.0); HEMOGLOBIN 12.2 g/dL (12.0-15.5); LYMPH # 1.1 x10^3/uL (1.0-4.8); LYMPH % 13 % (24-48); MEAN CORPUSCULAR HEMOGLOBIN 30 pg (25-35); MEAN CORPUSCULAR HGB CONC 33 g/dL (31-37); MEAN CORPUSCULAR VOLUME 90 fL (79-100); MONO # 0.7 x10^3/uL (0.0-1.1); MONO % 9 % (0-9); NEUT # 6.3 x10^3uL (1.8-7.7); NEUT % 74 % (31-73); PLATELET COUNT 331 x10^3/uL (140-400); RED BLOOD COUNT 4.09 x10^6/uL (3.50-5.40); RED CELL DISTRIBUTION WIDTH 15.7 % (11.5-14.5); WHITE BLOOD COUNT 8.4 x10^3/uL (4.0-11.0)
[2018-06-20 11:00] VITALS: BP 126/83
--- NOTE | 2018-06-20 12:55 | NUR ---
SW following. Discussed with RN, BRYAN contacted Robb at [facility] to determine ornelas of Cefazolin 2mg 100mls/ hour Q8 for 6 weeks. [facility] advised the total per day for self pay pt's would be $37.16 for medication and supplies. BRYAN met with pt, pt would like to go home with [facility] and home infusion. BRYAN called [facility] to determine ornelas, [facility] would be $44 per day. SW left voicemail for [place], did not receive a call back. BRYAN checked with pt, pt would like referral sent to [facility], and son would like to be present for the teaching. SW faxed referral to [facility], awaiting confirmation of acceptance and time they are able to do the teaching. RN notified. BRYAN will continue to follow.
--- NOTE | 2018-06-20 14:39 | NUR ---
BRYAN following. Meet will come to do a teaching between 1530 and 1600. BRYAN phone and faxed referral to [facility] (ph:[phone], fax: [phone]). BRYAN awaiting confirmation [facility] can accept pt. Pt choice and rights letter signed and placed in chart. SW will continue to follow. RN notified.
[2018-06-20 15:00] VITALS: BP 106/67
--- NOTE | 2018-06-20 16:50 | NUR ---
pt is discharged home with home health and IV infusion therapy at 1645 via wheelchair via ashley maurice. pt is in stable condition. pt has all belongings with her. pt received discharge instructions and prescriptions and stated she had no further questions for me. an infusion respiratory therapy assistant came to instruct pt on IV home infusions.
--- NOTE | 2018-06-21 15:04 | DS ---
DATE OF DISCHARGE: 06/20/2018 HOSPITAL SUMMARY: A 62-year-old white female came in with abscess in the thoracic area related to placement of a failed spinal stimulator. The pain management doctor had reported seeing feces in the wound in his office, which contributed to the infection. CBC and chemistry profile were unremarkable. Cultures ultimately of the wound grew MSSA sensitive to all antibiotics tested. The MRI of the cervical spine was unremarkable. Blood cultures had no growth. She was treated with vancomycin and Zosyn initially and ultimately switched to Ancef. PICC line was placed and she will be taking 5 more weeks of IV antibiotics per Infectious Disease recommendations. She will be discharged to home with home health for the IV antibiotics. FINAL DIAGNOSES: 1. Thoracic spine abscess secondary to infected spinal stimulator. 2. End-stage chronic obstructive pulmonary disease with severe malnutrition. OPERATIONS, PROCEDURES, COMPLICATIONS: None. CONSULTATIONS: Dr. Saab and Dr. Long, Infectious Disease. DISPOSITION: IV Ancef 1 gram t.i.d. for 5 more weeks. I will see her in followup as scheduled. She will see the Infectious Disease doctor in 1-2 weeks and follow up as well. Prognosis is poor because of her end-stage COPD and continued tobacco abuse. WILLOW GANDHI MD DR: JOSEPH/vianca JOB#: [id number] / [id number]
[2018-06-22 02:11] LABS: IGG1 496 mg/dL (248-810); IGG2 169 mg/dL (130-555); IGG3 62 mg/dL (15-102); IGG4 42 mg/dL (2-96); TOTAL IGG 844 mg/dL (700-1600)
== END 2018-06-20 16:45 | disposition home health service (06) | DRG 91 ==
LOC: ER 18:18 → 1 WEST ICU 06-15 00:31 → 4 NORTH 06-16 14:32
PROVIDERS: ADMIT Family Medicine; ATTEND Family Medicine
PROC: 02HV33Z Insertion of Infusion Device into Superior Vena Cava, Percutaneous Approach (ICD-10-PCS; principal; 2018-06-19)
PROC: B5181ZA Fluoroscopy of Superior Vena Cava using Low Osmolar Contrast, Guidance (ICD-10-PCS; 2018-06-19)
PROC: B548ZZA Ultrasonography of Superior Vena Cava, Guidance (ICD-10-PCS; 2018-06-19)
DX: T85.733A Infection and inflammatory reaction due to implanted electronic neurostimulator of spinal cord, electrode (lead), initial encounter (principal); A41.9 Sepsis, unspecified organism; E43 Unspecified severe protein-calorie malnutrition; G06.2 Extradural and subdural abscess, unspecified; G06.1 Intraspinal abscess and granuloma; L03.90 Cellulitis, unspecified; R64 Cachexia; Z68.1 Body mass index [BMI] 19.9 or less, adult; B95.61 Methicillin susceptible Staphylococcus aureus infection as the cause of diseases classified elsewhere; I10 Essential (primary) hypertension; E83.52 Hypercalcemia; F17.210 Nicotine dependence, cigarettes, uncomplicated; E87.6 Hypokalemia; F32.9 Major depressive disorder, single episode, unspecified; F41.9 Anxiety disorder, unspecified; M54.5 Low back pain; G89.29 Other chronic pain; I73.9 Peripheral vascular disease, unspecified; J44.9 Chronic obstructive pulmonary disease, unspecified; M48.00 Spinal stenosis, site unspecified; M81.0 Age-related osteoporosis without current pathological fracture; Y83.1 Surgical operation with implant of artificial internal device as the cause of abnormal reaction of the patient, or of later complication, without mention of misadventure at the time of the procedure; Z98.1 Arthrodesis status; Z90.710 Acquired absence of both cervix and uterus
CPT/HCPCS: 36415; 36569; 72129; 72132; 72141; 72157; 76937; 77001; 80048; 80053; 80202; 81001; 82787; 83605; 83735; 84145; 85025; 85610; 85651; 85730; 86140; 87040; 87071; 87075; 87086; 87186; 87641; 94640; 94760; 96365; 96366; 96367; 96375; A9585; C1751; C1892; J0696; J2270; J2543; J3370; J7030; J7050; J7613; Q9967; 97110; 97116; 97535; 99285-25

== ENCOUNTER → 2018-08-01 | Outpatient (CLI) | payer MEDICARE ==
[~2018-08-01] MED LIST changes: +GADOTERATE 5 MMOL/10ML VIAL. IVP ONE
--- NOTE | 2018-08-02 08:48 | RAD ---
MR thoracic spine with and without contrast August 01, 2018 INDICATION: Thoracic epidural abscess. COMPARISON: MR thoracic spine June 15, 2018 TECHNIQUE: Multiplanar, multisequence MR imaging of the thoracic spine before and after the administration of 8 mL gadolinium based contrast. FINDINGS: Alignment of the thoracic spine is normal. Vertebral body heights are maintained. Marrow signal intensity is normal in all sequences. Disc heights are predominantly maintained with mild disc desiccation the lower thoracic spine. Inferior endplate Schmorl's node is identified at T7 without significant height loss. Anterior cervical discectomy and fusion hardware is identified from C4 through C6 with ventral plate and screws. Cord signal alteration is identified at C3-C4 likely secondary to disc bulge and ligamentum flavum infolding. There is no signal alteration involving the thoracic spinal cord. No enhancing epidural fluid collection is identified to suggest phlegmon or epidural abscess. Thyroid gland is normal in appearance. No suspicious pulmonary abnormalities identified. Thoracic aorta is normal in caliber. Visualized portions of the mediastinum appear normal. No paraspinal soft tissue abnormality is identified. IMPRESSION: 1. Anterior cervical discectomy and fusion hardware is identified from C4 through C6. There is suspicion of cord signal alteration at C3-C4 which may be secondary to degenerative disc disease and ligamentum flavum infolding. 2. There is no epidural fluid collection to suggest phlegmon or abscess. Electronically signed by: Elidia Graves MD (08/02/2018 8:45 AM) [email or web address]
== END | disposition home or self-care (01) ==
LOC: MRI 15:51
PROVIDERS: ATTEND Neurological Surgery
DX: M51.44 Schmorl's nodes, thoracic region (principal); G06.1 Intraspinal abscess and granuloma; Z98.1 Arthrodesis status
CPT/HCPCS: 72157; A9575

== ENCOUNTER → 2019-01-12 | Outpatient (CLI) | payer MEDICARE ==
[2018-12-19 10:13] VITALS: BP 196/95
[~2019-01-12] MED LIST changes: +CYAN-25 PO; -GADOTERATE 5 MMOL/10ML VIAL. IVP ONE; -OXYB10TA PO; +OXYB10TA2 PO; +OXYB5TAB10 PO; -OXYB5TAB7 PO; +PYRI100T PO; +TIZA4TAB2 PO
== END | disposition home or self-care (01) ==
LOC: LAB 10:49
PROVIDERS: ATTEND Internal Medicine Infectious Disease
DX: B95.61 Methicillin susceptible Staphylococcus aureus infection as the cause of diseases classified elsewhere (principal)
CPT/HCPCS: 36415; 87040

== ENCOUNTER → 2019-01-26 | Outpatient (CLI) | payer MEDICARE ==
[2018-12-19 10:13] VITALS: BP 196/95
[~2019-01-26] MED LIST changes: +GADOTERATE 5 MMOL/10ML VIAL. ONE
--- NOTE | 2019-01-26 12:13 | RAD ---
MRI Lumbar Spine without and with contrast History: Worsening low back pain with left leg radiculopathy Technique: Multiplanar, multi sequential pre and postcontrast MR imaging was performed of the lumbar spine. Comparison: November 05, 2015 Findings: There is mild motion. There is similar degree of old superior height loss of L1, lumbar vertebral body stature unchanged. There is negligible anterior spondylolisthesis at L5-S1 and L4-5. Conus terminates near L1-2. There is L4-5 and L3-4 endplate edema likely reactive/degenerative in etiology. There is mild degenerative disc disease greater on the right at L3-4 and L2-3, mild disc desiccation at other levels. There is no nodular enhancement of the conus or cauda equina, no enhancement in the intervertebral disc spaces. There is mild lumbar levoscoliosis. L1-L2: There is mild buckling of the ligamentum flavum. There is negligible posterior bulge. Spinal canal and neural foramina are overall adequate. L2-L3: There is mild buckling of the ligamentum flavum and mild to moderate facet degenerative change. There is minimal disc osteophyte complex. There is minimal narrowing of the far right lateral recess. There is very mild narrowing of the inferior right neural foramen, left neural foramen adequate. L3-L4: There is minimal disc osteophyte complex and bulge. There is mild to moderate facet degenerative change and buckling of the ligamentum flavum. There is minimal narrowing of the far lateral recesses greater on the right. Left neural foramen is adequate. There is mild to moderate narrowing of the right neural foramen greater distally with contact undersurface exiting right L3 nerve root by disc osteophyte complex extending to the proximal extraforaminal region somewhat more apparent on this exam. L4-L5: There is again severe left facet degenerative change, to lesser degree on the right. There is [id number] buckling of the ligamentum flavum. Spinal canal is overall adequate. There is left posterior annular tear. There is minimal narrowing of the left neural foramen in part from facet degenerative change, right neural foramen overall adequate. L5-S1: There is moderate left facet degenerative change, to lesser degree on the right. There is very shallow posterior central protrusion without neural impingement. Spinal canal and right neural foramen are adequate, mild posterior narrowing of the left neural foramen by facet. Impression: 1. There is no new significant lumbar spinal stenosis, minimal narrowing of the far lateral recesses greater on the right at L3-4 and also on the right at L2-3. 2. There is moderate narrowing of the distal right L3-4 neural foramen by disc osteophyte complex, contact of the undersurface exiting right L3 nerve root extending to the extraforaminal region. There is other minimal narrowing on the left at L4-5 and L5-S1 and on the right at L2-3. 3. There is mild degenerative disc disease at L2-3 and L3-4. Electronically signed by: Júnior Valentino MD (01/26/2019 12:10 PM) [id number]
== END | disposition home or self-care (01) ==
LOC: MRI 09:56
PROVIDERS: ATTEND Internal Medicine Nephrology
DX: M43.17 Spondylolisthesis, lumbosacral region (principal); M51.36 Other intervertebral disc degeneration, lumbar region; M25.78 Osteophyte, vertebrae; M51.27 Other intervertebral disc displacement, lumbosacral region
CPT/HCPCS: 72158; A9575

== ENCOUNTER → 2019-01-26 | Outpatient (CLI) | payer MEDICARE ==
[2018-12-19 10:13] VITALS: BP 196/95
[~2019-01-26] MED LIST changes: -GADOTERATE 5 MMOL/10ML VIAL. ONE; +GADOTERATE 7.5 MMOL/15ML VIAL. IVP ONE
--- NOTE | 2019-01-26 14:34 | RAD ---
MRI Cervical Spine with and without contrast History: Cervical stenosis Technique: Multiplanar, multi sequential pre and postcontrast MR imaging was performed of the cervical spine. Comparison: June 19, 2018 Findings: There again has been anterior cervical fusion C4, C5, C6. There are incorporated interbody grafts at C4-5 and C5-6. Cervical vertebral body stature is maintained. There is interval posterior subluxation C3 relative to C4, negligible anterior spondylolisthesis C7-T1. Cervical cord caliber is within normal limits. There is again increased T2 and STIR signal of the cord C3-4 and also at C4-C5. There is questionable punctate focus of enhancement of the posterior cord at C3-4 at which there is spinal stenosis. C2-C3: There is minimal disc osteophyte complex. There is buckling of the ligamentum flavum. Central canal is minimally narrowed to about 8 to 9 mm in part on developmental basis. Neural foramina are adequate. C3-C4: There is again disc osteophyte complex and superimposed broad bulge with degree of mild enhancement at the periphery inferiorly. Central canal is again significantly narrowed to about 4 to 5 mm with contact of the cord. There is signal change along the right lamina compatible with presence of metallic plates. There is uncovertebral degenerative change and facet degenerative change bilaterally. There is moderate to severe neural foramina compromise bilaterally. C4-C5: Central canal is adequate about 11 mm. There are some posterior osteophytes in the right lateral recess slightly indenting the ventral thecal sac. There is facet degenerative change. Neural foramina are overall adequate. C5-C6: There are minimal posterior osteophytes. Central canal is borderline about 10 mm. Neural foramina are not significantly narrowed, very mild narrowing on the right. C6-C7: There is very minimal disc osteophyte complex. There is uncovertebral degenerative change bilaterally. There is bilateral facet degenerative change. There is severe right and moderate to severe left neural foramina compromise. Central canal is minimally narrowed about 9 mm, minimal narrowing of the lateral recesses. C7-T1: Spinal canal is adequate. There is facet degenerative change. Poorly evaluated, there is likely [id number] posterior narrowing of the left neural foramen, right neural foramen more likely adequate. Impression: 1. 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 There is a lesser degree of mild spinal stenosis at C6-7 and C2-3. 2. There are postsurgical changes of cervical spine from anterior cervical fusion C4-C6 at which there are incorporated interbody grafts, also metallic plate along the right lamina at C3 and C4. 3. There is again more significant neural foramina compromise bilaterally at C3-C4. Electronically signed by: Júnior Valentino MD (01/26/2019 2:31 PM) [id number]
== END | disposition home or self-care (01) ==
LOC: MRI 10:03
PROVIDERS: ATTEND Neurological Surgery
DX: M43.13 Spondylolisthesis, cervicothoracic region (principal); M48.02 Spinal stenosis, cervical region; M25.78 Osteophyte, vertebrae
CPT/HCPCS: 72156; A9575

== ENCOUNTER → 2019-01-26 | Outpatient (CLI) | payer MEDICARE ==
[2018-12-19 10:13] VITALS: BP 196/95
[~2019-01-26] MED LIST changes: -GADOTERATE 7.5 MMOL/15ML VIAL. IVP ONE
--- NOTE | 2019-01-26 16:21 | RAD ---
CT CHEST WO CONTRAST Indication: Lung nodule Technique: Noncontrast CT imaging was performed of the chest, multiplanar reconstruction images submitted. One or more of the following individualized dose reduction techniques were utilized for this examination: 1. Automated exposure control 2. Adjustment of the mA and/or kV according to patient size 3. Use of iterative reconstruction technique. Comparison: November 11, 2018 Findings: Previously seen right middle lobe infiltrate has mostly resolved, minimal residual density more medially. There is been development of new right lower lobe infiltrate also with some of foci of associated nodularity such as seen images 48 through 52, focus of somewhat nodular density image 49 about 1 cm, some other smaller foci more superiorly image 48. Previously seen left lower lobe infiltrate has resolved. Left upper lobe nodule about 0.7 cm image 76 is somewhat greater as previously about 0.4 cm. There is again emphysema. Minimal density in the right mainstem bronchus is more likely component of mucus, linear morphology. There is no pneumothorax or pleural or pericardial fluid. There is some coronary calcification. There is somewhat ectatic ascending thoracic aorta about 3.8 cm unchanged. No new significantly enlarged nodes are identified of the chest. Vertebral body stature is unchanged, degree of mild superior height loss of T12 and L1. There is old fracture deformity of the sternum as seen previously. IMPRESSION: 1. There is been development of new mild right lower lobe infiltrate with a somewhat nodular morphology and also previously seen small left upper lobe nodule somewhat larger than previously for which another short-term follow-up exam in about 3 months advised. Previously seen left lower lobe infiltrate has resolved, previously seen right middle lobe infiltrate also mostly resolved. 2. There is emphysema. 3. Minimal density in the right mainstem bronchus is more likely due to mucus. Electronically signed by: Júnior Valentino MD (01/26/2019 4:18 PM) [email or web address]
== END | disposition home or self-care (01) ==
LOC: CT 10:06
PROVIDERS: ATTEND Internal Medicine Pulmonary Disease
DX: J43.9 Emphysema, unspecified (principal); R91.8 Other nonspecific abnormal finding of lung field; R91.1 Solitary pulmonary nodule; I77.810 Thoracic aortic ectasia
CPT/HCPCS: 71250

== ENCOUNTER → 2019-02-14 | Outpatient (CLI) | payer MEDICARE ==
[2018-12-19 10:13] VITALS: BP 196/95
[~2019-02-14] MED LIST changes: +BARIUM SULFATE 40% (APPLE) 148 GM PWD. PO ONE
--- NOTE | 2019-02-14 10:35 | RAD ---
EXAM: Modified barium swallow. HISTORY: Dysphagia. FINDINGS: Barium contrast material was administered orally and multiple consistencies under the direction of speech pathology, and followed in its course during swallowing with video fluoroscopy. A fluoroscopic image and multiple videofluoroscopic clips were obtained. Fluoroscopy time 3.4 minutes. The radiologist was present for the entire imaging procedure. There was trace laryngeal penetration and aspiration with thin liquids on some occasions. There was no reproducible laryngeal penetration or aspiration with other consistencies. IMPRESSION: 1. Trace aspiration with thin liquids. Refer to the full report by speech pathology for more detail. Electronically signed by: Carlos Chanel MD (02/14/2019 10:32 AM) [facility]
== END | disposition home or self-care (01) ==
LOC: RAD 10:00
PROVIDERS: ATTEND Internal Medicine Pulmonary Disease
DX: R13.10 Dysphagia, unspecified (principal)
CPT/HCPCS: 74230; 92526; 92611

== ENCOUNTER → 2019-02-20 | Outpatient (CLI) | payer MEDICARE ==
[2018-12-19 10:13] VITALS: BP 196/95
[~2019-02-20] MED LIST changes: -BARIUM SULFATE 40% (APPLE) 148 GM PWD. PO ONE
[2019-02-20 12:11] LABS: BASO # 0.1 x10^3/uL (0.0-0.2); BASO % 1 % (0-3); EOS # 0.2 x10^3/uL (0.0-0.7); EOS % 2 % (0-3); HEMATOCRIT 41.8 % (36.0-47.0); HEMOGLOBIN 13.7 g/dL (12.0-15.5); LYMPH # 1.8 x10^3/uL (1.0-4.8); LYMPH % 24 % (24-48); MEAN CORPUSCULAR HEMOGLOBIN 28 pg (25-35); MEAN CORPUSCULAR HGB CONC 33 g/dL (31-37); MEAN CORPUSCULAR VOLUME 87 fL (79-100); MONO # 0.4 x10^3/uL (0.0-1.1); MONO % 6 % (0-9); NEUT # 4.9 x10^3/uL (1.8-7.7); NEUT % 67 % (31-73); PLATELET COUNT 215 x10^3/uL (140-400); RED CELL DISTRIBUTION WIDTH 14.7 % (11.5-14.5); WHITE BLOOD COUNT 7.2 x10^3/uL (4.0-11.0)
[2019-02-20 12:36] LABS: ALBUMIN 4.3 g/dL (3.4-5.0); CREATININE 0.7 mg/dL (0.6-1.0); DIRECT BILIRUBIN 0.1 mg/dL (0.0-0.2); GFR 84.5; TOTAL BILIRUBIN 0.2 mg/dL (0.2-1.0); TOTAL PROTEIN 8.3 g/dL (6.4-8.2)
== END | disposition home or self-care (01) ==
LOC: LAB 11:46
PROVIDERS: ATTEND Internal Medicine Infectious Disease
DX: Z86.19 Personal history of other infectious and parasitic diseases (principal)
CPT/HCPCS: 36415; 80076; 82565; 84520; 85025

== ENCOUNTER 2019-05-06 20:59 | Emergency (ER) | payer MEDICARE ==
[~2019-05-06] VITALS: Ht 162.6 cm; Wt 45.0 kg
[~2019-05-06 20:59] MED LIST changes: +ONDA-84 PO; -ONDA4TAB11 PO; -OXYB10TA2 PO; +OXYB10TA26 PO; -PYRI100T PO; +PYRI100T9 PO
[2019-05-06] MEDS: LIDOCAINE 1%/EPI 1:100,000 20 ML VIAL. SQ ONE (22:25)
[2019-05-06] MEDS: NEOMY/BACITR/POLYMYXIN OINT PACKET. TP ONE (22:26)
[2019-05-06] MEDS: DIPHTH,PERTUSS(ACELL),TET TOX 0.5 ML DISP.SYRIN. VAX IM ONE (22:27)
[2019-05-06] MEDS ORDERED: HYDROcodone/APAP 5/325MG 1 TAB TABLET ONE (22:31)
--- NOTE | 2019-05-06 22:34 | RAD ---
Exam: CT head and cervical spine without contrast INDICATION: Facial laceration TECHNIQUE: Sequential axial images through the head and cervical spine were obtained without the administration of IV contrast. Comparisons: None FINDINGS: Head: No focal parenchymal lesion or hemorrhage is identified. There is no midline shift or sulcal effacement. No acute vascular territory infarction is identified. Montemayor-white distinction is preserved. The ventricular system is within normal limits without compression hydrocephalus. The basal cisterns are well maintained. The visualized portions of the paranasal sinuses and mastoid air cells are well-pneumatized. No acute fractures. Cervical spine: Anterior cervical fusion hardware is noted from C4 to C6 with bilateral interbody screws and interconnecting vertical stabilization plate. Fracture to the cervical spine is not identified. Mild multilevel degenerative change noted throughout the cervical spine. Visualized paraspinal soft tissues IMPRESSION: 1. No acute intracranial abnormality. 2. Negative CT C-spine for acute traumatic injury. Exposure: One or more of the following in the visualized dose reduction techniques were utilized for this examination: 1. Automated exposure control 2. Adjustment of the MA and/or KV according to patient size Use of iterative of reconstructive technique Electronically signed by: Salma Forrest MD (05/06/2019 10:31 PM) [id number]
[2019-05-06] MEDS: HYDROcodone/APAP 5/325MG 1 TAB TABLET PO ONE (22:36)
--- NOTE | 2019-05-06 22:40 | PHYS DOC ---
Past Medical History Past Medical History: Anxiety, COPD, Depression, Hypertension, Vascular Disease Additional Past Medical Histor: OSTEOPOROSIS, CACHEXIA, SEPSIS, NICOTINE DEPENDENCE, CHRONIC BACK PAIN (CEDRIC GRIFFITH APRN) Past Surgical History: Hysterectomy, Oophorectomy Additional Past Surgical Histo: CERVICAL SPINE FUSION, RT HIP REPLACEMENT (CEDRIC GRIFFITH APRN) Smoking Status: Former Smoker Additional Information: QUIT SMOKING 10/2019 Alcohol Use: None Drug Use: None (CEDRIC GRIFFITH APRN) Attending Signature I have participated in the care of this patient and I have reviewed and agree with all pertinent clinical information above including history, exam, and recommendations. (QUE MARINO MD) Adult General Chief Complaint Chief Complaint: LACERATION/AVULSION HPI HPI Patient is a 63 year old female, accompanied by her , who presents to the emergency department with complaints of a laceration above her left eye and abrasions to the bridge of her nose after hitting her head on a chair this evening. Patient states she is getting ready for bed when she turned around and ask only hit her head on the chair. She denies any loss consciousness, dizziness, neck pain, back pain, vision changes, nosebleed, nausea, or vomiting since the injury. She currently complains of a headache, she rates the pain a 8 out of 10 on the pain scale patient denies any alleviating or exacerbating factors. Patient is unsure of when her last tetanus shot was. (CEDRIC GRIFFITH APRN) Review of Systems Review of Systems All other ROS is negative unless otherwise noted in HPI. (CEDRIC GRIFFITH APRN) Current Medications Current Medications Current Medications Medications (Trade) Dose Ordered Sig/Jeanine Start Time Stop Time Status Last Admin Dose Admin Acetaminophen/ Hydrocodone Bitart (Lortab 5/325) 1 tab 1X ONCE 05/06/19 22:45 05/06/19 22:46 DC 05/06/19 22:36 1 TAB Diphtheria/ Tetanus/Acell Pertussis (Boostrix) 0.5 ml ONCE ONCE 05/06/19 22:30 05/06/19 22:31 DC 05/06/19 22:27 0.5 ML Lidocaine/ Epinephrine (LIDOCAINE 1%-EPI 1:100,000 Multi-Dose) 20 ml 1X ONCE 05/06/19 22:30 05/06/19 22:31 DC 05/06/19 22:25 20 ML Neomycin/ Polymyxin/ Bacitracin (Triple Antibiotic Ointment) 1 pkt 1X ONCE 05/06/19 22:30 05/06/19 22:31 DC 05/06/19 22:26 1 PKT (QUE MARINO MD) Allergies Allergies Allergies Coded Allergies Type Severity Reaction Last Updated Verified No Known Drug Allergies 12/19/18 No (QUE MARINO MD) Physical Exam Physical Exam See Above Constitutional: Well developed, well nourished, no acute distress, non-toxic appearance. [] HENT: Normocephalic, atraumatic, bilateral external ears normal, oropharynx moist, no oral exudates, nose normal. [] Eyes: PERRLA, EOMI, conjunctiva normal, no discharge. [] Neck: Normal range of motion, no tenderness, no stridor. [] Cardiovascular:Heart rate regular rhythm Lungs & Thorax: Bilateral breath sounds clear to auscultation, Respirations even and unlabored, no retractions, no respiratory distress [] Skin: Warm, dry, no erythema, no rash; 3 cm laceration noted to lateral left eyebrow with no active bleeding, superficial abrasion noted to bridge of nose with no active bleeding. [] Back: No tenderness[] Extremities: No cyanosis, ROM intact Neurologic: Alert and oriented X 3, no focal deficits noted. [] Psychologic: Affect normal, judgement normal, mood normal. [] (CEDRIC GRIFFITH APRN) Current Patient Data Vital Signs Vital Signs Date Time Temp Pulse Resp B/P (MAP) Pulse Ox O2 Delivery O2 Flow Rate FiO2 05/06/19 23:23 54 119/66 (83) 94 Room Air 05/06/19 22:36 16 05/06/19 21:25 97.9 97.9 (QUE MARINO MD) EKG EKG [] (CEDRIC GRIFFITH APRN) Radiology/Procedures Radiology/Procedures PROCEDURE: CT HEAD AND CERVICAL SPINE WO Exam: CT head and cervical spine without contrast INDICATION: Facial laceration TECHNIQUE: Sequential axial images through the head and cervical spine were obtained without the administration of IV contrast. Comparisons: None FINDINGS: Head: No focal parenchymal lesion or hemorrhage is identified. There is no midline shift or sulcal effacement. No acute vascular territory infarction is identified. Montemayor-white distinction is preserved. The ventricular system is within normal limits without compression hydrocephalus. The basal cisterns are well maintained. The visualized portions of the paranasal sinuses and mastoid air cells are well-pneumatized. No acute fractures. Cervical spine: Anterior cervical fusion hardware is noted from C4 to C6 with bilateral interbody screws and interconnecting vertical stabilization plate. Fracture to the cervical spine is not identified. Mild multilevel degenerative change noted throughout the cervical spine. Visualized paraspinal soft tissues IMPRESSION: 1. No acute intracranial abnormality. 2. Negative CT C-spine for acute traumatic injury. Laceration Repair by me: Anesthesia: 1% lidocaine locally with epi Location: left eyebrow Tendon/Joint/Nerves: No injury Foreign body: None detected after copious irrigation and exploration Technique: 5 Simple Interrupted Sutures with 6-0 Ethilon Complexity: No subcutaneous sutures/mucosal repair/edge excision Post Closure Length: 3 cm Patient's bleeding was easily controlled in the department and there is no indication of anemia. No evidence of compartment syndrome, neurologic injury, vascular injury, open joint, tendon laceration, or foreign body. Patient is appropriate for outpatient follow up. 48 hour wound check. Scar minimization instructions given. [] (CEDRIC GRIFFITH APRN) Course & Med Decision Making Course & Med Decision Making Pertinent Labs and Imaging studies reviewed. (See chart for details) [] (CEDRIC GRIFFITH APRN) Dragon Disclaimer Dragon Disclaimer This electronic medical record was generated, in whole or in part, using a voice recognition dictation system. (CEDRIC GRIFFITH APRN) Departure Departure Impression: Primary Impression: Laceration of left eyebrow without complication Additional Impressions: Abrasion of nose, initial encounter Closed head injury without loss of consciousness Need for Tdap vaccination Disposition: 01 HOME, SELF-CARE Condition: STABLE Referrals: WILLOW GANDHI MD (PCP) Patient Instructions: Abrasion, [id number], Facial Laceration, [id number], Head Injury, Adult, [id number] Additional Instructions: Tylenol or ibuprofen as needed for pain. Follow the head injury precautions provided. Keep the area clean and dry. Apply antibiotic ointment and a clean bandage twice daily. Follow up with your primary care doctor or return to the ER in 5 days to have sutures removed. Return to the ER if symptoms worsen. Problem Qualifiers Primary Impression: Laceration of left eyebrow without complication Encounter type: initial encounter Qualified Codes: S01.112A - Laceration without foreign body of left eyelid and periocular area, initial encounter Additional Impressions: Closed head injury without loss of consciousness Encounter type: initial encounter Qualified Codes: S09.90XA - Unspecified injury of head, initial encounter CEDRIC GRIFFITH APRN May 06, 2019 22:40 QUE MARINO MD May 07, 2019 05:29
[2019-05-06 23:23] VITALS: BP 119/66
== END 2019-05-06 23:25 | disposition home or self-care (01) ==
LOC: ER 20:59
DX: S01.112A Laceration without foreign body of left eyelid and periocular area, initial encounter (principal); R51 Headache; J44.9 Chronic obstructive pulmonary disease, unspecified; I10 Essential (primary) hypertension; G89.29 Other chronic pain; Z87.891 Personal history of nicotine dependence; W22.03XA Walked into furniture, initial encounter; Y93.89 Activity, other specified; Y92.89 Other specified places as the place of occurrence of the external cause; Y99.8 Other external cause status
CPT/HCPCS: 12013; 70450; 72125; 90471; 90715; 99284; J3490

== ENCOUNTER 2019-05-15 17:06 | Emergency (ER) | payer MEDICARE ==
[~2019-05-15] VITALS: Ht 162.6 cm; Wt 38.0 kg
[2019-05-15 17:40] LABS: BASO % 1 % (0-3); EOS % 0 % (0-3); HEMATOCRIT 41.2 % (36.0-47.0); HEMOGLOBIN 13.6 g/dL (12.0-15.5); LYMPH # 0.8 x10^3/uL (1.0-4.8); LYMPH % 13 % (24-48); MEAN CORPUSCULAR HEMOGLOBIN 28 pg (25-35); MEAN CORPUSCULAR HGB CONC 33 g/dL (31-37); MEAN CORPUSCULAR VOLUME 84 fL (79-100); MONO # 0.7 x10^3/uL (0.0-1.1); MONO % 11 % (0-9); NEUT # 4.5 x10^3/uL (1.8-7.7); NEUT % 76 % (31-73); PLATELET COUNT 200 x10^3/uL (140-400); RED BLOOD COUNT 4.88 x10^6/uL (3.50-5.40); RED CELL DISTRIBUTION WIDTH 15.5 % (11.5-14.5)
[2019-05-15] MEDS ORDERED: ONDANSETRON PF 4 MG/2 ML VIAL. IV ONE (17:45)
[2019-05-15] MEDS ORDERED: fentaNYL PF VIAL 100 MCG/2 ML VIAL IV ONE ×2 (17:45→21:15)
[2019-05-15] MEDS ORDERED: IV NORMAL SALINE 1000ML BAG 1,000 ML IV ONE (17:45)
--- NOTE | 2019-05-15 17:48 | PHYS DOC ---
Past Medical History Past Medical History: Anxiety, COPD, Depression, Hypertension, Vascular Disease Additional Past Medical Histor: OSTEOPOROSIS, CACHEXIA, SEPSIS, NICOTINE DEPENDENCE, CHRONIC BACK PAIN Past Surgical History: Hysterectomy, Oophorectomy Additional Past Surgical Histo: CERVICAL SPINE FUSION, RT HIP REPLACEMENT Smoking Status: Former Smoker Alcohol Use: None Drug Use: None Adult General Chief Complaint Chief Complaint: SHORTNESS OF BREATH HPI HPI Patient is a 63 year old female who presents with headache, shortness of breath, body aches, cough, loss of appetite, n, v, diarrhea and fever that started last night. The patient has been keeping fluids down at home and rotating Tylenol and ibuprofen. Review of Systems Review of Systems Constitutional: Reports fever or chills [] Eyes: Denies change in visual acuity, redness, or eye pain [] HENT: Denies nasal congestion or sore throat [] Respiratory: Reports cough and shortness of breath [] Cardiovascular: No additional information not addressed in HPI [] GI: Reports nausea, vomiting, and diarrhea, Denies abdominal pain, bloody stools. : Denies dysuria or hematuria [] Musculoskeletal: Denies back pain or joint pain [] Integument: Denies rash or skin lesions [] Neurologic: Denies headache, focal weakness or sensory changes [] Endocrine: Denies polyuria or polydipsia [] Complete systems were reviewed and found to be within normal limits, except as documented in this note. Current Medications Current Medications Current Medications Medications (Trade) Dose Ordered Sig/Jeanine Start Time Stop Time Status Last Admin Dose Admin Fentanyl Citrate (Fentanyl 2ml Vial) 50 mcg 1X ONCE 05/15/19 17:45 05/15/19 17:46 DC 05/15/19 17:57 50 MCG Ondansetron HCl (Zofran) 4 mg 1X ONCE 05/15/19 17:45 05/15/19 17:46 DC 05/15/19 17:55 4 MG Sodium Chloride 1,000 ml @ 1,000 mls/hr 1X ONCE 05/15/19 17:45 05/15/19 18:44 DC 05/15/19 17:55 1,000 MLS/HR Allergies Allergies Allergies Coded Allergies Type Severity Reaction Last Updated Verified No Known Drug Allergies 12/19/18 No Physical Exam Physical Exam Constitutional: Well developed, well nourished, no acute distress, non-toxic appearance. [] HENT: Normocephalic, atraumatic, bilateral external ears normal, oropharynx moist, no oral exudates, nose normal. [] Eyes: PERRLA, EOMI, conjunctiva normal, no discharge. [] Neck: Normal range of motion, no tenderness, supple, no stridor. [] Cardiovascular:Heart rate regular rhythm, no murmur [] Lungs & Thorax: Bilateral breath sounds clear to auscultation but diminished Abdomen: Bowel sounds normal, soft, no tenderness, no masses, no pulsatile masses. [] Skin: Warm, dry, no erythema, no rash. [] Back: No tenderness, no CVA tenderness. [] Extremities: No tenderness, no cyanosis, no clubbing, ROM intact, no edema. [] Neurologic: Alert and oriented X 3, normal motor function, normal sensory f unction, no focal deficits noted. [] Psychologic: Affect normal, judgement normal, mood normal. [] Current Patient Data Vital Signs Vital Signs Date Time Temp Pulse Resp B/P (MAP) Pulse Ox O2 Delivery O2 Flow Rate FiO2 05/15/19 18:14 102 18 177/129 (145) 92 Room Air 05/15/19 17:14 99.7 99.7 Lab Values Laboratory Tests Test 05/15/19 17:27 05/15/19 19:45 White Blood Count 6.0 x10^3/uL (4.0-11.0) Red Blood Count 4.88 x10^6/uL (3.50-5.40) Hemoglobin 13.6 g/dL (12.0-15.5) Hematocrit 41.2 % (36.0-47.0) Mean Corpuscular Volume 84 fL (79-100) Mean Corpuscular Hemoglobin 28 pg (25-35) Mean Corpuscular Hemoglobin Concent 33 g/dL (31-37) Red Cell Distribution Width 15.5 % (11.5-14.5) H Platelet Count 200 x10^3/uL (140-400) Neutrophils (%) (Auto) 76 % (31-73) H Lymphocytes (%) (Auto) 13 % (24-48) L Monocytes (%) (Auto) 11 % (0-9) H Eosinophils (%) (Auto) 0 % (0-3) Basophils (%) (Auto) 1 % (0-3) Neutrophils # (Auto) 4.5 x10^3/uL (1.8-7.7) Lymphocytes # (Auto) 0.8 x10^3/uL (1.0-4.8) L Monocytes # (Auto) 0.7 x10^3/uL (0.0-1.1) Eosinophils # (Auto) 0.0 x10^3/uL (0.0-0.7) Basophils # (Auto) 0.0 x10^3/uL (0.0-0.2) Prothrombin Time 14.0 SEC (11.7-14.0) Prothrombin Time INR 1.1 (0.8-1.1) Activated Partial Thromboplast Time 38 SEC (24-38) Sodium Level 133 mmol/L (136-145) L Potassium Level 3.8 mmol/L (3.5-5.1) Chloride Level 96 mmol/L (98-107) L Carbon Dioxide Level 22 mmol/L (21-32) Anion Gap 15 (6-14) H Blood Urea Nitrogen 11 mg/dL (7-20) Creatinine 0.8 mg/dL (0.6-1.0) Estimated GFR (Cockcroft-Gault) 72.4 BUN/Creatinine Ratio 14 (6-20) Glucose Level 124 mg/dL (70-99) H Lactic Acid Level 1.7 mmol/L (0.4-2.0) Calcium Level 10.2 mg/dL (8.5-10.1) H Magnesium Level 1.7 mg/dL (1.8-2.4) L Total Bilirubin 0.6 mg/dL (0.2-1.0) Aspartate Amino Transferase (AST) 38 U/L (15-37) H Alanine Aminotransferase (ALT) 19 U/L (14-59) Alkaline Phosphatase 102 U/L (46-116) Total Protein 8.0 g/dL (6.4-8.2) Albumin 4.1 g/dL (3.4-5.0) Albumin/Globulin Ratio 1.1 (1.0-1.7) Influenza Type A Antigen Negative (NEGATIVE) Influenza Type B Antigen Negative (NEGATIVE) Urine Collection Type Void Urine Color Yellow Urine Clarity Clear Urine pH 6.5 Urine Specific [place] 1.015 Urine Protein Negative mg/dL (NEG-TRACE) Urine Glucose (UA) Negative mg/dL (NEG) Urine Ketones (Stick) Trace mg/dL (NEG) Urine Blood Small (NEG) Urine Nitrite Negative (NEG) Urine Bilirubin Negative (NEG) Urine Urobilinogen Dipstick 0.2 mg/dL (0.2 mg/dL) Urine Leukocyte Esterase Moderate (NEG) Urine RBC 3-5 /HPF (0-2) Urine WBC 5-10 /HPF (0-4) Urine Squamous Epithelial Cells Few /LPF Urine Bacteria Many /HPF (0-FEW) Urine Mucus Mod /LPF Laboratory Tests 05/15/19 17:27 Laboratory Tests 05/15/19 17:27 EKG EKG [] Radiology/Procedures Radiology/Procedures [][facility] [address] [place] [address] IMAGING REPORT Signed PATIENT: BERTHA ZUÑIGA CACCOUNT: [id number] : 1955 LOCATION: ER AGE: 63 SEX: F EXAM STATUS: REG ER ORD. PHYSICIAN: YEFRI MALDONADO APRN REASON: cough, fever, sob PROCEDURE: CHEST PA & LATERAL CHEST PA LATERAL INDICATION: Cough, fever, dyspnea. COMPARISON STUDY: CT chest 01/26/2019. FINDINGS: Lungs: Hyperexpanded lung volume. No pulmonary mass or consolidation. The tracheobronchial tree and hilar structures are normal. Pleura: No pleural effusion or pneumothorax. Heart and Mediastinum: The cardiomediastinal silhouette is normal. The great vessels of the thorax are normal. IMPRESSION: No acute cardiopulmonary process. Electronically signed by: Carson Davis MD (05/15/2019 6:06 PM) [id number] DICTATED and SIGNED BY: CARSON DAVIS MD DATE: 05/15/191805 Course & Med Decision Making Course & Med Decision Making Pertinent Labs and Imaging studies reviewed. (See chart for details) Will get labs, Chest x-ray, UA, and EKG. Labs, chest x-ray, and EKG are unremarkable. UA shows leukocytes. Will treat for UTI with Keflex. I suspect that patient has the FLU and that the influenza was a false negative. Will place on Medrol dose pack, Tamiflu, Zofran, Compazine. Also instructed to drink plenty of fluids and to return if unable to do so. Also discussed Antipyretics. Arpiton Disclaimer Valarie Disclaimer This electronic medical record was generated, in whole or in part, using a voice recognition dictation system. Departure Departure Impression: Primary Impression: Influenza Additional Impression: Urinary tract infection Disposition: 01 HOME, SELF-CARE Condition: STABLE Referrals: WILLOW GANDHI MD (PCP) Patient Instructions: Influenza A (H1N1), Urinary Tract Infection Additional Instructions: Thank you for visiting [facility]. We appreciate you trusting us with your care. If any additional problems come up don't hesitate to return to visit us. Please follow up with your primary care provider so they can plan additional care if needed and know about the problem that you had. If symptoms worsen come back to the Emergency Department. Any concerning symptoms that start such as chest pain, shortness of air, weakness or numbness on one side of the body, running high fevers or any other concerning symptoms return to the ER. Please fill your medications at any pharmacy and follow the prescription instructions. Please drink plenty of fluids. If unable to keep fluids down please return to ER. Please get Tylenol and Ibuprofen over the counter. Give each medication every 6 hours as directed by the medication labels. In order to utilize the peak of the medications stagger the medications to where the child is getting one of the medications every 3 hours. For example if you give Ibuprofen at 3 PM, you then give Tylenol at 6 PM and Ibuprofen again at 9 PM, and then Tylenol at midnight. Please get Zyrtec over the counter and take per label instructions for runny nose. Scripts Cephalexin (KEFLEX) 500 Mg Capsule 1 CAP PO BID for 7 Days, #14 CAP 0 Refills Prov: YEFRI MALDONADO APRN 05/15/19 Prochlorperazine Maleate (Compazine) 10 Mg Tablet 1 TAB PO Q6HRS PRN for NAUSEA for 7 Days, #28 TAB 0 Refills Prov: YEFRI MALDONADO APRN 05/15/19 Ondansetron (ONDANSETRON ODT) 4 Mg Tab.rapdis 1 TAB PO PRN Q6-8HRS PRN for NAUSEA, #20 TAB Prov: YEFRI MALDONADO APRN 05/15/19 Oseltamivir Phosphate (TAMIFLU) 75 Mg Capsule 75 MG PO BID for FLU for 5 Days, #10 TAB 0 Refills Prov: YEFRI MALDONADO APRN 05/15/19 Methylprednisolone (MEDROL) 4 Mg Tab.ds.pk 1 PKG PO UD, #1 PKG Prov: YEFRI MALDONADO APRN 05/15/19 Problem Qualifiers Additional Impression: Urinary tract infection Urinary tract infection type: acute cystitis Hematuria presence: without hematuria Qualified Codes: N30.00 - Acute cystitis without hematuria YEFRI MALDONADO APRN May 15, 2019 17:48
[2019-05-15 17:54] LABS: CALCIUM 10.2 mg/dL (8.5-10.1); CREATININE 0.8 mg/dL (0.6-1.0); GFR 72.4; POTASSIUM 3.8 mmol/L (3.5-5.1)
[2019-05-15 18:00] LABS: ALBUMIN 4.1 g/dL (3.4-5.0); ALBUMIN/GLOBULIN RATIO 1.1 (1.0-1.7); MAGNESIUM 1.7 mg/dL (1.8-2.4); TOTAL BILIRUBIN 0.6 mg/dL (0.2-1.0)
--- NOTE | 2019-05-15 18:08 | RAD ---
CHEST PA LATERAL INDICATION: Cough, fever, dyspnea. COMPARISON STUDY: CT chest 01/26/2019. FINDINGS: Lungs: Hyperexpanded lung volume. No pulmonary mass or consolidation. The tracheobronchial tree and hilar structures are normal. Pleura: No pleural effusion or pneumothorax. Heart and Mediastinum: The cardiomediastinal silhouette is normal. The great vessels of the thorax are normal. IMPRESSION: No acute cardiopulmonary process. Electronically signed by: Júnior Davis MD (05/15/2019 6:06 PM) [id number]
[2019-05-15 18:11] LABS: INFLUENZA A PATIENT NEGATIVE (NEGATIVE); INFLUENZA B PATIENT NEGATIVE (NEGATIVE)
--- NOTE | 2019-05-15 18:30 | EKG ---
[facility] [address] [place] [address] Test Date: 2019-05-15 Test Time: 18:01:44 Pat Name: BERTHA ZUÑIGA Department: Room: Gender: F Certified Prosthetist: : 1955 Requested By: YEFRI MALDONADO Order Number: [id number] Reading MD: Measurements Intervals [place] Rate: 86 P: 90 WI: 150 QRS: 54 QRSD: 84 T: 64 QT: 354 QTc: 427 Interpretive Statements SINUS RHYTHM OTHERWISE NORMAL ECG RI6.01 No previous ECG available for comparison
[2019-05-15 19:59] LABS: BILIRUBIN,URINE NEGATIVE (NEG); CLARITY,URINE CLEAR; COLOR,URINE YELLOW; NITRITE,URINE NEGATIVE (NEG); PH,URINE 6.5; PROTEIN,URINE NEGATIVE (NEG-TRACE); UROBILINOGEN,URINE 0.2 mg/dL (0.2 mg/dL)
[2019-05-15 20:10] LABS: BACTERIA,URINE MANY /HPF (0-FEW); SQUAMOUS EPITHELIAL CELL,UR FEW /LPF
[2019-05-15] MEDS ORDERED: OSEL75CA PO (20:35)
[2019-05-15] MEDS ORDERED: METH4TAB2 PO (20:35)
[2019-05-15] MEDS ORDERED: ONDA4TAB12 PO (20:35)
[2019-05-15] MEDS ORDERED: PROC10TA57 PO (20:35)
[2019-05-15] MEDS ORDERED: CEPH-264 PO (20:37)
[2019-05-15 21:02] VITALS: BP 123/70
== END 2019-05-15 21:15 | disposition home or self-care (01) ==
LOC: ER 17:06
DX: R51 Headache (principal); R50.9 Fever, unspecified; R11.2 Nausea with vomiting, unspecified; R06.02 Shortness of breath; M79.10 Myalgia, unspecified site; R05 Cough; R19.7 Diarrhea, unspecified; R63.0 Anorexia; G89.29 Other chronic pain; J44.9 Chronic obstructive pulmonary disease, unspecified; I10 Essential (primary) hypertension; F41.9 Anxiety disorder, unspecified; F32.9 Major depressive disorder, single episode, unspecified; Z87.891 Personal history of nicotine dependence
CPT/HCPCS: 36415; 71046; 80053; 81001; 83605; 83735; 85025; 85610; 85730; 87086; 87804; 93005; 96361; 96374; 96375; 96376; 99285; J2405; J3010; J7030

== ENCOUNTER → 2020-06-02 | Outpatient (CLI) | payer MEDICARE ==
[~2020-06-02] MED LIST changes: -ALEN70TA6 PO; +ALEN70TA71 PO; +ASCO100019 PO; -ASCO10002 PO; +CEPH-264 PO; +METH4TAB2 PO; +ONDA4TAB12 PO; +OSEL75CA PO; -OXYC15TA PO; +OXYC15TA3 PO; +PROC10TA57 PO; -WARF-78 PO; +WARF5TAB2 PO
--- NOTE | 2020-06-02 15:07 | KCIC ---
EXAM: DUAL ENERGY X-RAY ABSORPTIOMETRY (DEXA). HISTORY: Postmenopausal screening. FINDINGS: The lowest measured T-score is -4.5 in the right hip, based on a bone mineral density of 0. 395 g/cm^2. Refer to the worksheets for full detail. There has been a 21.4 percent decrease in density of the right hip and 13.5 percent increase in densi ty of the lumbar spine compared to a study performed 11/16/2016 IMPRESSION: 1. Osteoporosis. Bone mineral density yields a T-score of -2.5 or less. Fracture risk is high. 2. FRAX report: Not calculated. METHODOLOGY: Dual energy x-ray absorptiometry was performed to measure bone mineral density. The foll owing analysis is based on the 2019 Official Positions of the International Society for Clinical Dens itometry: Measurements of the hips and the average of L1-L4 are preferred. When the spine and/or hip cannot be feasibly measured or interpreted, or in the setting of hyperparathyroidism, distal radial bone minera l density may be measured. The lumbar spine T-score is based on the average bone mineral density of L1-L4. In the setting of art ifact or anatomic abnormality, some lumbar levels may be excluded, and the remaining levels used for calculation. A single lumbar level is not used for diagnosis, and if only a single level is available for assessment, another anatomic site will be used to assign a diagnosis. The hip T-score is based on the bone mineral density measurement of the femoral neck or total proxima l femur of either side, whichever is lowest. Bilateral mean values are not used for diagnosis. The forearm T-score is derived from 33% of the distal radius of the nondominant forearm. Electronically signed by: Sona Zuleta MD (06/02/2020 3:05 PM) [id number]
== END ==
LOC: KCIC DEXA 13:30
PROVIDERS: ATTEND Internal Medicine Pulmonary Disease
DX: M81.0 Age-related osteoporosis without current pathological fracture (principal); Z78.0 Asymptomatic menopausal state
CPT/HCPCS: 77080

== ENCOUNTER → 2020-12-08 | Outpatient (CLI) | payer MEDICARE ==
[2020-09-09 11:00] VITALS: BP 145/89
[~2020-12-08] MED LIST changes: -CYAN-25 PO; +CYAN-25 PO/SL; -DOCU-150 PO; +DOCU-158 PO; +FLUT1DIS3 IH; +MIRT-8 PO; +TRAM50TA PO
--- NOTE | 2020-12-08 11:32 | RAD ---
EXAM: Bilateral digital screening mammogram with tomosynthesis. HISTORY: 65-year-old female presents for screening mammography. TECHNIQUE: Full-field digital craniocaudal and mediolateral oblique 2D and 3D tomosynthesis images of both breasts are obtained for evaluation. Computer aided detection was applied. COMPARISON: There is no mammogram within 10 years for comparison. This exam serves as a new baseline mammogram. BREAST PARENCHYMAL DENSITY: Level B - Scattered fibroglandular densities. FINDINGS: There is no new suspicious mass, microcalcification or region of architectural distortion. There are areas of benign asymmetry within the upper outer quadrants of both breasts. There are few b enign calcifications. IMPRESSION: BI-RADS Category 2: Benign finding(s). RECOMMENDATION: Annual mammography is recommended. If your mammogram demonstrates that you have dense breast tissue, which could hide abnormalities, and if you have other risk factors for breast cancer that have been identified, you might benefit from s upplemental screening tests that may be suggested by your ordering physician. Dense breast tissue, i n and of itself, is a relatively common condition. This information is not provided to cause undue c oncern, but rather to raise your awareness and to promote discussion with your physician regarding th e presence of other risk factors, in addition to dense breast tissue. A report of your mammography re sults will be sent to you and your physician. You should contact your physician if you have any ques tions or concerns regarding this report. Mammography is a sensitive method for finding small breast cancers, but it does not detect them all a nd is not a substitute for careful clinical examination. A negative mammogram does not negate a clin ically suspicious finding and should not result in delay in biopsying a clinically suspicious abnorma lity. PQRS compliance statement - Patient information was entered into a reminder system with a target due date for the next mammogram. "Our facility is accredited by the [employer] Mammography Program." Electronically signed by: Sona Zuleta MD (12/08/2020 11:30 AM) [id number]
== END ==
LOC: MAMMO 11:00
PROVIDERS: ATTEND Family Medicine
DX: Z12.31 Encounter for screening mammogram for malignant neoplasm of breast (principal); R92.1 Mammographic calcification found on diagnostic imaging of breast
CPT/HCPCS: 77063; 77067

== ENCOUNTER 2020-12-31 15:20 | Emergency (ER) | payer MEDICARE ==
[~2020-12-31] VITALS: Ht 162.6 cm; Wt 41.5 kg
--- NOTE | 2020-12-31 15:45 | PHYS DOC ---
Past Medical History Past Medical History: Anxiety, COPD, Depression, Hypertension, Vascular Disease Additional Past Medical Histor: OSTEOPOROSIS, CACHEXIA, SEPSIS, NICOTINE DEPENDENCE, CHRONIC BACK PAIN Past Surgical History: Hysterectomy, Oophorectomy Additional Past Surgical Histo: CERVICAL SPINE FUSION, RT HIP REPLACEMENT Smoking Status: Former Smoker Alcohol Use: None Drug Use: None General Adult EDM: Chief Complaint: WRIST PAIN HPI: HPI: 65-year-old female past medical history of COPD, osteoporosis, urinary inco ntinence, anxiety/depression, chronic low back pain (takes tramadol and valium), and marijuana use, presents the ED with complaints of right wrist pain stating she fell yesterday in her house around 230 afternoon, landing on her outstretched right dominant hand. Reports did not her head or lose consciousness. Was not under the influence of any alcohol or drugs. Does smoke marijuana but states she was non-smoking yesterday. Is not on any anticoagulants. No prior injury to this extremity in the past. Med list reviewed by myself with son at bedside who is patient's "yardage control clerk," such that he cooks and cleans for pt, (patient consents to his/her/their knowledge and involvement in pts' medical care). PCP-Dr. Hernandez, pt believes in November her flu, pneumonia and shingles vaccines were updated. Patient has received the moderna vaccine. Tetanus vaccine UTD. Son reports patient is somewhat forgetful. Patient ambulates with a cane/does not drive. Cannot recall any skin break or bleeding from this injury. No relief with ibuprofen prior to ED arrival. Review of Systems: Review of Systems: Constitutional: Denies fever or chills. [] Eyes: Denies change in visual acuity. [] HENT: Denies nasal congestion or sore throat. [] Respiratory: Denies cough or shortness of breath. [] Cardiovascular: Denies chest pain or edema. [] GI: Denies abdominal pain, nausea, vomiting, bloody stools or diarrhea. [] : Denies saddle anesthesia or dysuria Musculoskeletal: Denies flank pain or radiculopathy Integument: Denies rash or diaphoresis Neurologic: Denies headache, neck pain, focal weakness or sensory changes. [] Endocrine: Denies polyuria or polydipsia. [] Lymphatic: Denies swollen glands. [] Psychiatric: Denies depression or anxiety. [] Heart Score: C/O Chest Pain: No Risk Factors: Risk Factors: DM, Current or recent (<one month) smoker, HTN, HLP, family history of CAD, obesity. Risk Scores: Score 0 - 3: 2.5% MACE over next 6 weeks - Discharge Home Score 4 - 6: 20.3% MACE over next 6 weeks - Admit for Clinical Observation Score 7 - 10: 72.7% MACE over next 6 weeks - Early Invasive Strategies Allergies: Allergies: Allergies Coded Allergies Type Severity Reaction Last Updated Verified No Known Drug Allergies 12/19/18 No Physical Exam: PE: Constitutional: Well developed, well nourished, no acute distress, non-toxic appearance. HENT: Normocephalic, atraumatic, Eyes: EOMI, conjunctiva normal, no discharge. Neck: Normal range of motion, supple, Cardiovascular: S1/2 present, regular rhythm Lungs & Thorax: Speaking in full sentences, bilateral equal chest rise, no tachypnea or increased work of breathing Abdomen: soft, no tenderness, Skin: Warm, dry, cap refill less than 1 second Back: No midline spinal step-offs or tenderness, no CVA tenderness. [] Extremities: Ventral right wrist pain worsened with flexion, right wrist held in extension, equal radial pulses, significant contusion over dorsal wrist with c ircumferential erythema from wrist up 25% right forearm, no pain over right phalanges or right elbow and shoulder Neurologic: Alert, normal median/ulnar/radial nerve sensation intact Psychologic: Affect normal, judgement normal, mood normal. [] EKG: EKG: [] Radiology/Procedures: Radiology/Procedures: IMAGING REPORT Signed PATIENT: BERTHA ZUÑIGA CACCOUNT: [id number] : 1955 LOCATION: ER AGE: 65 SEX: F EXAM STATUS: REG ER ORD. PHYSICIAN: MIKEL POPE DO REASON: bruise/pain/cellulitis PROCEDURE: WRIST 3V RIGHT AP lateral and oblique views of the right hand and wrist with AP and lateral views of the right forearm. No comparison. INDICATION: Bruise, pain, cellulitis FINDINGS: There is a fracture of the distal radial diaphysis. Intra-articular extension is not obvious. The patient does have significant osteopenia. There is a joint effusion identified anteriorly. No other fracture subluxation dislocation. Carpal bones appear line. Electronically signed by: Varun Bertrand MD (12/31/2020 3:58 PM) [facility] DICTATED and SIGNED BY: VARUN BERTRAND MD DATE: 12/31/20 [id number] 0 Patient informed of findings. Splint applied by emt. The splint is checked by myself, with appropriate stabilization of the injury. Distal capillary refill normal and distal neurologic function intact Course & Med Decision Making: Course & Med Decision Making Pertinent Labs and Imaging studies reviewed. (See chart for details) Concern for right distal radius fracture with associated contusion and cellulitis, no severe pain out of proportion proportion. Patient afebrile with normal neurovascular exam. Patient placed in a sugar tong splint. Analgesic instructions strictly given to patient with her son at bedside -patient understands to not mix this medication with tramadol, Valium, marijuana or any other depressant. Patient also understands not to drink alcohol or drive with this medication and that this medication can cause delirium. Patient w/very supportive son who agrees to observe pt. will discharge home with strict ED return precautions were given for severe pain, skin color changes, sensorimotor deficits or neurologic deficits. Encouraged urgent outpatient follow-up with PMD and orthopedic surgery within 1 week. Life-threatening processes were considered but are low suspicion at this time, given history, physical exam and ED workup. Pt was educated on all prescription medications and adverse effects. All patient's questions were answered and pt was stable at time of discharge. Life/limb-threatening differential includes but is not limited to, trauma (fracture, dislocation, laceration, compartment syndrome, tendon or ligament injury), neurovascular injury or deficitcva/tia, infection (osteomyelitis, abscess, cellulitis, septic arthritis, necrotizing fasciitis), deep vein thrombosis, renal/cardiac/liver disease, medication adverse effect, lymphedema/anasarca, vascular insufficiency or malignancy, I have spoken with the patient and/or caregivers. I explained the patient's condition, diagnoses and treatment plan based on the information available to me at this time. I have answered the patient and/or caregiver's questions and addressed any concerns. The patient and/or caregivers have a good understanding of patient's diagnosis, condition and treatment plan as can be expected at this point. Vital signs have been stable. Patient's condition is stable and appropriate for discharge from the emergency department. Patient will pursue further outpatient evaluation with primary care physician or other designated or consulting physician as outlined in the discharge i nstructions. The patient and/or caregivers are agreeable to this plan of care and follow-up instructions have been explained in detail. The patient and/or caregivers have received these instructions in written form and have expressed an understanding of the discharge instructions. The patient and/or caregivers are aware that any significant change of condition or worsening of symptoms should prompt immediate return to this or the closest emergency department or call to 911. [employer] Disclaimer: [employer] Disclaimer: This electronic medical record was generated, in whole or in part, using a voice recognition dictation system. Departure Departure Impression: Primary Impression: Fracture of right distal radius Additional Impressions: Contusion of wrist, right Cellulitis of forearm, right Disposition: 01 HOME / SELF CARE / HOMELESS Condition: STABLE Referrals: DYLLAN RUBALCAVA MD (PCP) Follow-up with your primary care physician in 2 days for wound check of cellulitis OR FOLLOW UP WITH FAMILY MEDICINE: [address] [facility], [address] [place] [address] Patient Instructions: Cast or Splint Care, Cellulitis, Radius Fracture with [facility] Additional Instructions: FOLLOW UP WITH ORTHOPEDICS: FOR DEFINITIVE MANAGEMENT within 1-2 weeks Orthopaedic Surgery [address] [facility], [address] [place] [address] EMERGENCY DEPARTMENT GENERAL DISCHARGE INSTRUCTIONS Thank you for coming to [facility] Emergency Department (ED) today and trusting us with you care. We trust that you had a positive experience in our Emergency Department. If you wish to speak to the department management, you may call the Director at [phone]. YOUR FOLLOW UP INSTRUCTIONS ARE FOLLOWS: 1. Do you have a private Doctor? If you do not have a private doctor, please ask for a resource list of physicians or clinics that may be able to assist you with follow up care. 2. The Emergency Physicain has interpreted your x-rays. The X-Ray specialist will also review them. If there is a change in the findings, you will be notified in 48 hours when at all possible. 3. A lab test or culture has been done, your results will be reviewed and you will be notified if you need a change in treatment. ADDITIONAL INSTRUCTIONS AND INFORMATION: 1. Your care today has been supervised by a physician who is specially trained in emergency care. Many problems require more than one evaluation for a complete diagnosis and treatment. We recommend that you schedule your follow up appointment as recommended to ensure complete treatment of you illness or injury. If you are unable to obtain follow up care and continue to have a problem, or if your condition worsens, we recommend that you return to the ED. 2. We are not able to safely determine your condition over the phone nor are we able to give sound medical advice over the phone. For these safety reasons, if you call for medical advice we will ask you to come to the ED for further evaluation. 3. If you have any questions regarding these discharge instructions please call the ED at [phone]. SAFETY INFORMATION: In the interest of safety, wellness, and injury prevention; we encourage you to wear your sealbelt, if you smoke; quite smoking, and we encourage family to use a protective helmet for bicycling and other sporting events that present an increased risk for head injury. IF YOUR SYMPTOMS WORSEN OR NEW SYMPTOMS DEVELOP, OR YOU HAVE CONCERNS ABOUT YOUR CONDITION; OR IF YOUR CONDITION WORSENS WHILE YOU ARE WAITING FOR YOUR FOLLOW UP APPO INTMENT; EITHER CONTACT YOUR PRIMARY CARE DOCTOR, THE PHYSICIAN WHOSE NAME AND NUMBER YOU WERE GIVEN, OR RETURN TO THE ED IMMEDIATELY. Scripts Hydrocodone Bit/Acetaminophen (HYDROCODONE-APAP 5-325 ) 1 Tab Tablet 1 TAB PO PRN Q6HRS PRN for PAIN for 3 Days, #12 TAB 0 Refills Prov: MIKEL POPE DO 12/31/20 MIKEL POPE DO Dec 31, 2020 15:45
--- NOTE | 2020-12-31 16:00 | RAD ---
AP lateral and oblique views of the right hand and wrist with AP and lateral views of the right forea rm. No comparison. INDICATION: Bruise, pain, cellulitis FINDINGS: There is a fracture of the distal radial diaphysis. Intra-articular extension is not obvious. The pat ient does have significant osteopenia. There is a joint effusion identified anteriorly. No other frac ture subluxation dislocation. Carpal bones appear line. Electronically signed by: Varun Bertrand MD (12/31/2020 3:58 PM) [facility]
[2020-12-31] MEDS ORDERED: HYDROmorphone 2 MG/ML VIAL IVP ONE (16:15)
[2020-12-31] MEDS ORDERED: IV NORMAL SALINE 1000ML BAG 1,000 ML IV ONE (16:15)
[2020-12-31] MEDS ORDERED: VANCOMYCIN PER PHARMACY MC PRN (16:15)
[2020-12-31] MEDS ORDERED: VANCOMYCIN 1 GM in IV NORMAL SALINE 250ML 250 ML IV ONE (17:00)
[2020-12-31] MEDS ORDERED: HYDR-2761 PO (17:38)
[2020-12-31 18:30] VITALS: BP 150/111
== END 2020-12-31 18:47 | disposition home or self-care (01) ==
LOC: ER 15:20
DX: S52.501A Unspecified fracture of the lower end of right radius, initial encounter for closed fracture (principal); S60.211A Contusion of right wrist, initial encounter; L03.113 Cellulitis of right upper limb; J44.9 Chronic obstructive pulmonary disease, unspecified; I10 Essential (primary) hypertension; Z87.891 Personal history of nicotine dependence; G89.29 Other chronic pain; W18.39XA Other fall on same level, initial encounter; Y93.89 Activity, other specified; Y92.89 Other specified places as the place of occurrence of the external cause; Y99.8 Other external cause status
CPT/HCPCS: 29125; 73090; 73110; 73130; 96365; 96366; 96375; 99285; J1170; J3370; J7030; J7050

== ENCOUNTER 2021-01-02 16:25 | Emergency (ER) | payer MEDICARE ==
[~2021-01-02] VITALS: Ht 162.6 cm; Wt 41.3 kg
[~2021-01-02 16:25] MED LIST changes: +HYDR-2761 PO
[2021-01-02 17:25] VITALS: BP 137/77
--- NOTE | 2021-01-02 17:46 | PHYS DOC ---
Past Medical History Past Medical History: Anxiety, COPD, Depression, Hypertension, Vascular Disease Additional Past Medical Histor: MALNUTRICIAN, OSTEOPOROSIS (FRANK KENNEDY APRN) Past Surgical History: No Surgical History Additional Past Surgical Histo: CERVICAL SPINE FUSION, RT HIP REPLACEMENT (FRANK KENNEDY APRN) Smoking Status: Former Smoker Alcohol Use: None Drug Use: None (FRANK KENNEDY APRN) General Adult EDM: Chief Complaint: WRIST PAIN HPI: HPI: Patient is a 65-year-old female that presents today with increased right arm pain. Patient fell on December 30 and outstretched hands, presented on December 31 for evaluation of this was noted to have a radial head fracture. At the time wrist was swollen and red. Patient was splinted given hydrocodone for pain control at home and told to follow-up with orthopedics this week. Patient called orthopedic physician today they instructed her to come to the emergency department due to past medical history of bacteremia and concern with cellulitis. Patient states that she has been icing and elevating the arm at home, she has not been able to tolerate hydrocodone due to nausea with the medication. Patient does live at home alone the son does check in multiple times throughout throughout the day with patient by phone. Patient does have a history of neuropathy states the left side is more affected by the neuropathy and does take tramadol for pain control with that. (FRANK KENNEDY POWER ELECTRONICS ENGINEER) Review of Systems: Review of Systems: Constitutional: Denies fever or chills. [] Eyes: Denies change in visual acuity. [] HENT: Denies nasal congestion or sore throat. [] Respiratory: Denies cough or shortness of breath. [] Cardiovascular: Denies chest pain or edema. [] GI: Denies abdominal pain, nausea, vomiting, bloody stools or diarrhea. [] : Denies dysuria. [] Musculoskeletal: Right arm pain] Integument: Denies rash. [] Neurologic: Denies headache, focal weakness or sensory changes. [] Endocrine: Denies polyuria or polydipsia. [] Lymphatic: Denies swollen glands. [] Psychiatric: Denies depression or anxiety. [] (FRANK KENNEDY APRN) Heart Score: C/O Chest Pain: N/A Risk Factors: Risk Factors: DM, Current or recent (<one month) smoker, HTN, HLP, family hi story of CAD, obesity. Risk Scores: Score 0 - 3: 2.5% MACE over next 6 weeks - Discharge Home Score 4 - 6: 20.3% MACE over next 6 weeks - Admit for Clinical Observation Score 7 - 10: 72.7% MACE over next 6 weeks - Early Invasive Strategies (FRANK KENNEDY APRN) Current Medications: tramadol prn (FRANK KENNEDY APRN) Allergies: Allergies: Allergies Coded Allergies Type Severity Reaction Last Updated Verified No Known Drug Allergies 12/19/18 No (FRANK KENNEDY APRN) Physical Exam: PE: Constitutional: Thin femail, mild distress, non-toxic appearance. [] HENT: Normocephalic, atraumatic, bilateral external ears normal, oropharynx moist, no oral exudates, nose normal. [] Eyes: PERRLA, EOMI, conjunctiva normal, no discharge. [] Neck: Normal range of motion, no tenderness, supple, no stridor. [] Cardiovascular:Heart rate regular rhythm, no murmur [] Lungs & Thorax: Bilateral breath sounds clear to auscultation [] Abdomen: Bowel sounds normal, soft, no tenderness, no masses, no pulsatile masses. [] Skin: Warm, dry, no erythema, no rash. [] Back: No tenderness, no CVA tenderness. [] Extremities: Right arm sugar tong splint removed, right arm ecchymosis noted, wrist is swollen, no redness no cellulitis noted. Peripheral pulses distal to injury intact, cap refill 2+ distal to injury sensory is intact distal to injury, patient able to move right digits within normal limit. Neurologic: Alert and oriented X 3, normal motor function, normal sensory function, no focal deficits noted. [] Psychologic: Affect normal, judgement normal, mood normal. [] (FRANK KENNEDY APRN) Current Patient Data: Vital Signs: Vital Signs Date Time Temp Pulse Resp B/P (MAP) Pulse Ox O2 Delivery O2 Flow Rate FiO2 01/02/21 17:25 99.2 95 20 137/77 (97) 95 Room Air 99.2 (FRANK KENNEDY APRN) EKG: EKG: [] (FRANK KENNEDY APRN) Radiology/Procedures: Radiology/Procedures: PROCEDURE: WRIST 3V RIGHT Right wrist 3 views: Reason for examination: Known fracture. Increased pain. Comparison is made to previous study dated 12/31/2020. Fracture of the distal radius is again evident and there is some mild dorsal angulation. This however appears to be slightly improved when compared to previous exam. No new site of fracture or dislocation is seen in the joint spaces are maintained. IMPRESSION: Fracture of the distal radius with mild dorsal angulation but slightly improved when compared to previous exam. No new site of fracture or dislocation is evident. Electronically signed by: Ronna Claire MD (01/03/2021 12:01 AM) [facility] (FRANK KENNEDY APRN) Course & Med Decision Making: Course & Med Decision Making Right sugar tong splint removed patient's arm placed on pillow, son at bedside this POWER ELECTRONICS ENGINEER was shown a picture of arm from Tuesday, redness that was noted on Tuesday is no longer an arm, son states arm looks better. Patient states she has been using a 1 use only ice pack at home that was given to her in the emergency department. She has only been using that 1-2 times per day. [ This POWER ELECTRONICS ENGINEER placed right wrist sugar tong splint, neurovascular intact before and after splint placement. Patient and son given instructions on ice and elevation 20 minutes on 4-5 times daily, the importance of elevation to decrease swelling and pain. Patient does have tramadol at home for chronic pain use and is agreeable to using her tramadol for this acute pain. Patient is to follow-up with Dr. Sadler on Tuesday by phone for follow-up appointment. Patient and son verbalized understanding of instructions and are amicable to the plan of care. (FRANK KENNEDY APRN) Course & Med Decision Making I have reviewed and was available for consultation in the emergency department for this patient that was seen by midlevel provider. Agree with plan. Faisal Oconnor DO (FAISAL OCONNOR DO) [facility] Disclaimer: [facility] Disclaimer: This electronic medical record was generated, in whole or in part, using a voice recognition dictation system. (FRANK KENNEDY APRN) Departure Departure Impression: Primary Impression: Right wrist fracture Qualified Codes: S62.101D - Fracture of unspecified carpal bone, right wrist, subsequent encounter for fracture with routine healing Disposition: HOME / SELF CARE / HOMELESS Condition: STABLE Referrals: DYLLAN RUBALCAVA MD (PCP) SULAIMAN SADLER MD Patient Instructions: Cast or Splint Care, RICE - Routine Care for Injuries, Wrist Fracture Additional Instructions: Home tramadol or [id number] Tylenol as labeled directed for pain Ice 20 minutes on 4-5 times daily for the next 48 hours, keep wrist elevated while at home and sitting in a chair. Return to the emergency department for increased pain, numbness, tingling in fingers or any other concerns you are having. Call Dr. Sadler's office on Tuesday for follow-up appointment. FRANK KENNEDY APRN Jan 02, 2021 17:46 FAISAL OCONNOR DO Jan 05, 2021 06:55
[2021-01-02] MEDS ORDERED: traMADol 50 MG TABLET PO ONE (18:00)
--- NOTE | 2021-01-03 00:04 | RAD ---
Right wrist 3 views: Reason for examination: Known fracture. Increased pain. Comparison is made to previous study dated 12/31/2020. Fracture of the distal radius is again evident and there is some mild dorsal angulation. This however appears to be slightly improved when compared to previous exam. No new site of fracture or dislocati on is seen in the joint spaces are maintained. IMPRESSION: Fracture of the distal radius with mild dorsal angulation but slightly improved when compared to prev ious exam. No new site of fracture or dislocation is evident. Electronically signed by: Ronna Claire MD (01/03/2021 12:01 AM) [facility]
== END 2021-01-02 18:52 | disposition home or self-care (01) ==
LOC: ER 16:25
DX: S52.501A Unspecified fracture of the lower end of right radius, initial encounter for closed fracture (principal); J44.9 Chronic obstructive pulmonary disease, unspecified; I10 Essential (primary) hypertension; W18.39XA Other fall on same level, initial encounter; Y93.89 Activity, other specified; Y92.89 Other specified places as the place of occurrence of the external cause; Y99.8 Other external cause status
CPT/HCPCS: 29125; 73110; 99283